=== PATIENT | male | born 1960 | race Caucasian/White ===

== ENCOUNTER 2020-05-22 15:37 | Inpatient (IN) | payer OTHER ==
--- NOTE | 2020-05-22 16:33 | RAD REPORT ---
EXAM DESCRIPTION: Alberto Single View05/22/2020 4:21 pm CLINICAL HISTORY: Chest pain COMPARISON: none FINDINGS: [id number] bilateral pulmonary opacities. . The heart is normal size IMPRESSION: [id number] bilateral pulmonary opacities may represent pulmonary edema or pneumon ia
[2020-05-22] MEDS ORDERED: METHYLPREDNISOLONE 125 MG INJ ONE (16:44)
[2020-05-22] MEDS ORDERED: ALBUTEROL 2.5 MG/3 ML NEB SOL ONE (16:44)
[2020-05-22] MEDS ORDERED: NA CHLORIDE 0.9% 100 ML ONE (16:44)
[2020-05-22] MEDS ORDERED: IPRATROPIUM BROM 0.5MG/2.5ML ONE (16:44)
[2020-05-22] MEDS ORDERED: CEFTRIAXONE/SWI 1gm 1 GM/10 ML SYR ONE (16:44)
[2020-05-22 16:56] LABS: ALT/SGPT 21 U/L (12-78); AST/SGOT 27 U/L (15-37); Albumin 3.1 g/dL (3.4-5.0); Alkaline Phosphatase 137 U/L (45-117); BUN Blood Urea Nitrogen 10 mg/dL (7-18); Bicarbonate 24 mmol/L (21-32); Bilirubin Direct 0.3 mg/dL (0-0.2); Bilirubin Total 0.9 mg/dL (0.2-1.0); Glucose Level 183 mg/dL (74-106); Magnesium 1.9 mg/dL (1.8-2.4); NT PRO-BNP 168 pg/mL (<125); Protein, Total 8.7 g/dL (6.4-8.2); Sodium Level 133 mmol/L (136-145); Troponin (Emerg Dept Use Only) < 0.02 ng/mL (0.0-0.045)
[2020-05-22 17:03] LABS: Blood Gas Oxyhemoglobin 84.9 % (94-97); Blood O2 Saturation 88.3 % (92-98.5)
[2020-05-22 17:16] LABS: Absolute Lymphocytes (CBC) 1.1 K/uL (0.7-4.9); Basophils % 0.4 % (0-1.3); Hematocrit 47.3 % (39.6-49.0); Lymphocytes % 4.9 % (15.3-44.8); MPV 7.7 fL (7.6-11.3); Protime INR 1.34; RBC Red Blood Cell Count 5.78 M/uL (4.33-5.43)
[2020-05-22] MEDS ORDERED: NA CHLORIDE 0.9% 500 ML ONE (17:57)
[2020-05-22 18:24] LABS: SARS-COV-2 RT PCR NEGATIVE (NEGATIVE)
[2020-05-22 18:51] LABS: Ferritin 472.7 ng/mL (26-388)
--- NOTE | 2020-05-22 19:10 | ER ---
Nurse's Notes [facility] Name: Say Olivera Age: 60 yrs Sex: Male : 1960 Arrival Date: 05/22/2020 Time: 15:39 Bed 4 Private MD: Diagnosis: Pneumonia, unspecified organism;Hypoxia Presentation: 05/22 15:47 Chief complaint: Patient states: CP, cough, SOB since Thursday. No known fever. ll1 Coronavirus screen: Client denies travel out of the [place] in the last 14 days. congestion, cough unrelated to allergies, difficulty breathing, shortness of breath, Client presents with at least one sign or symptom that may indicate coronavirus-19. Standard/surgical mask placed on the client. Ebola Screen: Patient denies travel to an Ebola-affected area in the 21 days before illness onset. Initial Sepsis Screen: Does the patient meet any 2 criteria? RR > 20 per min. HR > 90 bpm. No. Patient's initial sepsis screen is negative. Does the patient have a suspected source of infection? Yes: Productive cough/pneumonia. Risk Assessment: Do you want to hurt yourself or someone else? Patient reports no desire to harm self or others. Onset of symptoms was May 18, 2020. 15:47 Method Of Arrival: Ambulatory ll1 15:47 Acuity: PIERRE 2 ll1 Triage Assessment: 15:50 General: Appears distressed, uncomfortable, obese, Behavior is cooperative, appropriate bp for age, anxious. Pain: Denies pain. EENT: No deficits noted. Neuro: No deficits noted. Cardiovascular: Clubbing of nail beds Patient's skin is warm and dry. Respiratory: Airway is patent Respiratory effort is even, labored, pursed lip, Respiratory pattern is hyperventilation. GI: No signs and/or symptoms were reported involving the gastrointestinal system. : No signs and/or symptoms were reported regarding the genitourinary system. Derm: Skin is dusky. Musculoskeletal: No deficits noted. Historical: - Allergies: 15:46 thorazine; ll1 15:46 yellow dye #5; ll1 15:46 shrimp/shellfish; ll1 - PMHx: 15:46 Diabetes - IDDM; schizoaffective; COPD; Hypertension; High Cholesterol; ll1 15:48 polycythemia vera; ll1 - PSHx: 15:46 None; ll1 - Immunization history:: Flu vaccine is up to date. . - Social history:: Smoking status: Patient reports the use of cigarette tobacco products, smokes one-half pack cigarettes per day. Screenin:50 Abuse screen: Denies threats or abuse. Denies injuries from another. Nutritional bp screening: No deficits noted. Tuberculosis screening: No symptoms or risk factors identified. Fall Risk None identified. Assessment: 15:50 General: SEE TRIAGE NOTE. bp 16:58 Reassessment: No changes from previously documented assessment. Patient and/or family bp updated on plan of care and expected duration. Pain level reassessed. Patient is alert, oriented x 3, equal unlabored respirations, skin warm/dry/pink. RT AT B/S. 18:02 Reassessment: No changes from previously documented assessment. Patient and/or family bp updated on plan of care and expected duration. Pain level reassessed. Patient is alert, oriented x 3, equal unlabored respirations, skin warm/dry/pink. BIPAP IN PLACE. DISPO PENDING. 19:32 General: Appears uncomfortable, Behavior is appropriate for age. Pain: Denies pain. ea Neuro: Level of Consciousness is awake, alert, obeys commands, Oriented to person, place, time. Cardiovascular: Patient's skin is warm and dry. Respiratory: Airway is patent Respiratory effort is even, unlabored, Respiratory pattern is regular, symmetrical. Derm: Skin is pink, warm \T\ dry. Vital Signs: 15:47 BP 115 / 67; Pulse 114; Resp 28; Temp 97.9; Pulse Ox 81% ; Weight 121.56 kg; Height 5 ll1 ft. 6 in. (167.64 cm); Pain 6/10; 16:58 BP 124 / 74; Pulse 110; Resp 39; Pulse Ox 90% on 15% Nebulizer Mask; bp 18:02 BP 134 / 99; Pulse 102; Resp 44; Pulse Ox 99% ; bp 19:30 BP 121 / 72; Pulse 90; Resp 32; Pulse Ox 94% on BiPAP; sg 20:44 BP 132 / 83; Pulse 98; Resp 25; Temp 98; Pulse Ox 95% on BiPAP; ea 15:47 Body Mass Index 43.26 (121.56 kg, 167.64 cm) 1 ED Course: 15:39 Patient arrived in ED. ds1 15:46 Arm band placed on Patient placed in an exam room, on a stretcher. ll1 15:48 Triage completed. ll1 15:50 Kamron Prater NP is PHCP. pm1 15:50 Ace Walker MD is Attending Physician. pm1 15:50 Patient has correct armband on for positive identification. Bed in low position. Call bp light in reach. Side rails up X2. monitoring engineer on. Pulse ox on. NIBP on. 15:56 Robin Schwarz, HEATHER is Primary Nurse. bp 16:05 EKG done, by ED staff, reviewed by Kamron Prater NP. em1 16:15 Inserted saline lock: 20 gauge in right antecubital area, using aseptic technique. bp Blood collected. 16:48 XRAY Chest (1 view) In Process Unspecified. EDMS 17:22 COVID swab sent to lab. em1 19:03 CT Chest For PE Angio In Process Unspecified. EDMS 19:09 Yfn Mccarty FNP-C is Hospitalizing Provider. pm1 19:16 Mario Gregorio MD is Hospitalizing Provider. la1 20:12 No provider procedures requiring assistance completed. Patient admitted, IV remains in sg place. 21:04 Contacted [place] Notification Center regarding pt admission. The Notification ID is [id number]. The Authorization ID is [id number]. Information passed on to Registration. Administered Medications: 16:15 Drug: Albuterol - atroVENT (ipratropium) (3:1) (2.5 mg - 0.5 mg) 3 ml Route: Nebulizer; bp 17:00 Follow up: Response: No adverse reaction bp 16:15 Drug: SOLU-Medrol 125 mg Route: IVP; Site: right antecubital; bp 16:59 Follow up: Response: No adverse reaction bp 16:15 Drug: Rocephin (cefTRIAXone) 1 grams Route: IV; Rate: calculated rate; Site: right bp antecubital; 17:30 Drug: NS 0.9% 500 ml Route: IV; Rate: bolus; Site: right antecubital; bp 19:00 Follow up: Response: No adverse reaction; IV Status: Completed infusion sg 20:21 Not Given (Other Intervention Used): NS 0.9% (30 ml/kg) 30 ml/kg IV at bolus once; sg Sepsis Protocol 20:30 Drug: AZITHromycin 500 mg Route: IVPB; Infused Over: 1 hrs; Site: right antecubital; sg Outcome: 19:09 Decision to Hospitalize by Provider. pm1 20:12 Instructed on the need for admit, Demonstrated understanding of instructions. sg 20:43 Admitted to Med/surg accompanied by tech, via wheelchair, room 205, on monitor, Report ea called to Receiving nurse on second floor 20:43 Condition: stable 20:44 Patient left the ED. sg Signatures: Dispatcher [employer] EDMS Edward Bermeo, RN RN Atiya Shelton ds1 Ramo Olvera em1 Yfn Mccarty, BLANKING PRESS OPERATOR-C BLANKING PRESS OPERATOR-Cla1 Kamron Prater, FOOD AND BEVERAGE LEAD FOOD AND BEVERAGE LEAD pm1 Tammy Catalan RN Robin Valadez ea, RN RN bp Lewis, Lynsay, RN RN ll1 Massimo Heath tt3 Corrections: (The following items were deleted from the chart) 15:56 15:47 Chief complaint: Patient states: CP, SOB since Thursday. No known fever. ll1 ll1 20:38 18:30 AZITHromycin 500 mg IVPB in right forearm over 1 hrs [facility] 20:38 19:30 Response: No adverse reaction; IV Status: Completed infusion [facility] 20:38 20:30 AZITHromycin 500 mg IVPB in right forearm over 1 hrs [facility]
--- NOTE | 2020-05-22 19:10 | EDPHYS ---
Physician Documentation [facility] Name: Say Olivera Age: 60 yrs Sex: Male : 1960 Arrival Date: 05/22/2020 Time: 15:39 Bed 4 Private MD: ED Physician Ace Walker HPI: 05/22 16:03 This 60 yrs old Male presents to ER via Ambulatory with complaints of Chest pm1 Pain, Shortness Of Breath. 16:03 The patient has shortness of breath at rest. Onset: The symptoms/episode began/occurred pm1 and became worse 3 day(s) ago, Has baseline shortness of breath for many years. Duration: The symptoms are continuous, and are steadily getting worse. The patient's shortness of breath is aggravated by exertion, light activity, is alleviated by nothing. Associated signs and symptoms: Pertinent positives: productive cough, Pertinent negatives: fever, nausea, vomiting. Severity of symptoms: in the emergency department the symptoms are worse. The patient has been recently seen by a physician: Recently diagnosed with COPD by PCP LINDY. Patient smoking 2-4 cigarettes per day. Historical: - Allergies: 15:46 thorazine; ll1 15:46 yellow dye #5; ll1 15:46 shrimp/shellfish; ll1 - PMHx: 15:46 Diabetes - IDDM; schizoaffective; COPD; Hypertension; High Cholesterol; ll1 15:48 polycythemia vera; ll1 - PSHx: 15:46 None; ll1 - Immunization history:: Flu vaccine is up to date. . - Social history:: Smoking status: Patient reports the use of cigarette tobacco products, smokes one-half pack cigarettes per day. ROS: 16:03 Constitutional: Negative for fever, chills, and weight loss. pm1 16:03 Abdomen/GI: Negative for abdominal pain, nausea, vomiting, diarrhea, and constipation, Back: Negative for injury and pain, MS/Extremity: Negative for injury and deformity, Skin: Negative for injury, rash, and discoloration, Neuro: Negative for headache, weakness, numbness, tingling, and seizure. 16:03 Cardiovascular: Positive for chest pain, Negative for edema, palpitations. 16:03 Respiratory: Positive for cough, dyspnea on exertion, shortness of breath. Exam: 16:03 Chest/axilla: Normal chest wall appearance and motion. Nontender with no deformity. pm1 No lesions are appreciated. 16:03 Back: No spinal tenderness. No costovertebral tenderness. Full range of motion. MS/ Extremity: Pulses equal, no cyanosis. Neurovascular intact. Full, normal range of motion. 16:03 Constitutional: The patient appears alert, awake, comfortable, non-diaphoretic, non-toxic, well developed, well hydrated, well groomed, well nourished. 16:03 Cardiovascular: Rate: normal, tachycardic, actual rate is 114 bpm, Rhythm: regular, Pulses: no pulse deficits are appreciated, Edema: is not appreciated. 16:03 Abdomen/GI: Exam negative for acute changes, Inspection: obese Palpation: abdomen is soft and non-tender, in all quadrants. 16:03 Skin: Appearance: normal except for affected area, Color: bluish nose, yellowed and curved nails. 16:03 Neuro: Exam negative for acute changes, Orientation: is normal, Mentation: is normal, Motor: is normal, moves all fours. Vital Signs: 15:47 BP 115 / 67; Pulse 114; Resp 28; Temp 97.9; Pulse Ox 81% ; Weight 121.56 kg; Height 5 ll1 ft. 6 in. (167.64 cm); Pain 6/10; 16:58 BP 124 / 74; Pulse 110; Resp 39; Pulse Ox 90% on 15% Nebulizer Mask; bp 18:02 BP 134 / 99; Pulse 102; Resp 44; Pulse Ox 99% ; bp 19:30 BP 121 / 72; Pulse 90; Resp 32; Pulse Ox 94% on BiPAP; sg 20:44 BP 132 / 83; Pulse 98; Resp 25; Temp 98; Pulse Ox 95% on BiPAP; ea 15:47 Body Mass Index 43.26 (121.56 kg, 167.64 cm) ll1 MDM: 15:53 Patient medically screened. pm1 17:11 Data reviewed: vital signs. pm1 18:03 Counseling: I had a detailed discussion with the patient and/or guardian regarding: the pm1 historical points, exam findings, and any diagnostic results supporting the discharge/admit diagnosis, lab results, radiology results, the need for further work-up and treatment in the hospital, Patient would like to stay at this hospital instead of transfer to the NH system. 03/30 15:55 Order name: Basic Metabolic Panel pm1 05/22 15:55 Order name: CBC with Diff pm05/22 15:55 Order name: LFT's pm05/22 15:55 Order name: Magnesium; Complete Time: 17:10 pm1 05/22 15:55 Order name: NT PRO-BNP; Complete Time: 17:10 pm1 05/22 15:55 Order name: PT-INR; Complete Time: 17:32 pm05/22 15:55 Order name: Troponin (emerg Dept Use Only); Complete Time: 17:10 pm1 05/22 15:55 Order name: Procalcitonin; Complete Time: 17:14 pm1 05/22 15:55 Order name: Lactate; Complete Time: 17:10 pm1 05/22 15:55 Order name: Basic Metabolic Panel; Complete Time: 17:10 EDMS 05/22 15:55 Order name: CBC with Automated Diff EDMS 05/22 15:55 Order name: Liver (Hepatic) Function; Complete Time: 17:10 EDMS 05/22 15:56 Order name: Blood Culture Adult (2) pm05/22 15:55 Order name: XRAY Chest (1 view); Complete Time: 16:49 pm1 05/22 16:03 Order name: Strep; Complete Time: 17:55 pm1 05/22 16:46 Order name: ABG; Complete Time: 17:31 pm1 05/22 17:09 Order name: CPAP pm05/22 17:16 Order name: Ferritin; Complete Time: 19:05 pm1 05/22 17:16 Order name: CRP; Complete Time: 19:05 pm1 05/22 17:16 Order name: D-Dimer; Complete Time: 19:05 pm1 05/22 17:55 Order name: Throat Culture EDMS 05/22 18:24 Order name: COVID-19/FLU A+B; Complete Time: 18:26 EDMS 05/22 18:29 Order name: CT Chest For PE Angio; Complete Time: 19:19 pm1 05/22 20:32 Order name: CBC Smear Scan EDMS 05/22 15:55 Order name: EKG; Complete Time: 15:56 pm1 05/22 15:55 Order name: Cardiac monitoring; Complete Time: 15:59 pm1 05/22 15:55 Order name: EKG - Nurse/Tech; Complete Time: 16:05 pm1 05/22 15:55 Order name: IV Saline Lock; Complete Time: 16:38 pm1 05/22 15:55 Order name: Labs collected and sent; Complete Time: 16:38 pm1 05/22 15:55 Order name: O2 Per Protocol; Complete Time: 15:58 pm1 05/22 15:55 Order name: O2 Sat Monitoring; Complete Time: 15:58 pm1 05/22 16:03 Order name: Droplet/Contact Precautions; Complete Time: 16:43 pm1 Administered Medications: 16:15 Drug: Albuterol - atroVENT (ipratropium) (3:1) (2.5 mg - 0.5 mg) 3 ml Route: Nebulizer; bp 17:00 Follow up: Response: No adverse reaction bp 16:15 Drug: SOLU-Medrol 125 mg Route: IVP; Site: right antecubital; bp 16:59 Follow up: Response: No adverse reaction bp 16:15 Drug: Rocephin (cefTRIAXone) 1 grams Route: IV; Rate: calculated rate; Site: right bp antecubital; 17:30 Drug: NS 0.9% 500 ml Route: IV; Rate: bolus; Site: right antecubital; bp 19:00 Follow up: Response: No adverse reaction; IV Status: Completed infusion sg 20:21 Not Given (Other Intervention Used): NS 0.9% (30 ml/kg) 30 ml/kg IV at bolus once; Sepsis Protocol 20:30 Drug: AZITHromycin 500 mg Route: IVPB; Infused Over: 1 hrs; Site: right antecubital; sg Disposition: 05/22/20 19:09 Hospitalization ordered by Mario Gregorio for Inpatient Admission. Preliminary diagnosis are Pneumonia, unspecified organism, Hypoxia. - Bed requested for Telemetry/MedSurg (Inpatient). - Status is Inpatient Admission. sg - Condition is Stable. - Problem is new. - Symptoms have improved. Addendum: 05/25/2020 15:41 Co-signature as Attending Physician, Ace olivares a2 Signatures: Dispatcher [employer] EDMI Saritha Rose RN RN Edward Bermeo RN RN sg Attema, Lee, FNP-C MANAGER TRADE-Cla1 Kamron Prater, GROUP MARKETING VP GROUP MARKETING VP pm1 Robin Schwarz, RN RN bp Ace Walker MD MD ma2 Claus Bueno, HEATHER RN ll1 Corrections: (The following items were deleted from the chart) 03 17:19 16:46 CORONAVIRUS+MR.LAB.BRZ ordered. EDMS EDMS 17:19 16:46 Influenza Screen (A \T\ B)+BA.LAB.BRZ ordered. EDMS EDMS 19:16 19:09 Hospitalization Ordered by Yfn EASLEY-C for Inpatient Admission. Preliminary la1 diagnosis is Pneumonia, unspecified organism; Hypoxia. Bed requested for Telemetry/MedSurg (Inpatient). Status is Inpatient Admission. Condition is Stable. Problem is new. Symptoms have improved. pm1 19:52 19:16 05/22/2020 19:09 Hospitalization Ordered by Mario Gregorio MD for Inpatient mw Admission. Preliminary diagnosis is Pneumonia, unspecified organism; Hypoxia. Bed requested for Telemetry/MedSurg (Inpatient). Status is Inpatient Admission. Condition is Stable. Problem is new. Symptoms have improved. la1 20:44 19:52 05/22/2020 19:09 Hospitalization Ordered by Mario Gregorio MD for Inpatient sg Admission. Preliminary diagnosis is Pneumonia, unspecified organism; Hypoxia. Bed requested for Telemetry/MedSurg (Inpatient). Status is Inpatient Admission. Condition is Stable. Problem is new. Symptoms have improved. mw
--- NOTE | 2020-05-22 19:16 | RAD REPORT ---
EXAM DESCRIPTION: CT - Chest For Pe Angio - 05/22/2020 7:03 pm CLINICAL HISTORY: Shortness of breath COMPARISON: May 22, 2020 chest x-ray TECHNIQUE: Dynamically enhanced axial 3 mm thick images of the chest were obtained during administra tion of <100> mL Isovue 370 IV contrast. Coronal and oblique reconstruction images were generated and reviewed. Exam utilizes a protocol for optimal evaluation of pulmonary arterial tree. Maximum intensity projections 3D imaging was utilized All CT scans are performed using dose optimization technique as appropriate and may include automated exposure control or mA/KV adjustment according to patient size. FINDINGS: A pulmonary embolus is not seen. A thoracic aortic aneurysm is not noted. A pleural effusion is not seen. A pericardial effusion is not seen. Moderate to marked bilateral ground-glass opacities IMPRESSION: Negative for a pulmonary embolism. Moderate to marked bilateral ground-glass opacities may represent pneumonia or pulmonary edema
[2020-05-22 20:32] LABS: Blood Morphology Comment NOT SEEN (NOT SEEN); Platelet Estimate INCR; White Blood Cell Scan OK (OK)
--- NOTE | 2020-05-22 20:43 | P.HP ---
Certification for Inpatient Patient admitted to: Inpatient With expected LOS: >2 Midnights Patient will require the following post-hospital care: None Practitioner: I am a practitioner with admitting privileges, knowledge of patient current condition, hospital course, and medical plan of care. Services: Services provided to patient in accordance with Admission requirements found in Title 42 Section 412.3 of the Code of Federal Regulations <Yfn Mccarty - Last Filed: 05/22/20 20:39> Patient History Date of Service: 05/22/20 Primary Care Provider: LINDY Reason for admission: Pneumonia History of Present Illness: 60-year-old male with history of COPD, tobacco abuse, polycythemia presents emergency department for 3 days of shortness of breath. Upon arrival to the emergency department patient was noted to be saturating in the 70s. Evaluation in the emergency department significant for white blood cell count 22, hemoglobin 15.9 hematocrit 47.3 platelets 547 D-dimer 1099 pro calcitonin 140.19 CRP 285 sodium 133 blood gas significant for PO2 54.6, PC of 230.6 chest x-ray mild to moderate bilateral pulmonary opacities CT PE protocol negative for PE moderate to marked bilateral ground-glass opacities which may represent pneumonia or pulmonary edema. Patient afebrile, tachypneic to the 40s, tolerating BiPAP well at this time. Patient with known history of polycythemia, sees Hematology on outpatient basis, last night from hematology leaves plus anemia likely related heavy tobacco abuse patient smokes 1-4 packs of cigarettes per day. ED provider wishes to admit for further evaluation and management. - Past Medical/Surgical History -: COPD -: Schizoaffective disorder -: Polycythemia -: Tobacco abuse -: Diabetes mellitus type 2 -: Left forearm skin cancer -: Right hand Psychosocial/ Personal History: Patient lives at home alone, is retired from the . - Family History Father -: Heart disease Mother -: Heart disease - Social History Smoking Status: Current every day smoker Counseled patient to stop smoking for: less than 10 minutes Smoking therapy provided: Yes Alcohol use: No CD- Drugs: No Caffeine use: No <Yfn Mccarty - Last Filed: 05/22/20 20:39> Date of Service: 05/23/20 <Mario Gregorio - Last Filed: 05/23/20 18:17> Review of Systems 10-point ROS is otherwise unremarkable Respiratory: Cough, Shortness of Breath, SOB with Excertion, Sputum, Wheezing <Yfn Mccarty - Last Filed: 05/22/20 20:39> Physical Examination - Physical Exam General: Alert, In no apparent distress, Oriented x3, Obese, Other (Poor hygiene noted) HEENT: Atraumatic, PERRLA, Mucous membr. moist/pink, EOMI, Sclerae nonicteric Neck: Supple, 2+ carotid pulse no bruit, No LAD, Without JVD or thyroid abnormality Respiratory: Clear to auscultation bilaterally, Diminished (Bilaterally) Cardiovascular: Regular rate/rhythm, Normal S1 S2 Gastrointestinal: Normal bowel sounds, No tenderness Musculoskeletal: No tenderness Integumentary: No rashes Neurological: Normal speech, Normal strength at 5/5 x4 extr, Normal tone, Normal affect Lymphatics: No axilla or inguinal lymphadenopathy - Studies Laboratory Data (last 24 hrs) 05/22/20 16:15: PT 15.4 H, INR 1.34 05/22/20 16:15: WBC 22.00 H*, Hgb 15.9, Hct 47.3, Plt Count 547 H 05/22/20 16:15: Sodium 133 L, Potassium 4.0, BUN 10, Creatinine 0.77, Glucose 1 83 H, Magnesium 1.9, Total Bilirubin 0.9, AST 27, ALT 21, Alkaline Phosphatase 137 H Microbiology Data (last 24 hrs): 05/22/20 16:15 Throat Group A Streptococcus Rapid Screen - Final <Yfn Mccarty - Last Filed: 05/22/20 20:39> - Studies Laboratory Data (last 24 hrs) 05/22/20 16:15: WBC 22.00 H*, Hgb 15.9, Hct 47.3, Plt Count 547 H Microbiology Data (last 24 hrs): 05/22/20 16:15 Throat Group A Streptococcus Rapid Screen - Final <Mario Gregorio - Last Filed: 05/23/20 18:17> Assessment and Plan - Plan Assessment Acute hypoxic respiratory failure secondary to bilateral bacterial pneumonia complicated with history of COPD and heavy tobacco abuse Diabetes mellitus type 2 Hypertension Hyperlipidemia Schizoaffective disorder Polycythemia Plan Acute hypoxic respiratory failure secondary to bilateral bacterial pneumonia complicated with history of COPD and heavy tobacco abuse: Blood cultures obtained in the emergency department, patient does not appear septic at this time. Patient currently tolerating BiPAP well, continue with IV Rocephin/Zithromax, IV steroids, scheduled nebs, daily labs. Pulmonology consulted for additional management of significant bilateral pneumonia with COPD. DVT prophylaxis Lovenox 40 mg subcutaneous once daily. Diabetes mellitus type 2: A1c with morning labs, a.c. HS Accu-Cheks, sliding scale insulin therapy. Hypertension, Hyperlipidemia ,Schizoaffective disorder, Polycythemia: Stable, continue home medications. Discharge Plan: Home Plan to discharge in: Greater than 2 days - Advance Directives Does patient have a Living Will: No Does patient have a Durable POA for Healthcare: No - Code Status/Comfort Care Code Status Assessed: Yes (Full code) Critical Care: No Time Spent Managing Pts Care (In Minutes): 55 <Yfn Mccarty - Last Filed: 05/22/20 20:39> - Plan Plan of care reviewed as noted above. Acute hypoxemic respiratory failure secondary to bilateral bacterial pneumonia Continue antibiotics, BiPAP Pulmonology consulted <Mario Gregorio - Last Filed: 05/23/20 18:17>
[2020-05-22] MEDS ORDERED: AZITHROMYCIN 500 MG INJ IVPB ONE (20:49)
[2020-05-22] MEDS ORDERED: NA CHLORIDE 0.9% 250 ML ONE (20:49)
[2020-05-22] MEDS ORDERED: ONDANSETRON 4 MG/2 ML VIAL IV PRN (21:02)
[2020-05-22] MEDS: ALBUTEROL 2.5 MG/3 ML NEB SOL NEB SCH (21:50)
[2020-05-22] MEDS: IPRATROPIUM BROM 0.5MG/2.5ML NEB SCH (21:50)
[2020-05-22] MEDS ORDERED: NICOTINE 21 MG/PAT TD ONE (22:45)
[2020-05-22] MEDS ORDERED: INSULIN -REGULAR HUMAN 50 UNIT/0.5 ML ML ONE (22:46)
[2020-05-22] MEDS ORDERED: NA CHLORIDE 0.9% 1,000 ML ONE (22:47)
[2020-05-22] MEDS: NA CHLORIDE 0.9% 1,000 ML IV SCH (23:01)
[2020-05-22] MEDS: NICOTINE 21 MG/PAT TD SCH (23:05)
[2020-05-22] MEDS: INSULIN -REGULAR HUMAN 50 UNIT/0.5 ML ML SQ SCH (23:06)
[2020-05-22 23:26] VITALS: BMI 41.9
[2020-05-23] MEDS ORDERED: HALOPERIDOL LACT 5 MG/ML INJ IV ONE
[2020-05-23] MEDS: METHYLPREDNISOLONE 125 MG INJ IV SCH ×4 (00:14→21:30)
[2020-05-23] MEDS ORDERED: METHYLPREDNISOLONE 125 MG INJ ONE (00:26)
[2020-05-23] MEDS ORDERED: HALOPERIDOL LACT 5 MG/ML INJ ONE (00:26)
[2020-05-23 01:01] LABS: Arterial Blood Carboxyhemoglob 1.3 % (0-1.5); Blood Gas Oxyhemoglobin 91.7 % (94-97); Blood O2 Saturation 93.9 % (92-98.5)
[2020-05-23] MEDS: ALBUTEROL 2.5 MG/3 ML NEB SOL NEB SCH ×4 (01:55→20:40)
[2020-05-23] MEDS: IPRATROPIUM BROM 0.5MG/2.5ML NEB SCH ×4 (01:55→20:40)
[2020-05-23] MEDS ORDERED: DOCUSATE NA 100 MG CAP PO PRN (04:34)
[2020-05-23 06:10] LABS: Absolute Lymphocytes (CBC) 0.9 K/uL (0.7-4.9); Basophils % 0.1 % (0-1.3); Hematocrit 43.8 % (39.6-49.0); Lymphocytes % 3.7 % (15.3-44.8); MPV 7.5 fL (7.6-11.3); RBC Red Blood Cell Count 5.39 M/uL (4.33-5.43)
[2020-05-23 06:23] LABS: Albumin 2.6 g/dL (3.4-5.0); Bilirubin Total 0.4 mg/dL (0.2-1.0); Magnesium 2.3 mg/dL (1.8-2.4); Potassium 4.6 mmol/L (3.5-5.1); Thyroid Stimulating Hormone 0.239 uIU/mL (0.360-3.740)
[2020-05-23] MEDS: NA CHLORIDE 0.9% 1,000 ML IV SCH (07:02)
[2020-05-23 09:00] LABS: Blood Morphology Comment NOT SEEN (NOT SEEN); Platelet Estimate INCR; White Blood Cell Scan OK (OK)
[2020-05-23] MEDS ORDERED: CEFTRIAXONE 1 GM/NS 50 ML 1 GM/50 ML BAG IV SCH (09:00)
[2020-05-23] MEDS: DOCOSAHEXANOIC AC/EPA 1000 MG PO SCH (09:00)
[2020-05-23] MEDS: HOME MED 1 EA UNK (Lurasidone Hcl [Latuda] 60 MG Tablet) PO SCH (09:00)
[2020-05-23] MEDS ORDERED: AZITHROMYCIN 250 MG TAB PO SCH (09:00)
[2020-05-23] MEDS ORDERED: AZITHROMYCIN IV 500 MG in NA CHLORIDE 0.9% 250 ML IVPB SCH (09:00)
[2020-05-23] MEDS: BENZTROPINE 1 MG TAB PO SCH ×2 (09:00→21:31)
[2020-05-23] MEDS: INSULIN -REGULAR HUMAN 50 UNIT/0.5 ML ML SQ SCH ×4 (09:04→21:29)
[2020-05-23] MEDS: CEFTRIAXONE/SWI 1gm 1 GM/10 ML SYR IV SCH (09:05)
[2020-05-23] MEDS: ENOXAPARIN 40 MG/0.4 ML SQ SCH (09:05)
[2020-05-23] MEDS: NICOTINE 21 MG/PAT TD SCH (09:05)
[2020-05-23] MEDS: ASPIRIN EC 81 MG TAB PO SCH (09:06)
[2020-05-23] MEDS: SERTRALINE HCL 100 MG TAB PO SCH (09:06)
[2020-05-23] MEDS: VITAMIN D 400 UNIT TAB PO SCH (09:06)
[2020-05-23] MEDS: levoFLOXacin 500 MG TAB PO SCH (09:30)
[2020-05-23] MEDS: FUROSEMIDE 20 MG/ 2ML VIAL IV SCH (09:31)
--- NOTE | 2020-05-23 12:36 | P.CNS ---
Date of Consult: 05/23/20 Primary Care Provider: LINDY Chief Complaint: Respiratory failure History of Present Illness: Patient is 60 years of age with a history of COPD tobacco abuse polycythemic is followed up at the [facility] became sick about 3 days ago with significant hypoxemia elevated white count and pro calcitonin is currently on BiPAP CT scan shows diffuse bilateral ground-glass changes Allergies apple Allergy (Verified 05/22/20 21:56) unknown corn Allergy (Verified 05/22/20 21:56) unknown Fish Containing Products Allergy (Verified 05/22/20 21:56) unknown fish derived Allergy (Verified 05/22/20 21:56) unknown chlorpromazine [From Thorazine] Adverse Reaction (Verified 05/22/20 21:56) severe confusion, agitation Home Medications: Aspirin [Adult Low Dose Aspirin EC] 81 mg PO DAILY 05/23/20 Atorvastatin Calcium 20 mg PO BEDTIME 05/23/20 Benztropine Mesylate [Cogentin*] 1 mg PO BID 05/23/20 Cephalexin [Keflex*] 500 mg PO Q8H 05/23/20 Cholecalciferol (Vitamin D3) [Vitamin D3] 10 mcg PO DAILY 05/23/20 Cinnamon Bark [Cinnamon] 1 cap PO DAILY 05/23/20 Docosahexanoic AC/Epa [Fish Oil 1,000 MG*] 1 cap PO DAILY 05/23/20 Docusate Sodium 100 mg PO DAILY PRN 05/23/20 Haloperidol Decanoate [Haldol Decanoate 50] 50 mg IM Q30D 05/23/20 Ibuprofen 800 mg PO TID PRN 05/23/20 Lurasidone HCl [Latuda] 60 mg PO DAILY 05/23/20 Psyllium [Metamucil (Hydrocil)*] 5 ml PO DAILY PRN 05/23/20 Sertraline HCl 200 mg PO DAILY 05/23/20 Sulfamethoxazole/Trimethoprim [Sulfamethoxazole-Tmp Ds Tablet] 1 tab PO Q12H 05/23/20 - Past Medical/Surgical History Diabetic: Yes -: COPD -: Schizoaffective disorder -: Polycythemia -: Tobacco abuse -: Diabetes mellitus type 2 -: HTN -: Left forearm skin cancer -: Right hand infection and I&D Psychosocial/ Personal History: Patient lives at home alone, is retired from the . - Family History Father Medical History: Heart disease Mother Medical History: Heart disease - Social History Smoking Status: Current every day smoker Alcohol use: No CD- Drugs: No Caffeine use: Yes Place of Residence: Home Review of Systems General: Weakness Respiratory: Cough, Shortness of Breath Physical Examination Temp Pulse Resp BP Pulse Ox 96.7 F L 89 25 H 125/66 95 05/23/20 08:00 05/23/20 09:31 05/23/20 08:00 05/23/20 09:31 05/23/20 08:00 General: Alert, In no apparent distress, Mild distress Respiratory: Clear to auscultation bilaterally, Crackles/rales Cardiovascular: No edema, Normal S1 S2 Gastrointestinal: Normal bowel sounds, Soft and benign Laboratory Data (last 24 hrs) 05/22/20 16:15: PT 15.4 H, INR 1.34 05/22/20 16:15: WBC 22.00 H*, Hgb 15.9, Hct 47.3, Plt Count 547 H 05/22/20 16:15: Sodium 133 L, Potassium 4.0, BUN 10, Creatinine 0.77, Glucose 183 H, Magnesium 1.9, Total Bilirubin 0.9, AST 27, ALT 21, Alkaline Phosphatase 137 H - Problems (1) Pneumonia Current Visit: Yes Status: Acute Plan: Patient is 60 years of age admitted with respiratory distress he has bilateral pneumonia bilateral ground-glass changes significantly elevated pro calcitonin CRP elevated chemistries reviewed CRP is elevated CT scan reviewed cultures have been ordered agree with steroid add levofloxacin for atypical coverage blood pressure is stable white count elevated Qualifiers: Pneumonia type: due to unspecified organism Laterality: bilateral
[2020-05-23] MEDS ORDERED: GLUCAGON 1 MG/VIAL IM PRN (14:19)
--- NOTE | 2020-05-23 14:23 | P.PN ---
Subjective Date of Service: 05/23/20 Primary Care Provider: LINDY Chief Complaint: Respiratory failure Subjective: Improving (feels slightly better this morning. breathing more comfortably, still on BIPAP, thirsty) Review of Systems 10-point ROS is otherwise unremarkable Physical Examination - Vital Signs Temperature: 97.3 F Blood Pressure: 154/72 Pulse: 99 Respirations: 20 Pulse Ox (%): 95 - Studies Laboratory Data (last 24 hrs) 05/22/20 16:15: PT 15.4 H, INR 1.34 05/22/20 16:15: WBC 22.00 H*, Hgb 15.9, Hct 47.3, Plt Count 547 H 05/22/20 16:15: Sodium 133 L, Potassium 4.0, BUN 10, Creatinine 0.77, Glucose 183 H, Magnesium 1.9, Total Bilirubin 0.9, AST 27, ALT 21, Alkaline Phosphatase 137 H Microbiology Data (last 24 hrs): 05/22/20 16:15 Throat Group A Streptococcus Rapid Screen - Final Assessment & Plan Physician Review Additional Text: Physical Exam General: alert, NAD HEENT: Sclerae anicteric, normal conjunctiva, BiPAP mask in place Respiratory: Mild expiratory wheeze bilaterally, bilateral crackles at bases Cardiovascular: Regular rate/rhythm, Normal S1 S2 Abd: Normal bowel sounds, No tenderness Ext: no edema, no tenderness Neurological: Normal speech, Normal strength at 5/5 x4 extr, Normal tone, Normal affect Problem list Acute hypoxic respiratory failure secondary to bilateral bacterial pneumonia complicated with history of COPD and heavy tobacco abuse Diabetes mellitus type 2, non insulin dependent Hypertension Hyperlipidemia Schizoaffective disorder Polycythemia blood cultures obtained in ED, continue IV antibiotics, steroids, nebs. COVID- 19 negative Pulm consulted given extensive b/l pneumonia inflammatory markers significantly elevated patient subjectively feeling better Steroid induced hyperglycemia, insulin sliding scale, adjust long-acting as needed Hypertension, Hyperlipidemia ,Schizoaffective disorder, Polycythemia: Stable, continue home medications. Dispo: anticipate dc home in 2-3 days, possibly needing home O2 Time Spent Managing Pts Care (In Minutes): 35
[2020-05-23] MEDS ORDERED: D50W 25 GM/50 ML VIAL IV PRN (14:36)
--- NOTE | 2020-05-23 17:02 | EKG ---
Test Date: 2020-05-22 Test Time: 16:01:18 Chief Recordist: SALIMA MEASUREMENT RESULTS: Intervals: Rate: 104 KS: 132 QRSD: 102 QT: 382 QTc: 502 [place]: P: 39 KS: 132 QRS: -33 T: 85 INTERPRETIVE STATEMENTS: Sinus tachycardia Possible Left atrial enlargement Left axis deviation Abnormal ECG No previous ECG available for comparison Electronically Signed On 05-23-20 17:00:36 CDT by Saroj Owens
[2020-05-23] MEDS: INSULIN 70/30 100 UNITS/ML SQ SCH (17:11)
[2020-05-23 19:58] LABS: Urine Appearance CLEAR (Clear); Urine Bilirubin NEGATIVE (Negative); Urine Blood NEGATIVE (Negative); Urine Color YELLOW (Yellow); Urine Glucose 1+ (Negative); Urine Protein NEGATIVE (Negative)
[2020-05-23 20:08] LABS: Urine Microscopic Reflex NO UMIC
[2020-05-23] MEDS: ATORVASTATIN 20 MG TAB PO SCH (21:30)
[2020-05-24] MEDS: ALBUTEROL 2.5 MG/3 ML NEB SOL NEB SCH ×4 (02:30→20:10)
[2020-05-24] MEDS: IPRATROPIUM BROM 0.5MG/2.5ML NEB SCH ×4 (02:30→20:10)
[2020-05-24 06:22] LABS: ALT/SGPT 33 U/L (12-78); AST/SGOT 32 U/L (15-37); Albumin 2.6 g/dL (3.4-5.0); Alkaline Phosphatase 118 U/L (45-117); BUN Blood Urea Nitrogen 24 mg/dL (7-18); Bicarbonate 23 mmol/L (21-32); Bilirubin Total 0.4 mg/dL (0.2-1.0); Glucose Level 240 mg/dL (74-106); Magnesium 2.5 mg/dL (1.8-2.4); Potassium 4.4 mmol/L (3.5-5.1); Protein, Total 7.4 g/dL (6.4-8.2); Sodium Level 134 mmol/L (136-145)
[2020-05-24 06:29] LABS: Basophils % 0.3 % (0-1.3); Hematocrit 40.5 % (39.6-49.0); Lymphocytes % 4.4 % (15.3-44.8); MPV 7.4 fL (7.6-11.3)
--- NOTE | 2020-05-24 08:30 | RAD REPORT ---
EXAM DESCRIPTION: Alberto Single View05/24/2020 8:12 am CLINICAL HISTORY: Hypoxia/pneumonia COMPARISON: May 22, 2020 FINDINGS: Mild improvement in the bilateral pulmonary opacities Heart is normal size IMPRESSION: Mild improvement in the bilateral pneumonia
--- NOTE | 2020-05-24 08:34 | ECHO ---
HEIGHT: 5 ft 6 in WEIGHT: 260 lb 0 oz DATE OF STUDY: 05/23/[address]: Subhash Pollack MD 2-DIMENSIONAL: YES M.MODE: YES DOPPLER: YES COLOR FLOW: YES TDS: YES PORTABLE: NO DEFINITY: NO BUBBLE STUDY: NO DIAGNOSIS: CONGESTIVE HEART FAILURE CARDIAC HISTORY: CATHERIZATION: NO SURGERY: NO PROSTHETIC VALVE: NO PACEMAKER: NO MEASUREMENTS (cm) DIASTOLIC (NORMALS) SYSTOLIC (NORMALS) IVSd 1.3 (0.6-1.2) LA Diam 4.0 (1.9-4.0) LVEF 67% LVIDd 4.0 (3.5-5.7) LVIDs 2.5 (2.0-3.5) %FS 36% LVPWd 1.4 (0.6-1.2) Ao Diam 3.0 (2.0-3.7) 2 DIMENSIONAL ASSESSMENT: RIGHT ATRIUM: NORMAL LEFT ATRIUM: NORMAL RIGHT VENTRICLE: NORMAL LEFT VENTRICLE: NORMAL TRICUSPID VALVE: NORMAL MITRAL VALVE: NORMAL PULMONIC VALVE: NORMAL AORTIC VALVE: NORMAL PERICARDIAL EFFUSION: NONE AORTIC ROOT: NORMAL LEFT VENTRICULAR WALL MOTION: NORMAL LEFT VENTRICULAR EJECTION FRACTION. DOPPLER/COLOR FLOW: NORMAL. COMMENTS: TECHNICALLY DIFFICULT STUDY. DIASTOLIC DYSFUNCTION. NO EFFUSION. NORMAL LEFT VENTRICULAR EJECTION FRACTION. TECHNOLOGIST: Kvng MOSLEY
[2020-05-24] MEDS ORDERED: levoFLOXacin 500 MG TAB PO SCH (09:00)
[2020-05-24] MEDS: BENZTROPINE 1 MG TAB PO SCH ×2 (09:00→21:07)
[2020-05-24] MEDS: HOME MED 1 EA UNK (Lurasidone Hcl [Latuda] 60 MG Tablet) PO SCH (09:00)
[2020-05-24] MEDS: DOCOSAHEXANOIC AC/EPA 1000 MG PO SCH (09:00)
[2020-05-24] MEDS: NICOTINE 21 MG/PAT TD SCH (09:40)
[2020-05-24] MEDS: CEFTRIAXONE/SWI 1gm 1 GM/10 ML SYR IV SCH (09:41)
[2020-05-24] MEDS: INSULIN -REGULAR HUMAN 50 UNIT/0.5 ML ML SQ SCH ×4 (09:41→21:07)
[2020-05-24] MEDS: ENOXAPARIN 40 MG/0.4 ML SQ SCH (09:41)
[2020-05-24] MEDS: levoFLOXacin 500 MG TAB PO SCH (09:42)
[2020-05-24] MEDS: FUROSEMIDE 20 MG/ 2ML VIAL IV SCH (09:42)
[2020-05-24] MEDS: INSULIN 70/30 100 UNITS/ML SQ SCH ×2 (09:42→16:43)
[2020-05-24] MEDS: ASPIRIN EC 81 MG TAB PO SCH (09:42)
[2020-05-24] MEDS: METHYLPREDNISOLONE 125 MG INJ IV SCH ×2 (09:43→21:06)
[2020-05-24] MEDS: VITAMIN D 400 UNIT TAB PO SCH (09:43)
[2020-05-24] MEDS: SERTRALINE HCL 100 MG TAB PO SCH (09:43)
--- NOTE | 2020-05-24 11:45 | P.PN ---
Subjective Date of Service: 05/24/20 Primary Care Provider: LINDY Chief Complaint: Respiratory failure Subjective: Improving (Patient reports feeling better, hypoxic when taken off BiPAP and to mid 80s. CXR with improvement bilateral opacities. CRP improving Patient reports episode of large diarrhea this morning) Review of Systems 10-point ROS is otherwise unremarkable Physical Examination - Vital Signs Temperature: 96.0 F Blood Pressure: 131/88 Pulse: 90 Respirations: 21 Pulse Ox (%): 94 - Studies Microbiology Data (last 24 hrs): 05/22/20 16:15 Throat Culture & Sensitivity - Final NORMAL UPPER RESPIRATORY MELISSA GROWN. Assessment & Plan Physician Review Additional Text: Physical Exam General: alert, NAD, morbidly obese HEENT: Sclerae anicteric, normal conjunctiva, BiPAP mask in place Respiratory: Mild expiratory wheeze bilaterally, bilateral crackles at bases, diminished throughout Cardiovascular: Regular rate/rhythm, Normal S1 S2 Abd: Normal bowel sounds, No tenderness, soft, nondistended Ext: no edema, no tenderness Neurological: Normal speech, normal affect Problem list Acute hypoxic respiratory failure secondary to bilateral bacterial pneumonia complicated with history of COPD and heavy tobacco abuse Diabetes mellitus type 2, non insulin dependent Hypertension Hyperlipidemia Schizoaffective disorder Polycythemia blood cultures obtained in ED, continue IV antibiotics, steroids, nebs. COVID- 19 negative Cultures without any growth, a sputum culture: Mixed normal respiratory melissa Pulm consulted given extensive b/l pneumonia inflammatory markers significantly elevated, but improving patient subjectively feeling better Still requiring BiPAP, desaturates quickly Steroid induced hyperglycemia, insulin sliding scale, adjust long-acting as needed Hypertension, Hyperlipidemia ,Schizoaffective disorder, Polycythemia: Stable, continue home medications. Diarrhea this morning, will check for C. diff given antibiotic use. Some of patient's symptoms do seem to be COVID related, however patient was COVID negative -and would not necessarily explain the significantly elevated pro calcitonin Dispo: anticipate dc home in 2-3 days, will likely need home O2 given history of COPD and degree of pneumonia Time Spent Managing Pts Care (In Minutes): 35
--- NOTE | 2020-05-24 13:44 | P.PN ---
Subjective Date of Service: 05/24/20 Primary Care Provider: LINDY Chief Complaint: Respiratory failure Subjective: Improving (Patient is improving still on a BiPAP) Review of Systems Respiratory: Shortness of Breath Physical Examination - Vital Signs Temperature: 97.2 F Blood Pressure: 134/68 Pulse: 90 Respirations: 23 Pulse Ox (%): 95 - Physical Exam General: Alert, Oriented x3 Neck: Supple Respiratory: Crackles/rales Cardiovascular: No edema, Regular rate/rhythm - Studies Microbiology Data (last 24 hrs): 05/22/20 16:15 Throat Culture & Sensitivity - Final NORMAL UPPER RESPIRATORY MELISSA GROWN. Assessment And Plan - Current Problems (Diagnosis) (1) Pneumonia Current Visit: Yes Status: Acute Plan: Patient is subjectively feeling better plan to wean him off the oxygen chest x- ray and maybe a little better white count is still elevated of those slightly lower will repeat chest x-ray tomorrow continue with present treatment Isaías chest x-ray tomorrow wean down on the oxygen check serum HIV rule out Pneumocystis patient has bilateral ground-glass changes vital signs stable patient has normal ejection fraction at low-dose spironolactone Qualifiers: Pneumonia type: due to unspecified organism Laterality: bilateral
[2020-05-24] MEDS: SPIRONOLACTONE 25 MG TABLET PO SCH (15:23)
[2020-05-24] MEDS: ATORVASTATIN 20 MG TAB PO SCH (21:06)
[2020-05-24] MEDS: ACETAMINOPHEN 500 MG TAB PO PRN (22:45)
[2020-05-25] MEDS: ALBUTEROL 2.5 MG/3 ML NEB SOL NEB SCH ×4 (01:55→19:45)
[2020-05-25] MEDS: IPRATROPIUM BROM 0.5MG/2.5ML NEB SCH ×4 (01:55→19:45)
[2020-05-25] MEDS: ACETAMINOPHEN 500 MG TAB PO PRN ×2 (04:25→20:31)
[2020-05-25 06:15] LABS: Absolute Lymphocytes (CBC) 0.8 K/uL (0.7-4.9); Hematocrit 41.6 % (39.6-49.0); Lymphocytes % 4.9 % (15.3-44.8); RBC Red Blood Cell Count 5.17 M/uL (4.33-5.43)
[2020-05-25 06:37] LABS: ALT/SGPT 41 U/L (12-78); AST/SGOT 32 U/L (15-37); Albumin 2.7 g/dL (3.4-5.0); Alkaline Phosphatase 116 U/L (45-117); BUN Blood Urea Nitrogen 16 mg/dL (7-18); Bicarbonate 27 mmol/L (21-32); Bilirubin Total 0.3 mg/dL (0.2-1.0); Glucose Level 262 mg/dL (74-106); Magnesium 2.3 mg/dL (1.8-2.4); Protein, Total 7.2 g/dL (6.4-8.2); Sodium Level 134 mmol/L (136-145)
[2020-05-25] MEDS: INSULIN -REGULAR HUMAN 50 UNIT/0.5 ML ML SQ SCH ×4 (08:10→20:23)
[2020-05-25] MEDS: INSULIN 70/30 100 UNITS/ML SQ SCH ×2 (08:10→16:57)
[2020-05-25] MEDS: CEFTRIAXONE/SWI 1gm 1 GM/10 ML SYR IV SCH (08:11)
[2020-05-25] MEDS: NICOTINE 21 MG/PAT TD SCH (08:11)
[2020-05-25] MEDS: ENOXAPARIN 40 MG/0.4 ML SQ SCH (08:11)
[2020-05-25] MEDS: METHYLPREDNISOLONE 125 MG INJ IV SCH ×2 (08:14→20:22)
[2020-05-25] MEDS: FUROSEMIDE 20 MG/ 2ML VIAL IV SCH (08:14)
[2020-05-25] MEDS: ASPIRIN EC 81 MG TAB PO SCH (08:14)
[2020-05-25] MEDS: VITAMIN D 400 UNIT TAB PO SCH (08:14)
[2020-05-25] MEDS: levoFLOXacin 500 MG TAB PO SCH (08:14)
[2020-05-25] MEDS: SERTRALINE HCL 100 MG TAB PO SCH (08:15)
[2020-05-25] MEDS: HOME MED 1 EA UNK (Lurasidone Hcl [Latuda] 60 MG Tablet) PO SCH (08:15)
[2020-05-25] MEDS: SPIRONOLACTONE 25 MG TABLET PO SCH (08:15)
[2020-05-25] MEDS: BENZTROPINE 1 MG TAB PO SCH ×2 (08:16→20:23)
[2020-05-25] MEDS: DOCOSAHEXANOIC AC/EPA 1000 MG PO SCH (08:16)
--- NOTE | 2020-05-25 08:35 | RAD REPORT ---
EXAM DESCRIPTION: RAD - Chest Single View - 05/25/2020 5:34 am CLINICAL HISTORY: Pneumonia COMPARISON: May 24May 22 TECHNIQUE: AP portable chest image was obtained 05/25/2020 5:34 am . FINDINGS: Bilateral pneumonia changes are present worse on the left. There is been little if any imp rovement since the prior day study. Heart and vasculature are normal. No measurable pleural effusion and no pneumothorax. No acute bony abnormality seen. No acute aortic findings suspected. IMPRESSION: Bilateral pneumonia worse on the left. No measurable change from prior day imaging.
--- NOTE | 2020-05-25 12:34 | P.PN ---
Subjective Date of Service: 05/25/20 Primary Care Provider: LINDY Chief Complaint: Respiratory failure Subjective: Improving (down to 3L NC. breathing more comfortably, overall feels better today) Review of Systems 10-point ROS is otherwise unremarkable Physical Examination - Vital Signs Temperature: 97.9 F Blood Pressure: 132/74 Pulse: 88 Respirations: 21 Pulse Ox (%): 92 - Studies Microbiology Data (last 24 hrs): 05/22/20 16:15 Throat Culture & Sensitivity - Final NORMAL UPPER RESPIRATORY MELISSA GROWN. Assessment & Plan Physician Review Additional Text: Physical Exam General: alert, NAD, morbidly obese HEENT: Sclerae anicteric, normal conjunctiva Respiratory: Mild expiratory wheeze bilaterally, bilateral crackles at bases, diminished throughout L>R, on 3L NC Cardiovascular: Regular rate/rhythm, Normal S1 S2 Abd: Normal bowel sounds, No tenderness, soft, nondistended Ext: trace b/l lower extremity edema, no tenderness Neurological: Normal speech, normal affect Problem list Acute hypoxic respiratory failure secondary to bilateral bacterial pneumonia complicated with history of COPD and heavy tobacco abuse Diabetes mellitus type 2, non insulin dependent Hypertension Hyperlipidemia Schizoaffective disorder Polycythemia blood cultures obtained in ED, continue antibiotics, steroids, nebs. COVID-19 negative Cultures without any growth, a sputum culture: Mixed normal respiratory melissa Pulm consulted given extensive b/l pneumonia inflammatory markers significantly elevated, but improving patient subjectively feeling better oxygen weaned down to 3LNC Steroid induced hyperglycemia, insulin sliding scale, adjust long-acting as needed Hypertension, Hyperlipidemia ,Schizoaffective disorder, Polycythemia: Stable, continue home medications. Dispo: anticipate dc home in 24-48 days, will likely need home O2 given history of COPD and degree of pneumonia Time Spent Managing Pts Care (In Minutes): 35
--- NOTE | 2020-05-25 13:05 | P.PN ---
Subjective Date of Service: 05/25/20 Primary Care Provider: LINDY Chief Complaint: Respiratory failure Subjective: Improving (Patient is feeling better saturation is improving white count declining) Review of Systems Respiratory: Shortness of Breath Physical Examination - Vital Signs Temperature: 97.9 F Blood Pressure: 132/74 Pulse: 88 Respirations: 21 Pulse Ox (%): 92 - Physical Exam General: Alert, Oriented x3 Neck: Supple Respiratory: Clear to auscultation bilaterally - Studies Microbiology Data (last 24 hrs): 05/22/20 16:15 Throat Culture & Sensitivity - Final NORMAL UPPER RESPIRATORY MELISSA GROWN. Assessment & Plan - Problems (Diagnosis) (1) Pneumonia Current Visit: Yes Status: Acute Plan: patient is improving non nasal cannula oxygen as bilateral pneumonia of unknown etiology HIV test is pending possible discharge has a history of COPD can be discharged home on prednisone 20 mg twice a day for a week and then 10 mg twice a day he may qualify for home oxygen continue with levofloxacin vital signs stable chest x-ray also looks better room-air pulse ox is borderline Qualifiers: Pneumonia type: due to unspecified organism Laterality: bilateral
[2020-05-25] MEDS: ATORVASTATIN 20 MG TAB PO SCH (20:22)
[2020-05-26] MEDS: ALBUTEROL 2.5 MG/3 ML NEB SOL NEB SCH ×4 (02:00→19:20)
[2020-05-26] MEDS: IPRATROPIUM BROM 0.5MG/2.5ML NEB SCH ×4 (02:00→19:20)
[2020-05-26] MEDS: ACETAMINOPHEN 500 MG TAB PO PRN ×3 (02:16→22:17)
[2020-05-26 06:20] LABS: Basophils % 0.2 % (0-1.3); Hematocrit 44.9 % (39.6-49.0); Lymphocytes % 6.5 % (15.3-44.8); MPV 7.2 fL (7.6-11.3)
[2020-05-26 06:47] LABS: BUN Blood Urea Nitrogen 12 mg/dL (7-18); Bicarbonate 25 mmol/L (21-32); Glucose Level 272 mg/dL (74-106); Magnesium 2.2 mg/dL (1.8-2.4); Potassium 4.5 mmol/L (3.5-5.1); Sodium Level 134 mmol/L (136-145)
[2020-05-26] MEDS: INSULIN 70/30 100 UNITS/ML SQ SCH ×2 (08:16→16:56)
[2020-05-26] MEDS: INSULIN -REGULAR HUMAN 50 UNIT/0.5 ML ML SQ SCH ×4 (08:16→20:13)
[2020-05-26] MEDS: METHYLPREDNISOLONE 125 MG INJ IV SCH ×2 (08:17→20:13)
[2020-05-26] MEDS: ENOXAPARIN 40 MG/0.4 ML SQ SCH (08:17)
[2020-05-26] MEDS: SERTRALINE HCL 100 MG TAB PO SCH (08:19)
[2020-05-26] MEDS: FUROSEMIDE 20 MG/ 2ML VIAL IV SCH (08:19)
[2020-05-26] MEDS: BENZTROPINE 1 MG TAB PO SCH ×2 (08:20→20:13)
[2020-05-26] MEDS: VITAMIN D 400 UNIT TAB PO SCH (08:20)
[2020-05-26] MEDS: ASPIRIN EC 81 MG TAB PO SCH (08:20)
[2020-05-26] MEDS: DOCOSAHEXANOIC AC/EPA 1000 MG PO SCH (08:21)
[2020-05-26] MEDS: NICOTINE 21 MG/PAT TD SCH (08:21)
[2020-05-26] MEDS: HOME MED 1 EA UNK (Lurasidone Hcl [Latuda] 60 MG Tablet) PO SCH (08:21)
[2020-05-26] MEDS: levoFLOXacin 750 MG TAB PO SCH (08:21)
[2020-05-26] MEDS: SPIRONOLACTONE 25 MG TABLET PO SCH (08:26)
[2020-05-26 08:43] LABS: Blood Morphology Comment NOT SEEN (NOT SEEN)
[2020-05-26 08:44] LABS: Platelet Estimate INCR
[2020-05-26] MEDS ORDERED: PNEUMOCOCCAL VACCINE 0.5 ML IMVAC ONE (10:00)
--- NOTE | 2020-05-26 11:00 | P.PN ---
Subjective Date of Service: 05/26/20 Primary Care Provider: LINDY Chief Complaint: Respiratory failure Subjective: Improving (feels a little better this morning, did not sleep well, still short of breath/dyspneic, on 4 L nasal cannula with SpO2 ~90%. no more diarrhea after the one episode 2 days ago) Review of Systems 10-point ROS is otherwise unremarkable Physical Examination - Vital Signs Temperature: 97 F Blood Pressure: 142/88 Pulse: 88 Respirations: 20 Pulse Ox (%): 93 Assessment & Plan Physician Review Additional Text: Physical Exam General: alert, NAD, morbidly obese HEENT: Sclerae anicteric, normal conjunctiva Respiratory: Mild expiratory wheeze bilaterally, bilateral crackles at bases, diminished throughout L>R, on 4L NC Cardiovascular: Regular rate/rhythm, Normal S1 S2 Abd: Normal bowel sounds, No tenderness, soft, nondistended Ext: trace b/l lower extremity edema, no tenderness Problem list Acute hypoxic respiratory failure secondary to bilateral bacterial pneumonia and acute on chronic COPD Exacerbation Diabetes mellitus type 2, non insulin dependent acute diastolic CHF Hypertension Hyperlipidemia Schizoaffective disorder Polycythemia nicotine dependence Blood cultures obtained in ED, continue antibiotics, steroids, nebs. COVID-19 negative Cultures without any growth, sputum culture: Mixed normal respiratory monique Pulm consulted given extensive b/l pneumonia - switched to levaquin by pulm on 05/25 diuresing well with IV lasix, continue TTE (05/23): normal LVEF, +diastolic dysfunction inflammatory markers significantly elevated, but improving patient subjectively feeling better oxygen weaned down to 3LNC yesterday but back up to 4-5L Steroid induced hyperglycemia, insulin sliding scale, adjust long-acting as needed Hypertension, Hyperlipidemia ,Schizoaffective disorder, Polycythemia: Stable, continue home medications. Dispo: anticipate dc home in 24-48 days, will likely need home O2 given history of COPD and degree of pneumonia Time Spent Managing Pts Care (In Minutes): 35
--- NOTE | 2020-05-26 11:36 | P.PN ---
Subjective Date of Service: 05/27/20 Primary Care Provider: LINDY Chief Complaint: Respiratory failure Subjective: Improving (Patient is improving chest x-ray has improved still complains of some shortness of breath) Review of Systems General: Weakness Respiratory: Shortness of Breath Physical Examination - Vital Signs Temperature: 97 F Blood Pressure: 142/88 Pulse: 88 Respirations: 20 Pulse Ox (%): 93 - Physical Exam General: Alert, Oriented x3, Mild distress Respiratory: Clear to auscultation bilaterally, Diminished Cardiovascular: No edema, Normal S1 S2 Assessment & Plan - Problems (Diagnosis) (1) Pneumonia Current Visit: Yes Status: Acute Plan: Patient is improving he needs another x-ray PA and lateral to be done and the Department is probably rotated white count is declining pro calcitonin significantly elevated blood cultures are negative may qualify for home oxygen police to be setup with home oxygen continue with the steroids 20 mg p.o. b.i.d. for a week then 10 b.i.d. to follow up with me as an outpatient HIV test is pending Qualifiers: Pneumonia type: due to unspecified organism Laterality: bilateral
[2020-05-26] MEDS: ATORVASTATIN 20 MG TAB PO SCH (20:13)
[2020-05-27] MEDS: ALBUTEROL 2.5 MG/3 ML NEB SOL NEB SCH ×4 (01:43→19:28)
[2020-05-27] MEDS: IPRATROPIUM BROM 0.5MG/2.5ML NEB SCH ×4 (01:43→19:28)
[2020-05-27 06:15] LABS: Absolute Lymphocytes (CBC) 1.2 K/uL (0.7-4.9); Basophils % 0.3 % (0-1.3); Hematocrit 42.9 % (39.6-49.0); Lymphocytes % 7.8 % (15.3-44.8); RBC Red Blood Cell Count 5.29 M/uL (4.33-5.43)
[2020-05-27 06:35] LABS: ALT/SGPT 33 U/L (12-78); AST/SGOT 13 U/L (15-37); Albumin 2.6 g/dL (3.4-5.0); Alkaline Phosphatase 96 U/L (45-117); BUN Blood Urea Nitrogen 13 mg/dL (7-18); Bicarbonate 27 mmol/L (21-32); Bilirubin Total 0.3 mg/dL (0.2-1.0); Glucose Level 290 mg/dL (74-106); Magnesium 2.2 mg/dL (1.8-2.4); Potassium 4.2 mmol/L (3.5-5.1); Protein, Total 6.5 g/dL (6.4-8.2); Sodium Level 132 mmol/L (136-145)
[2020-05-27] MEDS: INSULIN -REGULAR HUMAN 50 UNIT/0.5 ML ML SQ SCH ×4 (08:18→20:38)
[2020-05-27] MEDS: ENOXAPARIN 40 MG/0.4 ML SQ SCH (08:18)
[2020-05-27] MEDS: INSULIN 70/30 100 UNITS/ML SQ SCH ×2 (08:18→16:47)
[2020-05-27] MEDS: METHYLPREDNISOLONE 125 MG INJ IV SCH ×2 (08:19→20:37)
[2020-05-27] MEDS: SERTRALINE HCL 100 MG TAB PO SCH (08:21)
[2020-05-27] MEDS: BENZTROPINE 1 MG TAB PO SCH ×2 (08:22→20:38)
[2020-05-27] MEDS: levoFLOXacin 750 MG TAB PO SCH (08:22)
[2020-05-27] MEDS: VITAMIN D 400 UNIT TAB PO SCH (08:22)
[2020-05-27] MEDS: ASPIRIN EC 81 MG TAB PO SCH (08:22)
[2020-05-27] MEDS: SPIRONOLACTONE 25 MG TABLET PO SCH (08:22)
[2020-05-27] MEDS: HOME MED 1 EA UNK (Lurasidone Hcl [Latuda] 60 MG Tablet) PO SCH (08:23)
[2020-05-27] MEDS: NICOTINE 21 MG/PAT TD SCH (08:23)
--- NOTE | 2020-05-27 09:29 | P.PN ---
Subjective Date of Service: 05/27/20 Primary Care Provider: LINDY Chief Complaint: Respiratory failure Subjective: No new changes (feels about same as yesterday, feels "sick" with SOB and body aches, weak. On 4 L NC +BM, urinating without issue) Review of Systems 10-point ROS is otherwise unremarkable Physical Examination - Vital Signs Temperature: 96.8 F Blood Pressure: 140/72 Pulse: 72 Respirations: 18 Pulse Ox (%): 91 Assessment & Plan Physician Review Additional Text: Physical Exam General: alert, NAD, morbidly obese HEENT: Sclerae anicteric, normal conjunctiva Respiratory: Mild expiratory wheeze bilaterally, diminished throughout, on 4L NC Cardiovascular: Regular rate/rhythm, Normal S1 S2 Abd: Normal bowel sounds, No tenderness, soft, nondistended Ext: trace b/l lower extremity edema to ankles, no tenderness Problem list Acute hypoxic respiratory failure secondary to bilateral bacterial pneumonia and acute on chronic COPD Exacerbation Diabetes mellitus type 2, non insulin dependent Acute diastolic CHF Hypertension Hyperlipidemia Schizoaffective disorder Polycythemia nicotine dependence Blood cultures obtained in ED - Cultures without any growth, sputum culture: Mixed normal respiratory monique continue antibiotics, steroids, nebs. COVID-19 negative Pulm consulted given extensive b/l pneumonia - switched pt to levaquin on 05/25 diuresed well with lasix, spironolactone TTE (05/23): normal LVEF, +diastolic dysfunction inflammatory markers were significantly elevated, but improving patient subjectively feeling better slowly oxygen stable at 4L since last night Steroid induced hyperglycemia, insulin sliding scale, adjust long-acting as needed Hypertension, Hyperlipidemia ,Schizoaffective disorder, Polycythemia: Stable, continue home medications. Dispo: anticipate dc home in ~24hr, needs home O2 given history of COPD and degree of pneumonia needs PT/OT eval Time Spent Managing Pts Care (In Minutes): 35
[2020-05-27] MEDS: DOCOSAHEXANOIC AC/EPA 1000 MG PO SCH (09:44)
--- NOTE | 2020-05-27 10:00 | RAD REPORT ---
EXAM DESCRIPTION: RAD - Chest Single View - 05/27/2020 6:38 am CLINICAL HISTORY: SOB, b/l pneumonia Chest pain. COMPARISON: Chest Single View dated 05/25/2020; Chest Single View dated 05/24/2020; Chest Single View da bright 05/22/2020 FINDINGS: Portable technique limits examination quality. Since 05/25/2020, mild increase bilateral pulmonary opacities is noted suggesting mild worsening in l dutch aeration. The heart is upper limit normal in size. No displaced fractures. IMPRESSION: Mild worsening in lung aeration is seen bilaterally since comparative study.
[2020-05-27] MEDS: ACETAMINOPHEN 500 MG TAB PO PRN ×2 (15:54→22:58)
[2020-05-27] MEDS: ATORVASTATIN 20 MG TAB PO SCH (20:38)
[2020-05-28] MEDS: IPRATROPIUM BROM 0.5MG/2.5ML NEB SCH ×4 (01:48→20:08)
[2020-05-28] MEDS: ALBUTEROL 2.5 MG/3 ML NEB SOL NEB SCH ×4 (01:48→20:08)
[2020-05-28 06:35] LABS: BUN Blood Urea Nitrogen 16 mg/dL (7-18); Bicarbonate 26 mmol/L (21-32); Glucose Level 272 mg/dL (74-106); Potassium 4.5 mmol/L (3.5-5.1); Sodium Level 131 mmol/L (136-145)
[2020-05-28 06:46] LABS: Absolute Lymphocytes (CBC) 1.6 K/uL (0.7-4.9); Basophils % 0.3 % (0-1.3); Hematocrit 44.1 % (39.6-49.0); Lymphocytes % 8.3 % (15.3-44.8); RBC Red Blood Cell Count 5.48 M/uL (4.33-5.43)
[2020-05-28] MEDS: INSULIN -REGULAR HUMAN 50 UNIT/0.5 ML ML SQ SCH ×5 (07:30→20:43)
--- NOTE | 2020-05-28 08:13 | RAD REPORT ---
EXAM DESCRIPTION: RAD - Chest Pa And Lat (2 Views) - 05/28/2020 7:00 am CLINICAL HISTORY: b/l pneumonia COMPARISON: Portable May 27, portable May 25 TECHNIQUE: Frontal and lateral views of the chest were obtained. FINDINGS: The lungs are better inflated than on the prior study. Bilateral edema or pneumonia patte rn has partially cleared. There is a small amount of remnant pneumonia is still present. Heart size a nd vasculature are mildly prominent. A mild component of failure or volume overload could be present. No pleural effusion or pneumothorax seen. No acute bony finding noted. No aortic abnormality. IMPRESSION: Partial clearing of bilateral infiltrate or edema pattern.
[2020-05-28] MEDS: levoFLOXacin 750 MG TAB PO SCH (08:14)
[2020-05-28] MEDS: NICOTINE 21 MG/PAT TD SCH (08:15)
[2020-05-28] MEDS: SPIRONOLACTONE 25 MG TABLET PO SCH (08:15)
[2020-05-28] MEDS: METHYLPREDNISOLONE 125 MG INJ IV SCH (08:15)
[2020-05-28] MEDS: ENOXAPARIN 40 MG/0.4 ML SQ SCH (08:15)
[2020-05-28] MEDS: VITAMIN D 400 UNIT TAB PO SCH (08:15)
[2020-05-28] MEDS: DOCOSAHEXANOIC AC/EPA 1000 MG PO SCH (08:15)
[2020-05-28] MEDS: SERTRALINE HCL 100 MG TAB PO SCH (08:15)
[2020-05-28] MEDS: ASPIRIN EC 81 MG TAB PO SCH (08:15)
[2020-05-28] MEDS: BENZTROPINE 1 MG TAB PO SCH ×2 (08:16→20:43)
[2020-05-28] MEDS: INSULIN 70/30 100 UNITS/ML SQ SCH ×2 (08:16→17:19)
[2020-05-28] MEDS: HOME MED 1 EA UNK (Lurasidone Hcl [Latuda] 60 MG Tablet) PO SCH (08:16)
--- NOTE | 2020-05-28 16:46 | P.PN ---
Subjective Date of Service: 05/28/20 Primary Care Provider: LINDY Chief Complaint: Respiratory failure Subjective: Improving (Doing well, states she is feeling a little bit better, breathing more comfortably, reports a slight sore throat over the last 2-3 days) Review of Systems 10-point ROS is otherwise unremarkable Physical Examination - Vital Signs Temperature: 97.3 F Blood Pressure: 169/90 Pulse: 91 Respirations: 20 Pulse Ox (%): 96 - Studies Microbiology Data (last 24 hrs): 05/22/20 16:00 Blood - Blood Aerobic Blood Culture - Final No growth in 5 days. 05/22/20 16:00 Blood - Blood Anaerobic Blood Culture - Final No growth in 5 days. 05/22/20 16:00 Blood - Blood Aerobic Blood Culture - Final No growth in 5 days. 05/22/20 16:00 Blood - Blood Anaerobic Blood Culture - Final No growth in 5 days. Assessment & Plan Physician Review Additional Text: Physical Exam General: alert, NAD, morbidly obese HEENT: Sclerae anicteric, normal conjunctiva Respiratory: Mild expiratory wheeze bilaterally, diminished throughout, on 4L NC Cardiovascular: Regular rate/rhythm, Normal S1 S2 Abd: Normal bowel sounds, No tenderness, soft, nondistended Ext: trace b/l lower extremity edema to ankles, no tenderness Problem list Acute hypoxic respiratory failure secondary to bilateral bacterial pneumonia and acute on chronic COPD Exacerbation Diabetes mellitus type 2, non insulin dependent Acute diastolic CHF Hypertension Hyperlipidemia Schizoaffective disorder Polycythemia nicotine dependence Blood cultures obtained in ED - Cultures without any growth, sputum culture: Mixed normal respiratory monique continue antibiotics, steroids, nebs. COVID-19 negative Pulm consulted given extensive b/l pneumonia - switched pt to levaquin on 05/25 diuresed well with lasix, spironolactone TTE (05/23): normal LVEF, +diastolic dysfunction inflammatory markers were significantly elevated, but improving patient subjectively feeling Oxygen stable Steroid induced hyperglycemia, insulin sliding scale, continue to adjust long- acting as needed Hypertension, Hyperlipidemia ,Schizoaffective disorder, Polycythemia: Stable, continue home medications. Dispo: Initially was planning to discharge home, however after discussing with sister, he is too sick to continue care at home at this time SW/CM consulted for SNF placement Time Spent Managing Pts Care (In Minutes): 35
[2020-05-28] MEDS: ATORVASTATIN 20 MG TAB PO SCH (20:43)
[2020-05-28] MEDS: predniSONE 20 MG TAB PO SCH (20:43)
[2020-05-28] MEDS: ACETAMINOPHEN 500 MG TAB PO PRN (23:54)
[2020-05-29] MEDS: ALBUTEROL 2.5 MG/3 ML NEB SOL NEB SCH ×4 (01:25→20:00)
[2020-05-29] MEDS: IPRATROPIUM BROM 0.5MG/2.5ML NEB SCH ×4 (01:30→20:00)
[2020-05-29 04:44] LABS: Absolute Lymphocytes (CBC) 1.5 K/uL (0.7-4.9); Basophils % 0.4 % (0-1.3); Hematocrit 46.4 % (39.6-49.0); MPV 6.7 fL (7.6-11.3)
[2020-05-29 05:00] LABS: BUN Blood Urea Nitrogen 19 mg/dL (7-18); Bicarbonate 32 mmol/L (21-32); C-Reactive Protein 5.03 mg/L (<3.00); Glucose Level 249 mg/dL (74-106); Potassium 4.9 mmol/L (3.5-5.1); Sodium Level 133 mmol/L (136-145)
[2020-05-29] MEDS: INSULIN -REGULAR HUMAN 50 UNIT/0.5 ML ML SQ SCH ×4 (07:58→20:43)
[2020-05-29] MEDS: INSULIN 70/30 100 UNITS/ML SQ SCH ×2 (07:59→16:13)
[2020-05-29] MEDS: ENOXAPARIN 40 MG/0.4 ML SQ SCH (07:59)
[2020-05-29] MEDS: levoFLOXacin 750 MG TAB PO SCH (08:00)
[2020-05-29] MEDS: ASPIRIN EC 81 MG TAB PO SCH (08:00)
[2020-05-29] MEDS: CEPACOL LOZENGES PO PRN ×3 (08:00→20:43)
[2020-05-29] MEDS: DOCOSAHEXANOIC AC/EPA 1000 MG PO SCH (08:01)
[2020-05-29] MEDS: SPIRONOLACTONE 25 MG TABLET PO SCH (08:01)
[2020-05-29] MEDS: predniSONE 20 MG TAB PO SCH ×2 (08:01→20:43)
[2020-05-29] MEDS: NICOTINE 21 MG/PAT TD SCH (08:01)
[2020-05-29] MEDS: VITAMIN D 400 UNIT TAB PO SCH (08:02)
[2020-05-29] MEDS: HOME MED 1 EA UNK (Lurasidone Hcl [Latuda] 60 MG Tablet) PO SCH (08:02)
[2020-05-29] MEDS: SERTRALINE HCL 100 MG TAB PO SCH (08:02)
[2020-05-29] MEDS: BENZTROPINE 1 MG TAB PO SCH ×2 (08:02→20:43)
--- NOTE | 2020-05-29 12:58 | P.PN ---
Subjective Date of Service: 05/29/20 Primary Care Provider: LINDY Chief Complaint: Respiratory failure Patient has no new complaint. He is tolerating oxygen by nasal canula. Physical Examination - Vital Signs Temperature: 97.0 F Blood Pressure: 145/85 Pulse: 84 Respirations: 18 Pulse Ox (%): 97 - Physical Exam General: Alert, In no apparent distress, Oriented x3 HEENT: Mucous membr. moist/pink Neck: Supple, JVD not distended Respiratory: Clear to auscultation bilaterally, Diminished Cardiovascular: No edema, Regular rate/rhythm, Normal S1 S2 Gastrointestinal: Soft and benign, Non-distended, No tenderness Musculoskeletal: No swelling Integumentary: No rashes Neurological: Normal strength at 5/5 x4 extr, Cranial nerves 3-12 intact Assessment And Plan Physician Review Additional Text: Physical Exam General: alert, NAD, morbidly obese HEENT: Sclerae anicteric, normal conjunctiva Respiratory: Mild expiratory wheeze bilaterally, diminished throughout, on 4L NC Cardiovascular: Regular rate/rhythm, Normal S1 S2 Abd: Normal bowel sounds, No tenderness, soft, nondistended Ext: trace b/l lower extremity edema to ankles, no tenderness Problem list Acute hypoxic respiratory failure secondary to bilateral bacterial pneumonia and acute on chronic COPD Exacerbation Diabetes mellitus type 2, non insulin dependent Acute diastolic CHF Hypertension Hyperlipidemia Schizoaffective disorder Polycythemia nicotine dependence Blood cultures obtained in ED - Cultures without any growth, sputum culture: Mixed normal respiratory monique continue antibiotics, steroids, nebs. Pulm consulted given extensive b/l pneumonia - switched pt to levaquin on 05/25. Continue oral Levaquin Continue lasix and spironolactone for diastolic CHF. TTE (05/23): normal LVEF, +diastolic dysfunction inflammatory markers were significantly elevated, but improving patient subjectively feeling Oxygen stable Steroid induced hyperglycemia, insulin sliding scale, titrate long-acting as needed Hypertension, Hyperlipidemia ,Schizoaffective disorder, Polycythemia: Stable, continue home medications. Dispo: Skilled rehab. SW/CM consulted for SNF placement
[2020-05-29] MEDS: ACETAMINOPHEN 500 MG TAB PO PRN (18:14)
[2020-05-29] MEDS: ATORVASTATIN 20 MG TAB PO SCH (20:42)
[2020-05-30] MEDS: IPRATROPIUM BROM 0.5MG/2.5ML NEB SCH ×3 (01:41→14:27)
[2020-05-30] MEDS: ALBUTEROL 2.5 MG/3 ML NEB SOL NEB SCH ×3 (01:41→14:27)
[2020-05-30 06:04] LABS: Absolute Lymphocytes (CBC) 1.3 K/uL (0.7-4.9); Basophils % 0.3 % (0-1.3); Hematocrit 45.8 % (39.6-49.0); Lymphocytes % 7.1 % (15.3-44.8); MPV 6.7 fL (7.6-11.3); RBC Red Blood Cell Count 5.67 M/uL (4.33-5.43)
[2020-05-30 06:14] LABS: BUN Blood Urea Nitrogen 18 mg/dL (7-18); Bicarbonate 31 mmol/L (21-32); Glucose Level 287 mg/dL (74-106); Potassium 4.6 mmol/L (3.5-5.1); Sodium Level 133 mmol/L (136-145)
[2020-05-30] MEDS: ENOXAPARIN 40 MG/0.4 ML SQ SCH (08:45)
[2020-05-30] MEDS: NICOTINE 21 MG/PAT TD SCH (08:45)
[2020-05-30] MEDS: SPIRONOLACTONE 25 MG TABLET PO SCH (08:47)
[2020-05-30] MEDS: levoFLOXacin 750 MG TAB PO SCH (08:47)
[2020-05-30] MEDS: SERTRALINE HCL 100 MG TAB PO SCH (08:47)
[2020-05-30] MEDS: VITAMIN D 400 UNIT TAB PO SCH (08:48)
[2020-05-30] MEDS: predniSONE 20 MG TAB PO SCH ×2 (08:48→20:19)
[2020-05-30] MEDS: INSULIN 70/30 100 UNITS/ML SQ SCH ×2 (08:48→17:31)
[2020-05-30] MEDS: INSULIN -REGULAR HUMAN 50 UNIT/0.5 ML ML SQ SCH ×4 (08:48→20:20)
[2020-05-30] MEDS: BENZTROPINE 1 MG TAB PO SCH ×2 (08:48→20:19)
[2020-05-30] MEDS: ASPIRIN EC 81 MG TAB PO SCH (08:48)
[2020-05-30] MEDS: HOME MED 1 EA UNK (Lurasidone Hcl [Latuda] 60 MG Tablet) PO SCH (08:51)
[2020-05-30 08:53] LABS: Blood Morphology Comment NOT SEEN (NOT SEEN); Platelet Estimate ADEQ; White Blood Cell Scan OK (OK)
[2020-05-30] MEDS: DOCOSAHEXANOIC AC/EPA 1000 MG PO SCH (10:52)
[2020-05-30] MEDS: CEPACOL LOZENGES PO PRN (10:52)
[2020-05-30 11:47] LABS: HIV AG/AB 4TH GEN Non-reactive (Non-reactive)
--- NOTE | 2020-05-30 17:56 | P.DS ---
Admission Date: 05/22/20 Discharge Date: 05/30/20 Primary Care Provider: LINDY Disposition: DC HOME/HOME HEALTH CARE Discharge Condition: FAIR Reason for Admission: Respiratory failure Consultations: Pulmonary consult-Dr. Pollack. - Problems (1) Pneumonia Current Visit: Yes Status: Acute Qualifiers: Pneumonia type: due to unspecified organism Laterality: bilateral (2) Acute respiratory failure with hypoxia Current Visit: Yes Status: Acute (3) Sepsis Current Visit: Yes Status: Acute (4) COPD exacerbation Current Visit: Yes Status: Acute (5) Polycythemia Current Visit: Yes Status: Acute (6) DM type 2 (diabetes mellitus, type 2) Current Visit: Yes Status: Acute (7) Hyperglycemia Current Visit: Yes Status: Acute (8) Acute diastolic heart failure Current Visit: Yes Status: Acute Brief History of Present Illness: 60 year old gentleman with a history of polycythemia, COPD and tobacco use was brought to the emergency department with progressive shortness of breath. CT chest done in the emergency department demonstrated bilateral pneumonia. Patient was septic elevated WBC count up to 22,000, tachypnea and tachycardia. No evidence of pulmonary embolism on CTA thorax. Patient was started on antibiotic therapy, placed on BiPAP and admitted for further management. Hospital Course: Blood cultures obtained in ED - Cultures without any growth, sputum culture: Mixed normal respiratory monique. Patient treated with IV Rocephin and Zithromax and then transition to oral Levaquin. He was also treated with steroids, nebs for COPD exacerbation Pulm consulted given extensive b/l pneumonia. Patient discharged were oral Levaquin to complete 10 days of treatment. He was also treated with lasix and spironolactone for acute diastolic CHF. TTE (05/23): normal LVEF, +diastolic dysfunction inflammatory markers were significantly elevated, but improved Patient initially requiring oxygen. This was weaned off. He tolerated room air with ambulation with good oxygen saturation. Patient had steroid induced hyperglycemia which was managed with insulin sliding scale, Novolin 70/30. His hemoglobin A1c was 9.5 indicating diabetes mellitus. Patient is discharged with Novolin 70/30 to control his blood sugar. Vital Signs/Physical Exam: Temp Pulse Resp BP Pulse Ox 97 F 88 20 133/58 L 92 05/30/20 12:00 05/30/20 12:00 05/30/20 12:00 05/30/20 12:00 05/30/20 12:00 General: Alert, In no apparent distress, Oriented x3 HEENT: Mucous membr. moist/pink Neck: Supple, JVD not distended Respiratory: Clear to auscultation bilaterally, Normal air movement Cardiovascular: Regular rate/rhythm, Normal S1 S2, Edema (Trace bilateral lower extremity edema.) Gastrointestinal: Normal bowel sounds, Soft and benign, Non-distended, No tenderness Musculoskeletal: No swelling Neurological: Normal speech, Normal strength at 5/5 x4 extr, Cranial nerves 3-12 intact Laboratory Data at Discharge: WBC 18.40 K/uL (4.3-10.9) H 05/30/20 05:41 Hgb 15.7 g/dL (13.6-17.9) 05/30/20 05:41 Hct 45.8 % (39.6-49.0) 05/30/20 05:41 Plt Count 458 K/uL (152-406) H 05/30/20 05:41 PT 15.4 SECONDS (9.5-12.5) H 05/22/20 16:15 INR 1.34 05/22/20 16:15 Sodium 133 mmol/L (136-145) L 05/30/20 05:41 Potassium 4.6 mmol/L (3.5-5.1) 05/30/20 05:41 BUN 18 mg/dL (7-18) 05/30/20 05:41 Creatinine 0.74 mg/dL (0.55-1.3) 05/30/20 05:41 Glucose 287 mg/dL (74-106) H 05/30/20 05:41 Magnesium 2.2 mg/dL (1.8-2.4) 05/27/20 05:36 Total Bilirubin 0.3 mg/dL (0.2-1.0) 05/27/20 05:36 AST 13 U/L (15-37) L 05/27/20 05:36 ALT 33 U/L (12-78) 05/27/20 05:36 Alkaline Phosphatase 96 U/L (45-117) 05/27/20 05:36 Triglycerides 95 mg/dL (<150) 05/23/20 05:40 Cholesterol 122 mg/dL (<200) 05/23/20 05:40 HDL Cholesterol 30 mg/dL (40-60) L 05/23/20 05:40 Cholesterol/HDL Ratio 4.07 05/23/20 05:40 Home Medications: Aspirin [Adult Low Dose Aspirin EC] 81 mg PO DAILY 05/23/20 Atorvastatin Calcium 20 mg PO BEDTIME 05/23/20 Benztropine Mesylate [Cogentin*] 1 mg PO BID 05/23/20 Cholecalciferol (Vitamin D3) [Vitamin D3] 10 mcg PO DAILY 05/23/20 Cinnamon Bark [Cinnamon] 1 cap PO DAILY 05/23/20 Docosahexanoic AC/Epa [Fish Oil 1,000 MG*] 1 cap PO DAILY 05/23/20 Docusate Sodium 100 mg PO DAILY PRN 05/23/20 Haloperidol Decanoate [Haldol Decanoate 50] 50 mg IM Q30D 05/23/20 Lurasidone HCl [Latuda] 60 mg PO DAILY 05/23/20 Psyllium [Metamucil (Hydrocil)*] 5 ml PO DAILY PRN 05/23/20 Sertraline HCl 200 mg PO DAILY 05/23/20 Albuterol Neb [Proventil 0.083% Neb Soln] 2.5 mg NEB [id number] #120 amp 05/30/20 Alcohol Antiseptic Pads [Alcohol Prep Pads] 1 each TP TID #100 med..pad 05/30/20 Benzocaine/Menthol [Cepacol Sore Throat Lozenge] 1 each MM Q6H PRN #30 lozenge 05/30/20 Blood Sugar Diagnostic [Glucose Test Strip] 1 each TID #100 strip 05/30/20 Blood-Glucose Meter [Contour] 1 each TID #1 kit 05/30/20 Insulin 70/30 NPH/Reg Human [Novolin 70/30*] 20 unit SQ BIDAC #10 ml 05/30/20 Ipratropium Neb [Atrovent*] 0.5 mg NEB [id number] #120 amp 05/30/20 Lancets [Lancets Ultra Thin] 1 each TID #100 each 05/30/20 Nebulizer [Aeroneb Go Nebulizer] 1 each MC Q6H #1 each 05/30/20 Spironolactone [Aldactone*] 25 mg PO DAILY #30 tab 05/30/20 Syring-Needl,Disp,Insul,0.3 ml [Insulin Syringe] 1 each MC TID #100 disp.syrin 05/30/20 levoFLOXacin [Levaquin*] 750 mg PO DAILY #5 tab 05/30/20 predniSONE [Prednisone*] 20 mg PO BID #10 tab 05/30/20 New Medications: Ipratropium Neb [Atrovent*] 0.5 mg NEB [id number] #120 amp Albuterol Neb [Proventil 0.083% Neb Soln] 2.5 mg NEB [id number] #120 amp Nebulizer [Aeroneb Go Nebulizer] 1 each MC Q6H #1 each Alcohol Antiseptic Pads [Alcohol Prep Pads] 1 each TP TID #100 med..pad Spironolactone [Aldactone*] 25 mg PO DAILY #30 tab Benzocaine/Menthol [Cepacol Sore Throat Lozenge] 1 each MM Q6H PRN #30 lozenge PRN Reason: Sore Throat Blood-Glucose Meter [Contour] 1 each MC TID #1 kit Blood Sugar Diagnostic [Glucose Test Strip] 1 each MC TID #100 strip Syring-Needl,Disp,Insul,0.3 ml [Insulin Syringe] 1 each MC TID #100 disp.syrin Lancets [Lancets Ultra Thin] 1 each MC TID #100 each levoFLOXacin [Levaquin*] 750 mg PO DAILY #5 tab Insulin 70/30 NPH/Reg Human [Novolin 70/30*] 20 unit SQ BIDAC #10 ml predniSONE [Prednisone*] 20 mg PO BID #10 tab Diet: ADA Activity: Ad marquise Followup: Subhash Pollack MD [ACTIVE - CAN ADMIT] - ALFREDO FUENTES [Primary Care Provider] - 1-2 Weeks Time spent managing pt's care (in minutes): 40
[2020-05-30] MEDS: ATORVASTATIN 20 MG TAB PO SCH (20:19)
[2020-05-30 21:29] VITALS: BP 137/81; TEMP 97.7
[2020-05-30 21:38] VITALS: O2SAT 96
== END 2020-05-30 20:30 | disposition home health service (06) | DRG 871 ==
LOC: ER 15:37 → ERHOLD 19:48 → 2ND 20:40
PROVIDERS: ADMIT Hospitalist; ATTEND Internal Medicine
PROC: 5A09557 Assistance with Respiratory Ventilation, Greater than 96 Consecutive Hours, Continuous Positive Airway Pressure (ICD-10-PCS; principal; 2020-05-22)
DX: A41.9 Sepsis, unspecified organism (principal); J15.9 Unspecified bacterial pneumonia; J96.01 Acute respiratory failure with hypoxia; I50.31 Acute diastolic (congestive) heart failure; Z68.42 Body mass index [BMI] 45.0-49.9, adult; J44.0 Chronic obstructive pulmonary disease with (acute) lower respiratory infection; J44.1 Chronic obstructive pulmonary disease with (acute) exacerbation; I11.0 Hypertensive heart disease with heart failure; E66.01 Morbid (severe) obesity due to excess calories; F17.210 Nicotine dependence, cigarettes, uncomplicated; D64.9 Anemia, unspecified; E78.5 Hyperlipidemia, unspecified; D75.1 Secondary polycythemia; F25.9 Schizoaffective disorder, unspecified; E09.65 Drug or chemical induced diabetes mellitus with hyperglycemia; T38.0X5A Adverse effect of glucocorticoids and synthetic analogues, initial encounter; Z91.013 Allergy to seafood; Z88.8 Allergy status to other drugs, medicaments and biological substances; Z91.09 Other allergy status, other than to drugs and biological substances; Z60.2 Problems related to living alone; Z91.018 Allergy to other foods; Z85.828 Personal history of other malignant neoplasm of skin; Z79.82 Long term (current) use of aspirin; Z79.899 Other long term (current) drug therapy; Z79.4 Long term (current) use of insulin; Z79.52 Long term (current) use of systemic steroids; Z20.822 Contact with and (suspected) exposure to COVID-19
CPT/HCPCS: 0240U; 36415; 71045; 71046; 71275; 80048; 80053; 80061; 80076; 81003; 82728; 82805; 82947; 83036; 83605; 83735; 83880; 84145; 84439; 84443; 84484; 85025; 85379; 85610; 86140; 87040; 87070; 87081; 87389; 93005; 93306; 94010; 94640; 94660; 94760; 94762; 96361; 96374; 96375; 97110; 97112; 97116; 97161; 99285; J0456; J0696; J1630; J1650; J1815; J1940; J2930; J7030; J7040; J7050; J7512; Q9967

== ENCOUNTER 2021-06-12 09:54 | Emergency (ER) | payer OTHER ==
--- NOTE | 2021-06-12 10:17 | RAD REPORT ---
EXAM DESCRIPTION: CT - Ct Stroke Brain Wo Cont - 06/12/2021 10:10 am CLINICAL HISTORY: Neuro deficit, acute, stroke suspected COMPARISON: No comparisons TECHNIQUE: All CT scans are performed using dose optimization technique as appropriate and may inclu de automated exposure control or mA/KV adjustment according to patient size. FINDINGS: No intracranial hemorrhage, hydrocephalus or extra-axial fluid collection.No areas of brai n edema or evidence of midline shift. Trace mastoid fluid. The calvarium is intact. Mucous retention cyst in the right maxillary sinus. IMPRESSION: No acute intracranial abnormality. COMMUNICATION The critical information above was conveyed to Dr. Cruz On 06/12/21 at 1013 by me.
--- NOTE | 2021-06-12 10:27 | RAD REPORT ---
EXAM DESCRIPTION: CT - Neck Angio - 06/12/2021 10:15 am CLINICAL HISTORY: Neuro deficit, acute, stroke suspected COMPARISON: Chest For Pe Angio dated 05/22/2020 TECHNIQUE: CT angiography of the neck vessels was performed with MIPs. All CT scans are performed using dose optimization technique as appropriate and may include automated exposure control or mA/KV adjustment according to patient size. FINDINGS: A left aortic arch is identified with normal three vessel configuration of the great vesse ls. No significant flow abnormality is seen of the common carotid bilaterally. No significant stenosis is identified involving the cervical segments of both internal carotid arteri es. Suboptimal opacification of the vertebral arteries. They are grossly patent. The left vertebral arter y is dominant. Partially calcified enlarged left cervical chain lymph nodes including a left level 2 lymph node aleksandr uring 2.7 cm. Left thyroid lesion also identified with calcifications measuring approximately 2.6 cm. IMPRESSION: No significant flow abnormality of the neck vessels is identified. Left cervical chain lymphadenopathy and left thyroid mass concerning for metastatic thyroid cancer. T he left cervical chain lymph nodes would be amenable to percutaneous biopsy for confirmation.
--- NOTE | 2021-06-12 10:31 | RAD REPORT ---
EXAM DESCRIPTION: CT - Head angio - 06/12/2021 10:15 am CLINICAL HISTORY: Neuro deficit, acute, stroke suspected COMPARISON: Ct Stroke Brain Wo Cont dated 06/12/2021 TECHNIQUE: CT angiography of the head was performed with MIPs. All CT scans are performed using dose optimization technique as appropriate and may include automated exposure control or mA/KV adjustment according to patient size. FINDINGS: Anterior circulation: No aneurysm or large vessel occlusion. No hemodynamically significant stenosis. No arteriovenous malf ormation identified. Posterior circulation: No aneurysm or large vessel occlusion. No hemodynamically significant stenosis. No arteriovenous malf ormation identified. 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 Mucous retention cyst in the right maxillary sinus. IMPRESSION: No significant flow abnormality is detected.
[2021-06-12 10:34] LABS: Absolute Lymphocytes (CBC) 1.7 K/uL (0.7-4.9); Hematocrit 48.5 % (39.6-49.0); Lymphocytes % 20.2 % (15.3-44.8); MPV 6.7 fL (7.6-11.3); RBC Red Blood Cell Count 5.77 M/uL (4.33-5.43)
[2021-06-12] MEDS ORDERED: NA CHLORIDE 0.9% 1,000 ML ONE (10:35)
[2021-06-12] MEDS ORDERED: FOLIC ACID 5 MG/ML VIAL ONE (10:36)
[2021-06-12 10:37] LABS: Protime INR 0.99
[2021-06-12 10:47] LABS: ALT/SGPT 15 U/L (12-78); AST/SGOT 8 U/L (15-37); Albumin 3.9 g/dL (3.4-5.0); Alkaline Phosphatase 81 U/L (45-117); BUN Blood Urea Nitrogen 9 mg/dL (7-18); Bicarbonate 26 mmol/L (21-32); Bilirubin Direct 0.1 mg/dL (0-0.2); Bilirubin Total 0.3 mg/dL (0.2-1.0); Glucose Level 92 mg/dL (74-106); Magnesium 2.2 mg/dL (1.8-2.4); NT PRO-BNP 64 pg/mL (<125); Potassium 4.4 mmol/L (3.5-5.1); Protein, Total 7.6 g/dL (6.4-8.2); Sodium Level 138 mmol/L (136-145); Troponin High Sensitivity 6.1 pg/mL (<58.9)
--- NOTE | 2021-06-12 11:08 | EDPHYS ---
Physician Documentation [facility] Name: Say Olivera Age: 61 yrs Sex: Male : 1960 Arrival Date: 06/12/2021 Time: 09:56 Bed 7 Private MD: ED Physician Anirudh Cruz HPI: 06/12 11:51 This 61 yrs old Male presents to ER via Ambulatory with complaints of Slurred tammy Speech, Trouble Walking, Numbness, Headache. 11:51 The patient's problem is reported as dysphasia, slurred speech, weakness, that is tammy generalized. Onset: The symptoms/episode began/occurred 2 week(s) ago. Duration: The episodes are intermittent. Context: the episode(s) was witnessed, by family. The symptoms are alleviated by nothing. The symptoms are aggravated by nothing. slurred speech, ataxia, heavy tobacco abuse. Associated signs and symptoms: Pertinent positives: gait abnormality, lightheadedness. Severity of symptoms: At their worst the symptoms were moderate in the emergency department the symptoms are unchanged. Patient's baseline: Neuro: alert and fully oriented, Motor: no deficits, Ambulation: unable to walk, falling. Historical: - Allergies: 10:20 shrimp/shellfish; vg1 10:20 thorazine; vg1 10:20 yellow dye #5; vg1 - Home Meds: 10:20 amlodipine oral [Active]; atorvastatin oral [Active]; Bupropion Oral [Active]; vg1 cholecalciferol (vitamin D3) oral [Active]; Fish Oil oral [Active]; losartan oral [Active]; lurasidone oral [Active]; metformin Oral [Active]; sertraline oral [Active]; lurasidone oral [Active]; - PMHx: 10:20 COPD; Diabetes - IDDM; High Cholesterol; Hypertension; polycythemia vera; vg1 schizoaffective; - Immunization history:: Adult Immunizations up to date. - Social history:: Smoking status: Patient reports the use of cigarette tobacco products, unknown amount. ROS: 11:54 Constitutional: Negative for fever, chills, and weight loss, Eyes: Negative for injury, tammy pain, redness, and discharge, ENT: Negative for injury, pain, and discharge, Neck: Negative for injury, pain, and swelling, Cardiovascular: Negative for chest pain, palpitations, and edema, Respiratory: Negative for shortness of breath, cough, wheezing, and pleuritic chest pain, Abdomen/GI: Negative for abdominal pain, nausea, vomiting, diarrhea, and constipation, Back: Negative for injury and pain, : Negative for injury, bleeding, discharge, and swelling, MS/Extremity: Negative for injury and deformity, Skin: Negative for injury, rash, and discoloration, Psych: Negative for depression, anxiety, suicide ideation, homicidal ideation, and hallucinations, Allergy/Immunology: Negative for hives, rash, and allergies, Endocrine: Negative for neck swelling, polydipsia, polyuria, polyphagia, and marked weight changes, Hematologic/Lymphatic: Negative for swollen nodes, abnormal bleeding, and unusual bruising. 11:54 Neuro: Positive for gait disturbance, speech changes, weakness. Exam: 11:54 Constitutional: This is a well developed, well nourished patient who is awake, alert, tammy and in no acute distress. Head/Face: Normocephalic, atraumatic. Eyes: Pupils equal round and reactive to light, extra-ocular motions intact. Lids and lashes normal. Conjunctiva and sclera are non-icteric and not injected. Cornea within normal limits. Periorbital areas with no swelling, redness, or edema. ENT: Nares patent. No nasal discharge, no septal abnormalities noted. Tympanic membranes are normal and external auditory canals are clear. Oropharynx with no redness, swelling, or masses, exudates, or evidence of obstruction, uvula midline. Mucous membranes moist. Neck: Trachea midline, no thyromegaly or masses palpated, and no cervical lymphadenopathy. Supple, full range of motion without nuchal rigidity, or vertebral point tenderness. No Meningismus. Chest/axilla: Normal chest wall appearance and motion. Nontender with no deformity. No lesions are appreciated. Cardiovascular: Regular rate and rhythm with a normal S1 and S2. No gallops, murmurs, or rubs. Normal PMI, no JVD. No pulse deficits. Respiratory: Lungs have equal breath sounds bilaterally, clear to auscultation and percussion. No rales, rhonchi or wheezes noted. No increased work of breathing, no retractions or nasal flaring. Abdomen/GI: Soft, non-tender, with normal bowel sounds. No distension or tympany. No guarding or rebound. No evidence of tenderness throughout. Back: No spinal tenderness. No costovertebral tenderness. Full range of motion. Male : Normal genitalia with no discharge or lesions. Skin: Warm, dry with normal turgor. Normal color with no rashes, no lesions, and no evidence of cellulitis. MS/ Extremity: Pulses equal, no cyanosis. Neurovascular intact. Full, normal range of motion. Psych: Awake, alert, with orientation to person, place and time. Behavior, mood, and affect are within normal limits. 11:54 Neuro: Orientation: is normal, appropriate for stated age, Mentation: is normal, appropriate for stated age, Memory: appropriate for stated age, Cranial nerves: grossly normal, is grossly normal based on the patient's age, no acute changes, Cerebellar function: unable to test, Motor: moves all fours, strength is normal, strength is 5/5 in all extremities, Sensation: no obvious gross deficits, appropriate no acute changes, Gait: not tested. seizure activity, is not displayed by the patient. 11:56 Radiologist reports: nad [facility] Vital Signs: 10:35 BP 155 / 95; Pulse 90; Resp 20; Temp 97.7; Pulse Ox 93% ; zm 11:30 BP 129 / 90; Pulse 90; Resp 16; Pulse Ox 96% ; bp 12:00 BP 153 / 82; Pulse 85; Resp 14; Pulse Ox 95% ; bp 13:04 BP 137 / 88; Pulse 86; Resp 18; Pulse Ox 95% ; bp 14:00 BP 148 / 81; Pulse 85; Resp 9; Pulse Ox 96% ; bp 15:00 BP 146 / 85; Pulse 82; Resp 12; Pulse Ox 95% ; bp NIH Stroke Scale Scores: 10:00 NIHSS Score: 1 bp 11:54 NIHSS Score: 2 tammy MDM: 10:00 Patient medically screened. [facility] 11:56 Differential diagnosis: CVA, TIA. Data reviewed: vital signs, nurses notes, lab test [facility] result(s), EKG, radiologic studies, CT scan, plain films. 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 Test interpretation: by ED physician or midlevel provider: ECG, plain radiologic studies. Counseling: I had a detailed discussion with the patient and/or guardian regarding: the historical points, exam findings, and any diagnostic results supporting the discharge/admit diagnosis, lab results, radiology results, the need to transfer to another facility, for higher level of care, [facility] does not immediately have the required specialist. 06/12 10:03 Order name: Basic Metabolic Panel; Complete Time: 11:03 [facility] 06/12 10:03 Order name: CBC with Diff; Complete Time: 11:06/12 10:03 Order name: LFT's; Complete Time: 11: [facility] 06/12 10:03 Order name: Magnesium; Complete Time: 11: [facility] 06/12 10:03 Order name: NT PRO-BNP; Complete Time: 11: [facility] 06/12 10:03 Order name: PT-INR; Complete Time: 11: [facility] 06/12 10:03 Order name: Troponin HS; Complete Time: 11: [facility] 06/12 10:03 Order name: XRAY Chest (1 view); Complete Time: 11:58 [facility] 06/12 10:03 Order name: CT Stroke Brain w/o Contrast; Complete Time: 11: [facility] 06/12 10:03 Order name: SARS-COV-2 RT PCR (Document "Date of Onset" if Symptomatic); Complete Time: [facility] 11:58 06/12 10:03 Order name: CT Head Angio; Complete Time: 11: [facility] 06/12 10:03 Order name: CT Neck Angio; Complete Time: 11: tammy 06/12 11:48 Order name: Urine Dipstick-Ancillary; Complete Time: 11:58 [facility] 06/12 10:03 Order name: EKG; Complete Time: 10:04 [facility] 06/12 10:03 Order name: Cardiac monitoring; Complete Time: 10:18 [facility] 06/12 10:03 Order name: EKG - Nurse/Tech; Complete Time: 10:35 [facility] 06/12 10:03 Order name: IV Saline Lock; Complete Time: 10: [facility] 06/12 10:03 Order name: Labs collected and sent; Complete Time: 10: [facility] 06/12 10:03 Order name: O2 Per Protocol; Complete Time: 10:06/12 10:03 Order name: O2 Sat Monitoring; Complete Time: 10:06/12 10:03 Order name: Urine Dipstick-Ancillary (obtain specimen); Complete Time: 11:53 tammy Administered Medications: 10:20 Drug: NS 0.9% 1000 ml Route: IV; Rate: 1 bolus; Site: right antecubital; bp 11:54 Follow up: IV Status: Completed infusion; IV Intake: 1000ml bp 10:20 Drug: foLIC Acid 1 mg Route: IVPB; Site: right antecubital; bp 12:57 Follow up: IV Status: Completed infusion; IV Intake: 100ml bp 11:20 Drug: Aspirin Chewable Tablet 324 mg Route: PO; bp 11:53 Follow up: Response: No adverse reaction bp 11:20 Drug: PlaVIX (clopidogrel) 75 mg Route: PO; bp 11:53 Follow up: Response: No adverse reaction bp 11:20 Drug: Pepcid (famotidine) 20 mg Route: IVP; Site: right antecubital; bp 11:53 Follow up: Response: No adverse reaction bp 12:00 Drug: Nicoderm CQ Patch 21 mg/24 hr 1 patches Route: Transdermal; Site: affected area; bp Disposition Summary: 06/12/21 11:07 Transfer Ordered Transfer Location: [facility] tammy Reason: Higher level of care tammy Condition: Fair tammy Problem: new tammy Symptoms: have improved tammy Accepting Physician: tto med/neuro(06/12/21 15:07) bp Diagnosis - Cerebral infarction, unspecified tammy - Ataxia, unspecified tammy - Aphasia following cerebral infarction tammy - Tobacco abuse counseling tammy - Tobacco use tammy - Type 1 diabetes mellitus with hyperglycemia tammy - COPD/ Chronic obstructive pulmonary disease, unspecified tammy - Atelectasis tammy Forms: - Medication Reconciliation Form tammy - SBAR form tammy NIH Stroke Scale - NIH Stroke Score Date: 06/12/2021 Time: 10:00 Total Score = 1 1a. Level of Consciousness (LOC) - 0(Alert) 1b. Level of Consciousness (LOC) (Month \\T\\ Age) - 0(Both) 1c. LOC Commands (Open \\T\\ Closes Eyes/Registration Rep) - 0(Both) 2. Best Gaze (Lateral Gaze Paresis) - 0(Normal) 3. Visual Field Loss - 0(No visual loss) 4. Facial Palsy - 0(Normal) 5a. Left Arm: Motor (10-second hold) - 0(No drift) 5b. Right Arm: Motor (10-second hold) - 0(No drift) 6a. Left Leg: Motor (5-second hold - always test supine) - 0(No drift) 6b. Right Leg: Motor (5-second hold - always test supine) - 0(No drift) 7. Limb Ataxia (finger/nose \\T\\ heel/lozano - test with eyes open) - 0(Absent) 8. Sensory Loss (pinprick arms/legs/face) - 0(Normal) 9. Best Language: Aphasia (description/naming/reading) - 0(No aphasia) 10. Dysarthria (speech clarity - read or repeat words) - 1(Mild to Moderate) 11. Extinction and Inattention (visual/tactile/auditory/spatial/personal) - 0(No abnormality) Initials: NIH Stroke Scale - NIH Stroke Score Date: 06/12/2021 Time: 11:54 Total Score = 2 1a. Level of Consciousness (LOC) - 0(Alert) 1b. Level of Consciousness (LOC) (Month \\T\\ Age) - 0(Both) 1c. LOC Commands (Open \\T\\ Closes Eyes/Registration Rep) - 0(Both) 2. Best Gaze (Lateral Gaze Paresis) - 0(Normal) 3. Visual Field Loss - 0(No visual loss) 4. Facial Palsy - 0(Normal) 5a. Left Arm: Motor (10-second hold) - 0(No drift) 5b. Right Arm: Motor (10-second hold) - 0(No drift) 6a. Left Leg: Motor (5-second hold - always test supine) - 0(No drift) 6b. Right Leg: Motor (5-second hold - always test supine) - 0(No drift) 7. Limb Ataxia (finger/nose \\T\\ heel/lozano - test with eyes open) - 0(Absent) 8. Sensory Loss (pinprick arms/legs/face) - 0(Normal) 9. Best Language: Aphasia (description/naming/reading) - 1(Mild to moderate aphasia) 10. Dysarthria (speech clarity - read or repeat words) - 1(Mild to Moderate) 11. Extinction and Inattention (visual/tactile/auditory/spatial/personal) - 0(No abnormality) Initials: tammy Signatures: Dispatcher [employer] EDAnirudh Medina MD MD cha Peltier, Brian RN RN Naomi Landin RN RN vg1 Corrections: (The following items were deleted from the chart) 1108 11:07 tto med/neuro tammy tammy 11:57 11:08 tto med/neuro tammy tammy 11:58 11:57 tto med/neuro tammy tammy 15:07 11:58 tto med/neuro tammy bp
--- NOTE | 2021-06-12 11:08 | ER ---
Nurse's Notes [facility] Name: Say Olivera Age: 61 yrs Sex: Male : 1960 Arrival Date: 06/12/2021 Time: 09:56 Bed 7 Private MD: Diagnosis: Cerebral infarction, unspecified;Ataxia, unspecified;Aphasia following cerebral infarction;Tobacco abuse counseling;Tobacco use;Type 1 diabetes mellitus with hyperglycemia;COPD/ Chronic obstructive pulmonary disease, unspecified;Atelectasis Presentation: 06/12 10:00 Chief complaint: Patient states: CODE STROKE CALLED AT 1000; Pt family member states vg1 slurred speech and unsteady gate x 1 week; Pt states numbness to extremities and headache; states went to [place] and did not have any scans done. 10:00 Coronavirus screen: Client denies travel out of the [place] in the last 14 days. Ebola vg1 Screen: Patient negative for fever greater than or equal to 101.5 degrees Fahrenheit, and additional compatible Ebola Virus Disease symptoms. Onset of symptoms was June 05, 2021. 10:00 Method Of Arrival: Ambulatory vg1 10:00 Acuity: PIERRE 2 vg1 10:00 An acute neurological deficit is present. The charge nurse has been notified. The bp patient has been moved to a treatment area. Pre-hospital glucose is not applicable to this patient. 10:00 Initial Sepsis Screen: Does the patient meet any 2 criteria? No. Patient's initial bp sepsis screen is negative. Does the patient have a suspected source of infection? No. Patient's initial sepsis screen is negative. Risk Assessment: Do you want to hurt yourself or someone else? Patient reports no desire to harm self or others. Triage Assessment: 10:00 The onset of the patients symptoms was more than six hours ago. The onset of the bp patients symptoms was June 05, 2021 at 09:00. General: Appears in no apparent distress. comfortable, obese, Behavior is calm, cooperative, appropriate for age. Pain: Denies pain. EENT: No deficits noted. Neuro: Reports SLURRED SPEECH, UNSTEADY GAIT. Cardiovascular: No deficits noted. Respiratory: No deficits noted. GI: No signs and/or symptoms were reported involving the gastrointestinal system. : No signs and/or symptoms were reported regarding the genitourinary system. Derm: No deficits noted. Musculoskeletal: No deficits noted. Stroke Activation: Physician: Stroke Attending; Name: Anthony; Notified At: ; Arrived At: Physician: Chief Stroke Resident; Name: ; Notified At: ; Arrived At: Physician: Stroke Resident; Name: ; Notified At: ; Arrived At: Physician: ED Attending; Name: ; Notified At: ; Arrived At: Physician: ED Resident; Name: ; Notified At: ; Arrived At: Historical: - Allergies: 10:20 shrimp/shellfish; vg1 10:20 thorazine; vg1 10:20 yellow dye #5; vg1 - Home Meds: 10:20 amlodipine oral [Active]; atorvastatin oral [Active]; Bupropion Oral [Active]; vg1 cholecalciferol (vitamin D3) oral [Active]; Fish Oil oral [Active]; losartan oral [Active]; lurasidone oral [Active]; metformin Oral [Active]; sertraline oral [Active]; lurasidone oral [Active]; - PMHx: 10:20 COPD; Diabetes - IDDM; High Cholesterol; Hypertension; polycythemia vera; vg1 schizoaffective; - Immunization history:: Adult Immunizations up to date. - Social history:: Smoking status: Patient reports the use of cigarette tobacco products, unknown amount. Screenin:20 Abuse screen: Denies threats or abuse. Denies injuries from another. Nutritional bp screening: No deficits noted. Tuberculosis screening: No symptoms or risk factors identified. Fall Risk None identified. Assessment: 10:00 The patient has not been NPO before screening. The patient is alert, and able to follow bp commands. The patient does not exhibit slurred or garbled speech. The patient is not exhibiting difficulty speaking. The patient does not exhibit difficulty understanding words. The patient is able to swallow own secretions with no drooling or need for suction. Patient tolerated one teaspoon of water. No drooling, immediate coughing, gurgling, or clearing of the throat was noted. The patient tolerated 90mL of water. No drooling, immediate coughing, gurgling, or clearing of the throat was noted. The patient passed the bedside swallow screening. Oral medications may be given as ordered. Contact Physician for further diet orders. T-PA (Activase) Screening: Contraindications: Patient reports onset of signs and symptoms of stroke greater than 6 hours ago: Yes. General: SEE TRIAGE NOTE. 10:00 VAN Scoring: Arm Drift: Patients demonstrates NO arm weakness. Patient is VAN Negative. bp Provider notified of bedside swallow screening results: Anirudh Cruz MD. 11:30 Reassessment: TRANSFER INITIATED. bp 13:04 Reassessment: REPORT TO MICHAEL ROMERO AT [facility]. bp 15:01 Reassessment: [facility]. bp Vital Signs: 10:35 BP 155 / 95; Pulse 90; Resp 20; Temp 97.7; Pulse Ox 93% ; zm 11:30 BP 129 / 90; Pulse 90; Resp 16; Pulse Ox 96% ; bp 12:00 BP 153 / 82; Pulse 85; Resp 14; Pulse Ox 95% ; bp 13:04 BP 137 / 88; Pulse 86; Resp 18; Pulse Ox 95% ; bp 14:00 BP 148 / 81; Pulse 85; Resp 9; Pulse Ox 96% ; bp 15:00 BP 146 / 85; Pulse 82; Resp 12; Pulse Ox 95% ; bp NIH Stroke Scale Scores: 10:00 NIHSS Score: 1 bp 11:54 NIHSS Score: 2 tammy ED Course: 09:56 Patient arrived in ED. as 10:00 Anirudh Cruz MD is Attending Physician. tammy 10:00 Inserted saline lock: 20 gauge in right antecubital area, using aseptic technique. bp Blood collected. 10:00 Arm band placed on. bp 10:02 Robin Schwarz, HEATHER is Primary Nurse. bp 10:12 CT Stroke Brain w/o Contrast In Process Unspecified. EDMS 10:17 CT Head Angio In Process Unspecified. EDMS 10:17 CT Neck Angio In Process Unspecified. EDMS 10:20 Triage completed. vg1 10:20 Patient has correct armband on for positive identification. Bed in low position. Call bp light in reach. Side rails up X2. Adult w/ patient. 10:36 SARS-COV-2 RT PCR (Document "Date of Onset" if Symptomatic) Sent. zm 11:35 XRAY Chest (1 view) In Process Unspecified. EDMS 15:06 No provider procedures requiring assistance completed. Patient transferred, IV remains bp in place. Administered Medications: 10:20 Drug: NS 0.9% 1000 ml Route: IV; Rate: 1 bolus; Site: right antecubital; bp 11:54 Follow up: IV Status: Completed infusion; IV Intake: 1000ml bp 10:20 Drug: foLIC Acid 1 mg Route: IVPB; Site: right antecubital; bp 12:57 Follow up: IV Status: Completed infusion; IV Intake: 100ml bp 11:20 Drug: Aspirin Chewable Tablet 324 mg Route: PO; bp 11:53 Follow up: Response: No adverse reaction bp 11:20 Drug: PlaVIX (clopidogrel) 75 mg Route: PO; bp 11:53 Follow up: Response: No adverse reaction bp 11:20 Drug: Pepcid (famotidine) 20 mg Route: IVP; Site: right antecubital; bp 11:53 Follow up: Response: No adverse reaction bp 12:00 Drug: Nicoderm CQ Patch 21 mg/24 hr 1 patches Route: Transdermal; Site: affected area; bp Intake: 11:54 IV: 1000ml; Total: 1000ml. bp 12:57 IV: 100ml; Total: 1100ml. bp Outcome: 11:07 ER care complete, transfer ordered by . tammy 15:03 Transferred by ground EMS to [facility], Transfer form completed. bp 15:03 Condition: stable 15:03 Instructed on the need for transfer. 15:07 Patient left the ED. bp NIH Stroke Scale - NIH Stroke Score Date: 06/12/2021 Time: 10:00 Total Score = 1 1a. Level of Consciousness (LOC) - 0(Alert) 1b. Level of Consciousness (LOC) (Month \\T\\ Age) - 0(Both) 1c. LOC Commands (Open \\T\\ Closes Eyes/Steel Fabricator) - 0(Both) 2. Best Gaze (Lateral Gaze Paresis) - 0(Normal) 3. Visual Field Loss - 0(No visual loss) 4. Facial Palsy - 0(Normal) 5a. Left Arm: Motor (10-second hold) - 0(No drift) 5b. Right Arm: Motor (10-second hold) - 0(No drift) 6a. Left Leg: Motor (5-second hold - always test supine) - 0(No drift) 6b. Right Leg: Motor (5-second hold - always test supine) - 0(No drift) 7. Limb Ataxia (finger/nose \\T\\ heel/lozano - test with eyes open) - 0(Absent) 8. Sensory Loss (pinprick arms/legs/face) - 0(Normal) 9. Best Language: Aphasia (description/naming/reading) - 0(No aphasia) 10. Dysarthria (speech clarity - read or repeat words) - 1(Mild to Moderate) 11. Extinction and Inattention (visual/tactile/auditory/spatial/personal) - 0(No abnormality) Initials: bp NIH Stroke Scale - NIH Stroke Score Date: 06/12/2021 Time: 11:54 Total Score = 2 1a. Level of Consciousness (LOC) - 0(Alert) 1b. Level of Consciousness (LOC) (Month \\T\\ Age) - 0(Both) 1c. LOC Commands (Open \\T\\ Closes Eyes/Steel Fabricator) - 0(Both) 2. Best Gaze (Lateral Gaze Paresis) - 0(Normal) 3. Visual Field Loss - 0(No visual loss) 4. Facial Palsy - 0(Normal) 5a. Left Arm: Motor (10-second hold) - 0(No drift) 5b. Right Arm: Motor (10-second hold) - 0(No drift) 6a. Left Leg: Motor (5-second hold - always test supine) - 0(No drift) 6b. Right Leg: Motor (5-second hold - always test supine) - 0(No drift) 7. Limb Ataxia (finger/nose \\T\\ heel/lozano - test with eyes open) - 0(Absent) 8. Sensory Loss (pinprick arms/legs/face) - 0(Normal) 9. Best Language: Aphasia (description/naming/reading) - 1(Mild to moderate aphasia) 10. Dysarthria (speech clarity - read or repeat words) - 1(Mild to Moderate) 11. Extinction and Inattention (visual/tactile/auditory/spatial/personal) - 0(No abnormality) Initials: tammy Signatures: Dispatcher [employer] Anirudh Pedroza MD MD cha Martinez, Amelia as Peltier, Brian, RN RN Naomi Landin, HEATHER RN vg1 Justa Olvera
[2021-06-12] MEDS ORDERED: CLOPIDOGREL 75 MG TABLET ONE (11:41)
[2021-06-12] MEDS ORDERED: ASPIRIN 81 MG CHEWABLE TABLET ONE (11:41)
[2021-06-12] MEDS ORDERED: FAMOTIDINE 20 MG/2 ML VIAL IV ONE (11:41)
--- NOTE | 2021-06-12 11:47 | RAD REPORT ---
EXAM DESCRIPTION: RAD - Chest Single View - 06/12/2021 11:33 am CLINICAL HISTORY: COUGH COMPARISON: Chest Pa And Lat (2 Views) dated 05/28/2020; Chest Single View dated 05/27/2020; Chest Singl e View dated 05/25/2020; Chest Single View dated 05/24/2020; Neck Angio dated 06/12/2021 FINDINGS: Lines: None. Lungs: Mild increased opacities at the right lung base. Pleural: No significant pleural effusions or pneumothorax. Cardiac: The heart size is within normal limits. Bones: No acute fractures. Other: IMPRESSION: No definite acute process identified. Opacities medially within the right lung base favo red represent atelectasis. Pneumonia/pneumonitis within the differential.
[2021-06-12 11:48] LABS: Urine Blood Negative (Negative); Urine Glucose Negative (Negative); Urine Protein Negative (Negative); Urine Specific Gravity 1.015 (1.005-1.030); Urine pH 7.5 (5.0-7.0)
[2021-06-12] MEDS ORDERED: NICOTINE 21 MG/PAT TD ONE (12:51)
[2021-06-12 20:42] VITALS: TEMP 97.7
[2021-06-12 20:50] VITALS: BP 146/85; O2SAT 95
--- NOTE | 2021-06-13 07:56 | EKG ---
Test Date: 2021-06-12 Test Time: 10:31:55 Surfacing Technician: BERNADETTE MEASUREMENT RESULTS: Intervals: Rate: 88 DC: 144 QRSD: 108 QT: 374 QTc: 452 [place]: P: 48 DC: 144 QRS: -45 T: 61 INTERPRETIVE STATEMENTS: Normal sinus rhythm Left anterior fascicular block Cannot rule out Anterior infarct, age undetermined Abnormal ECG Compared to ECG 05/22/2020 16:01:18 Left anterior fascicular block now present Myocardial infarct finding now present Sinus tachycardia no longer present Left-axis deviation no longer present Electronically Signed On 06-13-21 07:55:31 CDT by Saroj Owens
== END 2021-06-12 15:07 | disposition short-term general hospital (02) ==
LOC: ER 09:54
DX: I63.9 Cerebral infarction, unspecified (principal); R27.0 Ataxia, unspecified; I69.320 Aphasia following cerebral infarction; R29.702 NIHSS score 2; Z71.6 Tobacco abuse counseling; J44.9 Chronic obstructive pulmonary disease, unspecified; J98.11 Atelectasis; E10.65 Type 1 diabetes mellitus with hyperglycemia; Z20.822 Contact with and (suspected) exposure to COVID-19
CPT/HCPCS: 96365; 93005; 85025; 80048; 36415; 83735; 85610; 82565; 80076; 81003; 84484; 83880; 70496; 70498; 70450; 71045; 96375; 99285; 96366; U0003; Q9967; J7030; J3490

== ENCOUNTER 2021-10-14 15:18 | Emergency (ER) | payer OTHER ==
--- OUTSIDE RECORDS SUMMARY | 2021-10-14 15:23 | XMS REPORT | Continuity of Care Document ---
:1960 Author Organization [facility] t Address [facility] [place] [address] Care Team Providers Name Role Phone EVENS WEBSTER Attending Clinician Unavailable EVENS WEBSTER Admitting Clinician Unavailable Payers Payer Name Policy Type Policy Number Effective Date Expiration Date Sharonda lui [facility] CHOICE [id number] 2021 00:00:00 CARD AND PC3 Problems This patient has no known problems. Allergies, Adverse Reactions, Alerts Allergy Allergy Status Severity Reaction(s) Onset Inactive Treating Comm ents Source Name Type Date Date Clinician SHELLFIS [facility] PRODUCTS SHRIMP [facility] CHLORPRO Allergy Active [address] [facility] YELLOW Allergy Active 2021-[address] [facility] Medical 00 [place] NO KNOWN [facility] This patient has no known medications. Vital Signs Vital Name Observation Time Observation Value Comments Source HEIGHT 2021-06-12 18:04:00 167.6 cm WEIGHT 2021-06-12 18:04:00 94.348 kg HEIGHT 2021-06-12 18:04:00 167.6 cm WEIGHT 2021-06-12 18:04:00 94.348 kg Procedures This patient has no known procedures. Encounters Start End Encounter Admission Attending Care Care Encounter Source Date/Time Date/Time Type Type Clinicians Facility Department ID 2021-06-12 2021-06-13 Outpatient ER APRIL WEBSTER Neurology [id number] [facility] 16:44:00 12:16:00 EVENS Results Test Description Test Time Test Comments Results Result Comments Source BASIC METABOLIC PANEL 2021-06-13 10:14:40 Test Item Value Reference Range Interpretation Comme nts SODIUM (BEAKER) (test code 137 meq/L 135-148 = 381) POTASSIUM (BEAKER) (test 4.1 meq/L 3.6-5.5 code = 379) CHLORIDE (BEAKER) (test 106 meq/L 98-106 code = 382) CO2 (BEAKER) (test code = 22 meq/L 20-29 355) BLOOD UREA NITROGEN 7 mg/dL 10-26 L (BEAKER) (test code = 354) CREATININE (BEAKER) (test 0.71 mg/dL 0.50-1.20 code = 358) GLUCOSE RANDOM (BEAKER) 82 mg/dL 70-110 (test code = 652) CALCIUM (BEAKER) (test 9.3 mg/dL 8.5-10.5 code = 697) EGFR (BEAKER) (test code = 113 mL/min/1.73 sq m ESTIMATED GFR IS NOT 1092) ACCURATE CRE ATININE CLEARANCE IN [place] EDICTING GLOMERULAR FILT RATION RATE. ESTIMATED GFR IS NOT APPLICABLE FOR DIALYSIS PATIENTS. Staff Rn ID - DSENSONOperator ID - DSENSONOperator ID - DSENSONOperator ID - DSENSONOperator ID - DSENSONOperator ID - DSENSONOperator ID - DSENSONOperator ID - DSENSONOperator ID - DSENSONOperator ID - DSENSONLIPID [id number] 10:14:39 Test Item Value Reference Range Interpretation Comments TRIGLYCERIDES (BEAKER) (test code = 131 mg/dL 540) CHOLESTEROL (BEAKER) (test code = 126 mg/dL 631) HDL CHOLESTEROL (BEAKER) (test code 39 mg/dL = 976) LDL CHOLESTEROL CALCULATED (BEAKER) 61 mg/dL (test code = 633) Triglyceride Reference Range: Low Risk <150 Borderline 150-199 High Risk 200- 499 Very High Risk >=500Cholesterol Reference Range: Low Risk <200 Borderline 200-239 High Risk >240HDL Cholesterol Reference Range: Low Risk >=60 High Risk <40LDL Cholesterol Reference Range: Optimal <100 Near Optimal 100-129 Borderline 130-159 High 160-189 Very High >=190 Staff Rn ID - DSENSONOperator ID - DSENSONOperator ID - DSENSONOperator ID - DSENSONOperator ID - DSENSONOperator ID - DSENSONHEMOGLOBIN [id number] 10:05:35 Test Item Value Reference Range Interpretation Comments HEMOGLOBIN A1C (BEAKER) (test code = 4.8 % 4.3-6.1 368) Staff Rn ID - DSENSONCBC W/PLT COUNT & AUTO [id number] 09:58:48 Test Item Value Reference Range Interpretation Comments WHITE BLOOD CELL COUNT (BEAKER) 10.3 K/ L 4.0-10.0 H (test code = 775) RED BLOOD CELL COUNT (BEAKER) 6.02 M/ L 4.20-5.80 H (test code = 761) HEMOGLOBIN (BEAKER) (test code = 17.4 GM/DL 13.0-16.8 H 410) HEMATOCRIT (BEAKER) (test code = 50.6 % 36.0-50.0 H 411) MEAN CORPUSCULAR VOLUME (BEAKER) 84.1 fL 82.0-99.0 (test code = 753) MEAN CORPUSCULAR HEMOGLOBIN 28.9 pg 27.0-33.0 (BEAKER) (test code = 751) MEAN CORPUSCULAR HEMOGLOBIN CONC 34.4 GM/DL 32.0-36.0 (BEAKER) (test code = 752) RED CELL DISTRIBUTION WIDTH 15.0 % 12.0-15.0 (BEAKER) (test code = 412) PLATELET COUNT (BEAKER) (test 320 K/CU MM 150-430 code = 756) MEAN PLATELET VOLUME (BEAKER) 8.4 fL 6.0-11.5 (test code = 754) NUCLEATED RED BLOOD CELLS 0 /100 WBC 0-0 (BEAKER) (test code = 413) NEUTROPHILS RELATIVE PERCENT 74 % (BEAKER) (test code = 429) LYMPHOCYTES RELATIVE PERCENT 13 % (BEAKER) (test code = 430) MONOCYTES RELATIVE PERCENT 8 % (BEAKER) (test code = 431) EOSINOPHILS RELATIVE PERCENT 4 % (BEAKER) (test code = 432) BASOPHILS RELATIVE PERCENT 0 % (BEAKER) (test code = 437) NEUTROPHILS ABSOLUTE COUNT 7.69 K/ L 1.80-8.00 (BEAKER) (test code = 670) LYMPHOCYTES ABSOLUTE COUNT 1.32 K/ L 1.48-4.50 L (BEAKER) (test code = 414) MONOCYTES ABSOLUTE COUNT (BEAKER) 0.77 K/ L 0.00-1.30 (test code = 415) EOSINOPHILS ABSOLUTE COUNT 0.45 K/ L 0.00-0.50 (BEAKER) (test code = 416) BASOPHILS ABSOLUTE COUNT (BEAKER) 0.04 K/ L 0.00-0.20 (test code = 417) IMMATURE GRANULOCYTES-RELATIVE 1 % 0-0 H PERCENT (BEAKER) (test code = 2801) POCT-GLUCOSE [id number] 07:46:05 Test Item Value Reference Range Interpretation Comments POC-GLUCOSE METER 86 mg/dL 70-110 : TESTED A T [facility] [address] (BEAKER) (test code = [address]) [facility] 77 478: Staff Rn/Techni berry ID = [id number] for Lucas h Hanh VITAMIN B12 AND [id number] 06:53:39 Test Item Value Reference Range Interpretation Comments VITAMIN B12 (BEAKER) 311 pg/mL 211-911 (test code = 774) FOLATE (BEAKER) 3.60 ng/mL See_Comment L [Automated message] (test code = 362) The system which generated this result transmitted ref erence range: >=5.4. T he reference range was not used to interpr et this result as normal/abnormal . Staff Rn ID - [id number] ID - DSENSONMR, MRA, BRAIN, WITHOUT CONTRAST 2021-06-13 02:26:00Unlisted Reason for Exam - Click Yes and Enter Reason Below- >YesUnlisted Reason for Exam->[facility] 1960 Sex: MFINAL REPORT EXAM/TECHNIQUE: MRI of the brain without contrast. MRA of the head and neck without IV contrast. Multiplanar multisequence images were acquired. INDICATION: Stroke. COMPARISON: None. FINDINGS: MRI OF THE BRAIN Subtle punctate DWI high flow subtle DWI hyperintensity in the central brittany without corresponding ADC hypointensity and with T2/FLAIR hyperintensity. Global parenchymal volume loss. Mild burden of T2/FLAIR white matter hyperintense lesions, likely reflecting chronic microvascular changes. No abnormal susceptibility artifact. Ventricles are normal. Basal cisterns are patent. No midline shift. No tonsillar ectopia. Midline structures are unremarkable. Visualized face and upper neck are unremarkable. Flow voids are normal. Orbits are normal. Right maxillary mucoid retention cyst. Bilateral mastoid effusions. No suspicious osseous lesion. MR ANGIOGRAPHY OF THE HEAD AND NECK, EMPLOYING USE OF 3D RECONSTRUCTIONS. HEAD: Bilateral intracranial internal carotid arteries are patent without significant stenosis. The bilateral M1 and M2 segments of the MCAs are patent. The bilateral A1 and A2 segments of the ACAs are patent. The anterior communicating artery is patent. The bilateral vertebral arteries are patent. The bilateral PICAs are patent. The basilar artery is patent. Right AICA is patent. Left AICA is not visualized. The SCAs are patent. Right P1 segmentof the CONCRETE SWIMMING POOL INSTALLER is hypoplastic with like morphology. P2 segments are patent. Unremarkable appearance of the posterior communicating arteries. no visible aneurysm. NECK: Conventional three vessel anatomy of the aortic arch. The bilateral common carotid arteries are patent. There is no stenosis at the c arotid bifurcation by criteria. Internal carotid arteries are patent. The vertebral arteries are patent. No abnormal structure is visualized on limited evaluation of the neck. Impression: 1. No acute infarct. No large vessel occlusion or hemodynamically significant stenosis. 2. Suspect subacute central pontine punctate infarcts. Signed: Padilla Damon MDReport Verified Date/Time: 06/13/2021 02:26:38 MR, MRA, NECK, WITHOUT IV [id number] 02:26:00Unlisted Reason for Exam - Click Yes and Enter Reason Below->YesUnlisted Reason for Exam->Screen for stroke [facility] : 1960 Sex: MFINAL REPORT EXAM/TECHNIQUE: MRI of the brain without contrast. MRA of the head and neck without IV contrast. Multiplanar multisequence images were acquired. INDICATION: Stroke. COMPARISON: None. FINDINGS: MRI OF THE BRAIN Subtle punctate DWI high flow subtle DWI hyperintensity in the central brittany without corresponding ADC hypointensity and with T2/FLAIR hyperintensity. Global parenchymal volume loss. Mild burden of T2/FLAIR white matter hyperintense lesions, likely reflecting chronic microvascular changes. No abnormal susceptibility artifact. Ventricles are normal. Basal cisterns are patent. No midline shift. No tonsillar ectopia. Midline structures are unremarkable. Visualized face and upper neck are unremarkable. Flow voids are normal. Orbits are normal. Right maxillary mucoid retention cyst. Bilateral mastoid effusions. No suspicious osseous lesion. MR ANGIOGRAPHY OF THE HEAD AND NECK, EMPLOYING USE OF 3D RECONSTRUCTIONS. HEAD: Bilateral intracranial internal carotid arteries are patent without significant stenosis. The bilateral M1 and M2 segments of the MCAs are patent. The bilateral A1 and A2 segments of the ACAs are patent. The anterior communicating artery is patent. The bilateral vertebral arteries are patent. The bilateral PICAs are patent. The basilar arteryis patent. Right AICA is patent. Left AICA is not visualized. The SCAs are patent. Right P1 segment of the CONCRETE SWIMMING POOL INSTALLER is hypoplastic with like morphology. P2 segments are patent. Unremarkable appearanceof the posterior communicating arteries. no visible aneurysm. NECK: Conventional three vessel anatomy of the aortic arch. The bilateral common carotid arteries are patent. There is no stenosis at the ca rotid bifurcation by criteria. Internal carotid arteries are patent. The vertebral arteries are patent. No abnormal structure is visualized on limited evaluation of the neck. Impression: 1. No acute infarct. No large vessel occlusion or hemodynamically significant stenosis. 2. Suspect subacute central pontine punctate infarcts. Signed: Padilla Damon MDReport Verified Date/Time: 06/13/2021 02:26:38 MR, BRAIN, WITHOUT [id number] 02:26:00Unlisted Reason for Exam - Click Yes and Enter Reason Below->YesUnlisted Reason for Exam->[facility] : 1960 Sex: MFINAL REPORT EXAM/TECHNIQUE: MRI of the brain without contrast. MRA of the head and neck without IV contrast. Multiplanar multisequence images were acquired. INDICATION: Stroke. COMPARISON: None. FINDINGS: MRI OF THE BRAIN Subtle punctate DWI high flow subtle DWI hyperintensity in the central brittany without corresponding ADC hypointensity and with T2/FLAIR hyperintensity. Global parenchymal volume loss. Mild burden of T2/FLAIR white matter hyperintense lesions, likely reflecting chronic microvascular changes. No abnormal susceptibility artifact. Ventricles are normal. Basal cisterns are patent. No midline shift. No tonsillar ectopia. Midline structures are unremarkable. Visualized face and upper neck are unremarkable. Flow voids are normal. Orbits are normal. Right maxillary mucoid retention cyst. Bilateral mastoid effusions. No suspicious osseous lesion. MR ANGIOGRAPHY OF THE HEAD AND NECK, EMPLOYING USE OF 3D RECONSTRUCTIONS. HEAD: Bilateral intracranial internal carotid arteries are patent without significant stenosis. The bilateral M1 and M2 segments of the MCAs are patent. The bilateral A1 and A2 segments of the ACAs are patent. The anterior communicating artery is patent. The bilateral vertebral arteries are patent. The bilateral PICAs are patent. The basilar arteryis patent. Right AICA is patent. Left AICA is not visualized. The SCAs are patent. Right P1 segment of the CONCRETE SWIMMING [employer]OL INSTALLER is hypoplastic with like morphology. P2 segments are patent. Unremarkable appearanceof the posterior communicating arteries. no visible aneurysm. NECK: Conventional three vessel anatomy of the aortic arch. The bilateral common carotid arteries are patent. There is no stenosis at the ca rotid bifurcation by criteria. Internal carotid arteries are patent. The vertebral arteries are patent. No abnormal structure is visualized on limited evaluation of the neck. Impression: 1. No acute infarct. No large vessel occlusion or hemodynamically significant stenosis. 2. Suspect subacute central pontine punctate infarcts. Signed: Padilla Damon MDReport Verified Date/Time: 06/13/2021 02:26:38 POCT-GLUCOSE [id number] 16:56:55 Test Item Value Reference Range Interpretation Comments POC-GLUCOSE METER 84 mg/dL 70-110 : TESTED A T [facility] ([facility]) (test code = [address], [address]) [facility] 77 478: Staff Rn/Techni berry ID = [id number] for Hanh De Dios
--- NOTE | 2021-10-14 17:15 | RAD REPORT ---
EXAM DESCRIPTION: CT - Head Brain Wo Cont - 10/14/2021 5:02 pm CLINICAL HISTORY: Fall/dizziness COMPARISON: May 2021 TECHNIQUE: Computed axial tomography of the head was obtained. IV contrast was not requested. All CT scans are performed using dose optimization technique as appropriate and may include automated exposure control or mA/KV adjustment according to patient size. FINDINGS: An intracranial bleed is not seen . The ventricles are normal in caliber. No extra-axial fluid collection is noted. No significant hypodensity within the brain Mild unchanged opacification of the mastoids. IMPRESSION: No acute intracranial abnormality is seen. If patient's symptoms persist MRI of the bra in would be recommended.
--- NOTE | 2021-10-14 17:19 | ER ---
Nurse's Notes [facility] Name: Say Olivera Age: 61 yrs Sex: Male : 1960 Arrival Date: 10/14/2021 Time: 15:23 Bed 25 Private MD: Diagnosis: Dizziness and giddiness;Headache Presentation: 10/14 15:50 Chief complaint: Patient states: Pt reports he was walking throughout his house today kb3 and suddenly felt dizzy with a headache and fell forward on the carpeted floor. Denies LOC. Remote history of CVA. Dr Gregorio in triage to assess pt. Coronavirus screen: Vaccine status: Patient reports receiving the 2nd dose of the covid vaccine. Client denies travel out of the [place] in the last 14 days. At this time, the client does not indicate any symptoms associated with coronavirus-19. Ebola Screen: Patient negative for fever greater than or equal to 101.5 degrees Fahrenheit, and additional compatible Ebola Virus Disease symptoms Patient denies exposure to infectious person. Patient denies travel to an Ebola-affected area in the 21 days before illness onset. No symptoms or risks identified at this time. Initial Sepsis Screen: Does the patient meet any 2 criteria? No. Patient's initial sepsis screen is negative. Does the patient have a suspected source of infection? No. Patient's initial sepsis screen is negative. Risk Assessment: Do you want to hurt yourself or someone else? Patient reports no desire to harm self or others. Onset of symptoms was October 14, 2021 at 15:00. 15:50 Method Of Arrival: Wheelchair kb3 15:50 Acuity: PIERRE 3 kb3 16:30 Care prior to arrival: None. Mechanism of Injury: Fall from standing position. Trauma ph event details: Injury occurred in the [facility], Injury occurred: at home. Injury occurred: October 14, 2021. Triage Assessment: 15:55 General: Appears in no apparent distress. Behavior is calm, cooperative. Pain: Denies kb3 pain. Historical: - Allergies: 15:55 shrimp/shellfish; kb3 15:55 thorazine; kb3 15:55 yellow dye #5; kb3 - PMHx: 15:55 COPD; Diabetes - IDDM; High Cholesterol; Hypertension; polycythemia vera; kb3 schizoaffective; Cerebrovascular accident; - Immunization history:: Adult Immunizations up to date, Client reports having NOT received the Covid vaccine. Last tetanus immunization: up to date. - Social history:: Smoking status: Patient reports the use of cigarette tobacco products, smokes more than three packs cigarettes per day. Patient/guardian denies using alcohol, street drugs. - Family history:: not pertinent. - Hospitalizations: : No recent hospitalization is reported. Screenin:30 Abuse screen: Denies threats or abuse. Denies injuries from another. Nutritional ph screening: No deficits noted. Tuberculosis screening: No symptoms or risk factors identified. Fall Risk Fall in past 12 months (25 points). No secondary diagnosis (0 pts). No IV (0 pts). Ambulatory Aid- None/Bed Rest/Nurse Assist (0 pts). Gait- Normal/Bed Rest/Wheelchair (0 pts) Mental Status- Oriented to own ability (0 pts). Total [place] Fall Scale indicates Low Risk Score (25-44 pts). Primary Survey: 16:30 NO uncontrolled hemorrhage observed. A: The client is awake and alert. The airway is ph patent. Breathing/Chest: Spontaneous respiratory effort, equal unlabored respirations, breath sounds clear bilaterally, regular pattern, symmetrical chest rise and fall. Circulation: No external hemorrhage present. Regular and strong central pulse, skin warm/dry/normal color. Disability Pupils are equal, round, reactive to light and accommodation. Exposure/Environment: There is no evidence of uncontrolled external bleeding. No obvious injuries are noted at this time. 18:00 Reassessment Alertness and Airway: Awake and alert. The airway is patent. Breathing: ph Spontaneous respiratory effort, equal unlabored respirations, breath sounds clear bilaterally, regular pattern with symmetrical chest rise and fall. Circulation: No external hemorrhage noted. Regular and strong central pulse, skin warm/dry/normal color. Disability: Pupils Pupils are equal, round, reactive to light and accomodation. Alert. Assessment: 16:30 General: Appears in no apparent distress. Behavior is calm, cooperative, appropriate ph for age. Pain: Complains of pain in frontal area. Neuro: Level of Consciousness is awake, alert, obeys commands, Oriented to person, place, time, situation, Reports headache. Cardiovascular: Capillary refill < 3 seconds in bilateral fingers Patient's skin is warm and dry. Respiratory: Airway is patent Respiratory effort is even, unlabored. Derm: Skin is healthy with good turgor, Skin is pink, warm \T\ dry. 18:00 Reassessment: Patient appears in no apparent distress at this time. Patient and/or ph family updated on plan of care and expected duration. Pain level reassessed. Patient is alert, oriented x 3, equal unlabored respirations, skin warm/dry/pink. Vital Signs: 15:50 BP 143 / 95; Pulse 100; Resp 20; Temp 98; Pulse Ox 97% ; Weight 83.91 kg; Height 5 ft. kb3 6 in. (167.64 cm); Pain 0/10; 17:00 BP 137 / 86; Pulse 89; Resp 18; Temp 98.0; Pulse Ox 98% on R/A; ph 15:50 Body Mass Index 29.86 (83.91 kg, 167.64 cm) kb3 [place] Coma Score: 17:00 Eye Response: spontaneous(4). Verbal Response: oriented(5). Motor Response: obeys ph commands(6). Total: 15. 18:00 Eye Response: spontaneous(4). Verbal Response: oriented(5). Motor Response: obeys ph commands(6). Total: 15. Trauma Score (Adult): 17:00 Eye Response: spontaneous(1); Verbal Response: oriented(1); Motor Response: obeys ph commands(2); Systolic BP: > 89 mm Hg(4); Respiratory Rate: 10 to 29 per min(4); [place] Score: 15; Trauma Score: 12 ED Course: 15:23 Patient arrived in ED. mr 15:29 Star Gregorio MD is Attending Physician. rn 15:55 Triage completed. kb3 15:55 Arm band placed on left wrist. kb3 16:30 Patient has correct armband on for positive identification. Bed in low position. Call ph light in reach. Side rails up X 1. Pulse ox on. NIBP on. Door closed. Noise minimized. 16:30 Thermoregulation: warm blanket given to patient. ph 16:54 Mandi Yo, HEATHER is Primary Nurse. ph 17:04 CT Head Brain wo Cont In Process Unspecified. EDMS 18:10 Patient maintains SpO2 saturation greater than 95% on room air. ph 18:15 No provider procedures requiring assistance completed. Patient did not have IV access ph during this emergency room visit. Administered Medications: No medications were administered Medication: 16:30 VIS not applicable for this client. ph Intake: 18:00 PO: 0ml; Total: 0ml. ph Output: 18:00 Urine: 0ml; Total: 0ml. ph Outcome: 17:18 Discharge ordered by . rn 18:14 Patient left the ED. ss 18:15 Discharged to home via wheelchair, with family. ph 18:15 Condition: good 18:15 Discharge instructions given to patient, Instructed on discharge instructions, follow up and referral plans. Demonstrated understanding of instructions, follow-up care. 18:15 Patient's length of stay was not longer than 2 hours. ph Signatures: Dispatcher [employer] EDPR Denis Regina valencia Star Gregorio MD MD rn Smirch, Shelby, RN RN Mandi Yo RN RN Linsey Castano RN RN kb3 Corrections: (The following items were deleted from the chart) 19:39 19:37 Discharged to home via wheelchair, with family, ph ph 19:39 19:37 Condition: good ph ph 19:39 19:37 Discharge instructions given to patient, Instructed on discharge instructions, ph follow up and referral plans. Demonstrated understanding of instructions, follow-up care, ph
--- NOTE | 2021-10-14 17:19 | EDPHYS ---
Physician Documentation [facility] Name: Say Olivera Age: 61 yrs Sex: Male : 1960 Arrival Date: 10/14/2021 Time: 15:23 Bed 25 Private MD: ED Physician Star Gregorio HPI: 10/14 16:12 This 61 yrs old Male presents to ER via Wheelchair with complaints of headache, dizzy, rn fall. 16:12 Details of fall: The patient fell from an upright position, while walking. Onset: The rn symptoms/episode began/occurred just prior to arrival. Associated injuries: The patient sustained no obvious injury. Severity of symptoms: At their worst the symptoms were moderate, in the emergency department the symptoms have improved. The patient has experienced similar episodes in the past. The patient has not recently seen a physician. Pt reports walking at home, experienced dizziness, has been experiencing dizzy spells since april and has been hospitalized for this without obvious cause. Reports fell to ground, caught himself with his arms, does not believe he hit head, no LOC, remembers all events, and states did not injure anything from fall. States called nurse hotline who instructed him to come in for evaluation. Patient states feels fine, no new symptoms, and would not have come in if wasn't told to come.. Historical: - Allergies: 15:55 shrimp/shellfish; kb3 15:55 thorazine; kb3 15:55 yellow dye #5; kb3 - PMHx: 15:55 COPD; Diabetes - IDDM; High Cholesterol; Hypertension; polycythemia vera; kb3 schizoaffective; Cerebrovascular accident; - Immunization history:: Adult Immunizations up to date, Client reports having NOT received the Covid vaccine. Last tetanus immunization: up to date. - Social history:: Smoking status: Patient reports the use of cigarette tobacco products, smokes more than three packs cigarettes per day. Patient/guardian denies using alcohol, street drugs. - Family history:: not pertinent. - Hospitalizations: : No recent hospitalization is reported. ROS: 16:12 Constitutional: Negative for fever, chills, and weight loss, Eyes: Negative for injury, rn pain, redness, and discharge, Neck: Negative for injury, pain, and swelling, Cardiovascular: Negative for chest pain, palpitations, and edema, Respiratory: Negative for shortness of breath, cough, wheezing, and pleuritic chest pain, Abdomen/GI: Negative for abdominal pain, nausea, vomiting, diarrhea, and constipation, Back: Negative for injury and pain, : Negative for injury, bleeding, discharge, and swelling, MS/Extremity: Negative for injury and deformity, Skin: Negative for injury, rash, and discoloration, Neuro: Negative for numbness, tingling, and seizure. Exam: 16:12 Constitutional: This is a well developed, well nourished patient who is awake, alert, rn and in no acute distress. Head/Face: Normocephalic, atraumatic. Eyes: Periorbital areas with no swelling, redness, or edema. Neck: No midline tenderness Chest/axilla: Normal chest wall appearance and motion. Nontender with no deformity. No lesions are appreciated. Cardiovascular: Regular rate and rhythm. No pulse deficits. Respiratory: No increased work of breathing, no retractions or nasal flaring. Abdomen/GI: Soft, non-tender Back: No spinal tenderness. No costovertebral tenderness. Full range of motion. Skin: Warm, dry MS/ Extremity: Pulses equal, no cyanosis. Neuro: Awake and alert, GCS 15, oriented to person, place, time, and situation. Cranial nerves II-XII grossly intact. Motor strength 5/5 in all extremities. Sensory grossly intact. Cerebellar exam normal. 16:29 ECG was reviewed by the Attending Physician. rn Vital Signs: 15:50 BP 143 / 95; Pulse 100; Resp 20; Temp 98; Pulse Ox 97% ; Weight 83.91 kg; Height 5 ft. kb3 6 in. (167.64 cm); Pain 0/10; 17:00 BP 137 / 86; Pulse 89; Resp 18; Temp 98.0; Pulse Ox 98% on R/A; ph 15:50 Body Mass Index 29.86 (83.91 kg, 167.64 cm) kb3 [place] Coma Score: 17:00 Eye Response: spontaneous(4). Verbal Response: oriented(5). Motor Response: obeys ph commands(6). Total: 15. 18:00 Eye Response: spontaneous(4). Verbal Response: oriented(5). Motor Response: obeys ph commands(6). Total: 15. Trauma Score (Adult): 17:00 Eye Response: spontaneous(1); Verbal Response: oriented(1); Motor Response: obeys ph commands(2); Systolic BP: > 89 mm Hg(4); Respiratory Rate: 10 to 29 per min(4); [place] Score: 15; Trauma Score: 12 MDM: 15:29 Patient medically screened. rn 17:17 Differential diagnosis: closed head injury, contusion, near syncope, dizziness. Data rn reviewed: vital signs, nurses notes, EKG, radiologic studies, CT scan, and as a result, I will discharge patient. Counseling: I had a detailed discussion with the patient and/or guardian regarding: the historical points, exam findings, and any diagnostic results supporting the discharge/admit diagnosis, radiology results, the need for outpatient follow up, to return to the emergency department if symptoms worsen or persist or if there are any questions or concerns that arise at home. Special discussion: I discussed with the patient/guardian in detail that at this point there is no indication for admission to the hospital. It is understood, however, that if the symptoms persist or worsen the patient needs to return immediately for re-evaluation. ED course: No acute findings on CT head or EKG, stable vitals. Reports ongoing dizziness and ataxia since april, no new symptoms or findings. Will dc home with pcp and neuro f/u.. 10/14 15:57 Order name: CT Head Brain wo Cont; Complete Time: 17:17 rn 10/14 15:57 Order name: EKG; Complete Time: 15:58 rn 10/14 15:57 Order name: EKG - Nurse/Tech; Complete Time: 16:29 rn EC:29 Rate is 96 beats/min. Rhythm is regular. QRS [place] is Normal. MO interval is normal. QRS rn interval is normal. QT interval is normal. No Q waves. No ST changes noted. Clinical impression: NSR w/ Non-specific ST/T Changes. Interpreted by me. Reviewed by me. Administered Medications: No medications were administered Disposition Summary: 10/14/21 17:18 Discharge Ordered Location: Home rn Problem: an ongoing problem rn Symptoms: have improved rn Condition: Stable rn Diagnosis - Dizziness and giddiness rn - Headache rn Followup: rn - With: Private Physician - When: As needed - Reason: Recheck today's complaints, Re-evaluation by your physician Discharge Instructions: - Discharge Summary Sheet rn - Dizziness rn - General Headache Without Cause rn - Hypertension, Adult rn Forms: - Medication Reconciliation Form rn - Thank You Letter rn - Antibiotic qa internship - Prescription Opioid Use rn Signatures: Dispatcher [employer] EDStar Garay MD MD rn Bradberry, Kelly, RN RN kb3 Corrections: (The following items were deleted from the chart) 16:15 16:12 Constitutional: This is a well developed, well nourished patient who is awake, rn alert, and in no acute distress. Head/Face: Normocephalic, atraumatic. Eyes: Periorbital areas with no swelling, redness, or edema. Neck: No midline tenderness Cardiovascular: Regular rate and rhythm. No pulse deficits. Respiratory: No increased work of breathing, no retractions or nasal flaring. Abdomen/GI: Soft, non-tender Back: No spinal tenderness. No costovertebral tenderness. Full range of motion. Skin: Warm, dry MS/ Extremity: Pulses equal, no cyanosis. Neuro: Awake and alert, GCS 15, oriented to person, place, time, and situation. Cranial nerves II-XII grossly intact. Motor strength 5/5 in all extremities. Sensory grossly intact. Cerebellar exam normal. rn
[2021-10-14 19:14] VITALS: BP 143/95; TEMP 98; O2SAT 97
--- NOTE | 2021-10-15 13:50 | EKG ---
Test Date: 2021-10-14 Test Time: 16:22:50 Hvac Service Technician: JAMES MEASUREMENT RESULTS: Intervals: Rate: 96 DE: 138 QRSD: 102 QT: 384 QTc: 485 [place]: P: 52 DE: 138 QRS: -50 T: 45 INTERPRETIVE STATEMENTS: Sinus rhythm with occasional premature ventricular complexes Biatrial enlargement Left anterior fascicular block Left ventricular hypertrophy Prolonged QT Abnormal ECG Compared to ECG 06/12/2021 10:31:55 Ventricular premature complex(es) now present Atrial abnormality now present Left ventricular hypertrophy now present Prolonged QT interval now present Myocardial infarct finding no longer present Electronically Signed On 10-15-21 13:48:53 CDT by Jeff Patino
== END 2021-10-14 18:14 | disposition home or self-care (01) ==
LOC: ER 15:18
DX: R51.9 Headache, unspecified (principal); R42 Dizziness and giddiness; E11.9 Type 2 diabetes mellitus without complications; I10 Essential (primary) hypertension; F17.210 Nicotine dependence, cigarettes, uncomplicated; Z88.8 Allergy status to other drugs, medicaments and biological substances; Z91.013 Allergy to seafood; Z91.048 Other nonmedicinal substance allergy status
CPT/HCPCS: 70450; 93005; 99284

== ENCOUNTER 2021-11-23 10:02 | Emergency (ER) | payer OTHER ==
[2021-11-23 10:35] LABS: Absolute Lymphocytes (CBC) 1.8 K/uL (0.7-4.9); Hematocrit 51.4 % (39.6-49.0); Lymphocytes % 13.8 % (15.3-44.8); MCV 86.1 fL (80-100); MPV 7.1 fL (7.6-11.3); RBC Red Blood Cell Count 5.97 M/uL (4.33-5.43)
--- OUTSIDE RECORDS SUMMARY | 2021-11-23 10:56 | XMS REPORT | Continuity of Care Document ---
:1960 Author Organization [facility] t Address [address] [place] [address] Care Team Providers Name Role Phone CTR, [facility] MED Primary Care Physician Unavailable RAUL CHONG Attending Clinician Unavailable RAUL CHONG Attending Clinician Unavailable Raul Chong MD Attending Clinician Doctor Unassigned, [place] Attending Clinician Unavailable Evens Webster MD Attending Clinician [phone] EVENS WEBSTER Attending Clinician Unavailable RAUL CHONG Admitting Clinician Unavailable EVENS WEBSTER Admitting Clinician Unavailable Payers Payer Name Policy Type Policy Number Effective Date Expiration Date [facility] [id number] 2021 00:00:00 Problems Condition Condition Condition Status Onset Resolution Last Treating Co mments Source Name Details Category Date Date Treatment Clinician Date 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 4-20 [facility] 00:00: Medical 00 Center No known No known Disease Unive rs active active ity of problems problems [facility] Allergies, Adverse Reactions, Alerts Allergy Allergy Status Severity Reaction(s) Onset Inactive Treating Comm ents Source Name Type Date Date Clinician Shellfis Propensi Active [facility] ty to 4-20 [facility] Containi adverse 00:00: Medical ng reaction 00 Center Products s Shrimp Propensi Active [facility] ty to 4-20 [facility] adverse 00:00: Medical reaction 00 Center s Chlorpro Propensi Active 2021- [facility] mazine ty to 4-20 [facility] adverse 00:00: Medical reaction 00 Center s Yellow Propensi Active [facility] Dye ty to 4-20 [facility] adverse 00:00: Medical reaction 00 Center s CHLORPRO DRUG Active Unknown-Cmnt Un phil MAZINE INGREDI 4-20 ity of 00:00: [place] [address] Medical Branch SHRIMP DRUG Active Anaphylaxis Unive rs INGREDI 4-20 ity of 00:00: [place] [address] Medical Branch SHELLFIS Allergy Active [facility] H 4-20 [facility] CONTAINI 00:00: Medical NG 00 Center PRODUCTS SHRIMP Allergy Active [facility] 4-20 [facility] 00:00: Medical 00 Center CHLORPRO Allergy Active [facility] MAZINE 4-20 [facility] 00:00: Medical 00 Center YELLOW Allergy Active [facility] DYE 4-20 [facility] 00:00: Medical 00 Center NO KNOWN Allergy Active [facility] ALLERGIE [facility] Social History Social Habit Start Date Stop Date Quantity Comments Source History [facility]Med Medical [facility] Exposure to 2021-10-13 2021-10-23 Not sure University of SARS-CoV-2 (event) 00:00:00 09:38:00 [facility] History SDOH 2021-06-13 2021-06-[address] [facility] Transport Med 00:00:00 00:00:[address] History SDPR 2021-06-13 2021-06-[address] [facility] Housing Unable to 00:00:00 00:00:00 Medical Center Pay Cigarette 2021-06-12 2021-06-[address] [facility] pack-years 00:00:00 00:00:00 Medical Center Alcohol intake 2021-06-12 2021-06-12 Ex-drinker [facility] es 00:00:00 00:00:00 (finding) Medical Center History SDPR 2021-06-12 2021-06-[address] [facility] Housing Places 00:00:00 00:00:00 Medical Ce nter Lived History [facility] 2021-06-12 2021-06-12 2 [facility] Housing Homeless 00:00:00 00:00:00 Medical Center Last Year Cigarettes smoked 2021-06-12 2021-06-12 JEAN CLAUDE [facility] current (pack per 00:00:00 00:00:00 Medical Center day) - Reported Sex Assigned At [birth year] [facility] Tisha rocas 00:00:00 00:00:00 [facility] Center Smoking Status Start Date Stop Date Source Tobacco smoking consumption [facility] unknown Branch Current every day smoker 2021-06-12 00:00:00 [facility] Medications Ordered Filled Start Stop Current Ordering Indication Dosage Frequency Signature Comments Components Source Medication Medication Date Date Medication? Clinician (SIG) Name Name No known No No known Unive rs medications 10-24 medication it y of 13:54: s [address] Branch SERTraline Yes 100mg Take 100 Un phil 100 mg 8-29 mg by ity of tablet 13:07: mouth. [address] Branch metFORMIN Yes 1000mg Take 1,000 Univers 500 mg 24 8-29 mg by ity of hr tablet 13:07: mouth. [address] Branch lurasidone Yes 80mg Take 80 mg U nivers 80 mg 8-29 by mouth. ity of tablet 13:07: [address] Branch Cholecalcif Yes 2000U Take 2,000 Univers lissette, 8-29 Units by ity of Vitamin D3, 13:07: mouth. [facility] s 50 mcg Medical (2,000 Branch unit) tablet buPROPion Yes 300mg Take 300 Uni vers XL 300 mg 8-29 mg by ity of 24 hr 13:07: mouth. [place] [address] Medical Branch amLODIPine Yes 5mg Take 5 mg Un phil 5 mg tablet 8-29 by mouth. ity of 13:07: [address] Branch atorvastati Yes 20mg Take 20 mg Univers n 40 mg 8-29 by mouth. ity of tablet 13:07: [address] Branch albuterol Yes 1{puff} Inhale 1 U nivers 90 8-29 Puff. ity of mcg/actuati 13:07: [place] on inhaler [address] [place] [address] Branch SERTraline Yes 100mg Take 100 Un phil 100 mg 8-29 mg by ity of tablet 13:07: mouth. [address] metFORMIN Yes 1000mg Take 1,000 Univers 500 mg 24 8-29 mg by ity of hr tablet 13:07: mouth. [address] lurasidone Yes 80mg Take 80 mg U nivers 80 mg 8-29 by mouth. ity of tablet 13:07: [address] Cholecalcif Yes 2000U Take 2,000 Univers lissette, 8-29 Units by ity of Vitamin D3, 13:07: [place]. [place] [address] [place] [address] (2,000 Branch unit) tablet buPROPion Yes 300mg Take 300 Uni vers XL 300 mg 8-29 mg by ity of 24 hr 13:07: mouth. [address] amLODIPine Yes 5mg Take 5 mg Un phil 5 mg tablet 8-29 by mouth. ity of 13:07: [address] atorvastati Yes 20mg Take 20 mg Univers n 40 mg 8-29 by mouth. ity of tablet 13:07: [address] albuterol Yes 1{puff} Inhale 1 U nivers 90 8-29 Puff. ity of mcg/actuati 13:07: [place] on inhaler [address] [place] [address] Branch gabapentin Yes TAKE 1 Unive rs 100 mg 6-27 CAPSULE BY ity of capsule 00:00: MOUTH [place] 00 EVERY DAY Medical AT BEDTIME [place] NEEDED FOR PAIN gabapentin 0 Yes TAKE 1 Unive rs 100 mg 6-27 CAPSULE BY ity of capsule 00:00: MOUTH [place] 00 EVERY DAY Medical AT BEDTIME [place] NEEDED FOR PAIN albuterol 0 Yes 1{puff} Inhale [address] HFA 4-21 puff by Lukes (VENTOLIN 12:17: mouth via Med ical HFA) 90 02 inhaler Center mcg/actuati every 6 on inhaler (six) hours as needed for Wheezing or Shortness of Breath. amLODIPine 0 Yes 5mg QD Take [address] (NORVASC) 5 4-21 by mouth Luke s MG tablet 12:17: daily. Medica l 02 [place] atorvastati Yes 20mg QD Take [address] n (LIPITOR) 4-21 by mouth Luke s 40 MG 12:17: nightly. Medical tablet 02 Center buPROPion Yes 300mg QD Take [address] (WELLBUTRIN 4-21 mg by Lukes XL) 300 MG 12:17: mouth Medica l 24 hr 02 daily. Center tablet cholecalcif Yes 2000U QD Take 2,[address] lissette, 4-21 Units by Lukes vitamin D3, 12:17: mouth Medic al 2,000 unit 02 daily. [place] Tab omega-3 Yes 2g QD Take [address] fatty acids 4-21 by mouth Luke s 1,000 mg 12:17: daily. Medical Cap 02 Center losartan Yes 50mg QD Take [address] (COZAAR) 50 4-21 by mouth Luke s MG tablet 12:17: daily. Medica l 02 [place] lurasidone Yes 80mg QD Take [address] (LATUDA) 80 4-21 by mouth Luke s mg Tab 12:17: daily. Medical 02 [place] metFORMIN Yes 1000mg Take 1,[address] (GLUMETZA) 4-21 mg by Lukes 500 MG 12:17: mouth 2 Medical (MOD) 24 hr 02 (two) Center tablet times daily with breakfast and dinner. sertraline Yes 100mg QD Take [address] (ZOLOFT) 4-21 mg by Lukes 100 MG 12:17: mouth Medical tablet 02 daily. [place] aspirin 81 0 Yes 81mg QD Take [address] MG chewable 4-21 by mouth Luke s tablet 12:17: daily. Medical 02 [place] cyanocobala Yes 1000ug QD Take [address] min, 4-21 tablet Lukes vitamin 00:00: (1,000 mcg Medi nola B-12, 1000 00 total) by Cent er MCG tablet mouth daily. folic acid Yes 1mg QD Take 1 [facility]I [facility] t (FOLVITE) 1 4-21 tablet (1 Jose Guadalupe es MG tablet 00:00: mg total) Med ical 00 by mouth Center daily. foLIC acid 0 Yes 1mg Take 1 mg Un phil 1 mg tablet 4-21 by mouth. ity of 00:00: [address] vitamin 2021-0 Yes 1000ug Take 1,000 Un phil B-12 1,000 4-21 mcg by ity of mcg tablet 00:00: mouth. [address] foLIC acid 2021-0 Yes 1mg Take 1 mg Un phil 1 mg tablet 4-21 by mouth. ity of 00:00: [address] vitamin 2021-0 Yes 1000ug Take 1,000 Un phil B-12 1,000 4-21 mcg by ity of mcg tablet 00:00: mouth. [address] Vital Signs Vital Name Observation Time Observation Value Comments Source Systolic blood 2021-10-21 133 mm[Hg] University of pressure 18:06:00 [facility] Diastolic blood 2021-10-21 82 mm[Hg] Dike o f pressure 18:06:00 [facility] Heart rate 2021-10-21 84 /min [facility] 18:06:00 [facility] Body height 2021-10-21 167.6 cm [facility] 18:06:00 [facility] Body weight 2021-10-21 90.719 kg pt reported, [facility] 18:06:00 wheel chair [facility] BMI 2021-10-21 32.28 kg/m2 [facility] 18:06:00 [facility] Oxygen saturation 2021-10-21 95 /min [facility] in Arterial blood 18:06:00 [facility] by Pulse oximetry [place] HEIGHT 2021-06-12 167.6 cm 18:04:00 WEIGHT 2021-06-12 94.348 kg 18:04:00 HEIGHT 2021-06-12 167.6 cm 18:04:00 WEIGHT 2021-06-12 94.348 kg 18:04:00 HEIGHT 2021-06-12 167.6 cm 18:04:00 WEIGHT 2021-06-12 94.348 kg 18:04:00 Systolic blood 2021-06-13 141 mm[Hg] [facility] pressure 07:33:00 [facility] Diastolic blood 2021-06-13 74 mm[Hg] [facility] pressure 07:33:00 [facility] Heart rate 2021-06-13 85 /min [facility] 07:33:00 [facility] Body temperature 2021-06-13 35.72 Katerine [facility] St Brillion s 07:33:00 [facility] Respiratory rate 2021-06-13 18 /min [facility] St ke s 07:33:00 [facility] Oxygen saturation 2021-06-13 96 /min [facility] Arterial blood 07:33:00 Medical nter by Pulse oximetry Body height 2021-06-12 167.6 cm [facility] 18:04:00 [facility] Body weight 2021-06-12 94.348 kg [facility] 18:04:00 [facility] BMI 2021-06-12 33.57 kg/m2 [facility] 18:04:00 [facility] Procedures Procedure Date / Time Performing Clinician Source Performed MR BRAIN WO CONTRAST 2021-10-31 17:21:49 [facility] REFERRAL- 2021-09-22 05:01:00 Doctor Unassigned, No [facility] REQUEST/RESPONSE Name [facility] Branch CBC W/PLT COUNT & AUTO 2021-06-13 09:50:00 Eleanor [facility] DIFFERENTIAL [facility] BASIC METABOLIC PANEL 2021-06-13 09:50:00 [facility] HEMOGLOBIN A1C 2021-06-13 09:50:00 Chanel Belle [facility] LIPID PANEL 2021-06-13 09:50:00 Yoshi Buchanan [facility] CBC W/PLT COUNT & AUTO 2021-06-13 09:50:00 Angelita [facility] DIFFERENTIAL [facility] POCT-GLUCOSE METER 2021-06-13 07:34:[address] [facility] VITAMIN B12 AND FOLATE 2021-06-13 04:26:00 Eleanor [facility] MRA HEAD WITHOUT IV 2021-06-12 21:05:00 Evens Webster [facility] uk Medical CONTRAST [facility] MRA NECK WITHOUT IV 2021-06-12 21:05:00 Eleanor Evens [facility] MR BRAIN WITHOUT IV 2021-06-12 20:45:00 AngelitaEvens zazueta [facility] POCT-GLUCOSE METER 2021-06-12 16:45:[address] [facility] EKG-SCANNED 2021-06-12 00:00:00 Provider, [facility] Medical Scanning Center Plan of Care Planned Activity Planned Date Details Comments Source Future Scheduled 2024-06-13 Lipid panel (procedure) [facility] Test 00:00:00 [code = 69776696] Medical Ce nter Future Scheduled 2021-10-24 INFLUENZA VACCINE (#1) [facility] 00:00:00 [code = INFLUENZA Medical Ce nter VACCINE (#1)] Future Scheduled 2021-02-[address] [facility] Test 00:00:00 (12+) [code = Medical Center DEPRESSION SCREENING (12+)] Future Scheduled 2010 Screening for malignant [facility] Test 00:00:00 neoplasm of lung Medical Mickey ter (procedure) [code = 378198257] Future Scheduled 2010 SHINGLES VACCINES ([address] [facility] Test 00:00:00 2) [code = SHINGLES Medical Center VACCINES (1 of 2)] Future Scheduled 1979 DTAP/TDAP/TD VACCINES [facility] Test 00:00:00 (1 - Tdap) [code = Medical C enter DTAP/TDAP/TD VACCINES (1 - Tdap)] Future Scheduled 1978 HEPATITIS C SCREENING [facility] Test 00:00:00 [code = HEPATITIS C Medical Center SCREENING] Future Scheduled [address] [facility] Test 00:00:00 0-64 YRS (1 - PCV) Medical C enter [code = PNEUMOCOCCAL VACCINE 0-64 YRS (1 - PCV)] Future Scheduled 1960 COVID-19 VACCINE (#1) [facility] Test 00:00:00 [code = COVID-[address] VACCINE (#1)] Future Scheduled 1960 CT Colonography (combo) [facility] Test 00:00:00 [code = CT Colonography Medi nola Center (combo)] Future Scheduled 1960 Screening for malignant [facility] Test 00:00:00 neoplasm of colon Medical Ce nter (procedure) [code = 706657032] Future Scheduled 1960 Screening for malignant [facility] Test 00:00:00 neoplasm of colon Medical Ce nter (procedure) [code = 294830481] Future Scheduled 1960 Screening for malignant [facility] Test 00:00:00 neoplasm of colon Medical Ce nter (procedure) [code = 927444120] Future Scheduled 1960 Screening for malignant [facility] Test 00:00:00 neoplasm of colon Medical Ce nter (procedure) [code = 672146788] Future Scheduled 1960 Sigmoidoscopy [code = [facility] Test 00:00:00 Sigmoidoscopy] Medical Anya swenson Encounters Start End Encounter Admission Attending Care Care Encounter Source Date/Time Date/Time Type Type Clinicians Facility Department ID 2021-11-25 2021-11-25 Outpatient RAUL OLSON [facility] [id number] Univers 09:20:00 09:20:00 RAUL CHONG [facility] 2021-10-31 2021-10-31 Outpatient RAUL OLSON [facility] [id number] Univers 11:08:45 23:59:00 RAUL CHONG parth [facility] 2021-10-31 2021-10-31 [facility] [id number] Univers 11:08:45 23:59:00 Encounter Raul Deleon PETTIGREW [id number] ity [facility] [id number] [place] [facility] [id number] [facility] 804 Branch 2021-10-21 2021-10-21 Office Castillo [facility] [id number] Univers 13:00:00 14:14:25 Visit Raul [facility] [id number] ity [facility] [id number] Daivd as LATOYA?BLEA [id number] [place] [address] MEDICAL OFFICE BUILDING 2021-10-21 2021-10-21 Outpatient RAUL OLSON [facility] [id number] Univers 13:00:00 14:14:25 RAUL CHONG parth [facility] 2021-09-30 2021-09-30 Outpatient RAUL OLSON [facility] [id number] Univers 11:00:00 11:00:00 RAUL CHONG parth [facility] 2021-09-22 2021-09-22 Orders Doctor LORENA [id number] [facility] 00:00:00 00:00:00 Only Unassigned, MICHELLE [id number] ity of [place] [facility] [id number] David as [id number] [address] 2021-06-12 2021-06-13 Hospital [facility] [id number] 16:44:00 12:16:00 Encounter [facility] 2021-06-12 2021-06-13 Outpatient ELEANOR [facility] Neurology [id number] [facility] 16:44:00 12:16:00 EVENS 2021-06-12 2021-06-12 Travel [facility] [id number] [facility] St 00:00:00 00:00:00 [facility] Results Test Description Test Time Test Comments [...] GFR IS NOT APPLICABLE FOR DIALYSIS PATIENTS. Torpedo Shooter ID - DSENSONOperator ID - DSENSONOperator ID - DSENSONOperator ID - DSENSONOperator ID - DSENSONOperator ID - DSENSONOperator ID - DSENSONOperator ID - DSENSONOperator ID - DSENSONOperator ID - DSENSONLIPID [id number] 10:14:39 Test Item Value Reference Range Interpretation Comments TRIGLYCERIDES (BEAKER) (test code = 131 mg/dL 540) CHOLESTEROL (BEAKER) (test code = 126 mg/dL 631) HDL CHOLESTEROL (BEAKER) (test code 39 mg/dL = 976) LDL CHOLESTEROL CALCULATED (BEAKER) 61 mg/dL (test code = 633) Triglyceride Reference Range: Low Risk <150 Borderline 150-199 High Risk 200-499 Very High Risk >=500Cholesterol Reference Range: Low Risk <200 Borderline 200-239 High Risk >240HDL Cholesterol Reference Range: Low Risk >=60 High Risk <40LDL Cholesterol Reference Range: Optimal <100 Near Optimal 100-129 Borderline 130-159 High 160-189 Very High >=190 Torpedo Shooter ID - DSENSONOperator ID - DSENSONOperator ID - DSENSONOperator ID - DSENSONOperator ID - DSENSONOperator ID - DSENSONHEMOGLOBIN [id number] 10:05:35 Test Item Value Reference Range Interpretation Comments HEMOGLOBIN A1C (BEAKER) (test code = 4.8 % 4.3-6.1 368) Torpedo Shooter ID - [id number] W/PLT COUNT & AUTO [id number] 09:58:48 Test Item Value Reference Range Interpretation [...] H PERCENT (BEAKER) (test code = 2801) POC-Glucose [id number] 07:46:05 Test Item Value Reference Range Interpretation Comments POC-Glucose Meter (test 86 mg/dL 70-110 : TE STED AT [facility] code = 1538) [facility] [address]: Torpedo Shooter/Techni berry ID = [id number] for Hanh Burnham Lab Interpretation (test Normal code = 91188-6) [facility] [id number] 07:46:05 Test Item Value Reference Range Interpretation Comments POC-GLUCOSE METER 86 mg/dL 70-110 : TESTED A T [facility] [address] (BEAKER) (test code = [address]) [facility] 77 478: Torpedo Shooter/Techni berry ID = [id number] for Hanh De Dios VITAMIN B12 AND [id number] 06:53:39 Test Item Value Reference Range Interpretation Comments VITAMIN B12 (BEAKER) 311 pg/mL 211-911 (test code = 774) FOLATE (BEAKER) 3.60 ng/mL See_Comment L [Automated message] (test code = 362) The system which generated this result transmitted ref erence range: >=5.4. T he reference range was not used to interpr et this result as normal/abnormal . Torpedo Shooter ID - [id number] ID - DSENSONMR, MRA, BRAIN, WITHOUT CONTRAST 2021-06-13 02:26:00Unlisted Reason for Exam - Click Yes and Enter Reason Below- >YesUnlisted Reason for Exam->[facility] 1960 Sex: MFINAL [...] are patent. Right P1 segment of the APPAREL PATTERNMAKER is hypoplastic with like morphology. P2 segments [...] central pontine punctate infarcts. Signed: Padilla Damon [facility] Verified Date/Time: 06/13/2021 02:26:38 MR, MRA, NECK, WITHOUT IV [id number] 02:26:00Unlisted Reason for Exam - Click Yes and Enter Reason Below->YesUnlisted Reason for Exam->[facility] 1960 Sex: MFINAL [...] are patent. Right P1 segment of the APPAREL PATTERNMAKER is hypoplastic with like morphology. P2 segments [...] Verified Date/Time: 06/13/2021 02:26:38 MR, BRAIN, WITHOUT [id number] 02:26:00Unlisted Reason for Exam - Click Yes and Enter Reason Below->YesUnlisted Reason for Exam->[facility] : 1960 Sex: [...] are patent. Right P1 segment of the APPAREL PATTERNMAKER is hypoplastic with like morphology. P2 segments [...] Damon MDReport Verified Date/Time: 06/13/2021 02:26:38 POCT-GLUCOSE [id number] 16:56:55 Test Item Value Reference Range Interpretation Comments POC-GLUCOSE METER 84 mg/dL 70-110 : TESTED A T [facility] 131 ([facility]) (test code = [address], 1538) [facility] 77 478: Torpedo Shooter/Techni berry ID = [id number] for Hanh De Dios
[2021-11-23 11:17] LABS: Albumin 3.9 g/dL (3.4-5.0); Bilirubin Total 0.4 mg/dL (0.2-1.0); Magnesium 1.8 mg/dL (1.8-2.4); Potassium 4.4 mmol/L (3.5-5.1); Protein, Total 7.7 g/dL (6.4-8.2)
--- NOTE | 2021-11-23 11:42 | RAD REPORT ---
EXAM DESCRIPTION: RAD - Chest Single View - 11/23/2021 11:19 am CLINICAL HISTORY: Weakness, fall, COPD COMPARISON: Portable 06/12/2021 TECHNIQUE: AP portable chest image was obtained 11/23/2021 11:19 am . FINDINGS: No pulmonary contusion or acute lung parenchymal process seen. The interstitial pattern ma tches comparison. Heart and vasculature are normal. No measurable pleural effusion and no pneumothorax. No acute bony abnormality seen. No acute aortic findings suspected. IMPRESSION: No acute cardiopulmonary process. No significant change from comparison study.
[2021-11-23] MEDS ORDERED: ADENOSINE 6 MG/ 2ML VIAL IV ONE (13:42)
[2021-11-23 13:46] LABS: Urine Blood 1+ (Negative); Urine Glucose Negative (Negative); Urine Protein Negative (Negative)
[2021-11-23 14:00] LABS: Urine Bacteria <20 /HPF (<20); Urine RBC <5 /HPF (None Seen)
--- NOTE | 2021-11-23 14:04 | RAD REPORT ---
EXAM DESCRIPTION: CT - Head Brain Wo Cont - 11/23/2021 1:50 pm CLINICAL HISTORY: general weakness COMPARISON: Head Brain Wo Cont dated 10/14/2021 TECHNIQUE: Axial 5 mm thick images of the head were obtained without IV contrast. All CT scans are performed using dose optimization technique as appropriate and may include automated exposure control or mA/KV adjustment according to patient size. FINDINGS: No intracranial hemorrhage, mass, edema or shift of mid-line structures. No acute infarcti on changes seen. No abnormal extra-axial fluid collections. Atrophy changes are present similar to re cent comparison. Ventricles remain in proportion to volume loss. Patchy chronic ischemic changes are present. Mastoid air cells and visualized portions of the paranasal sinuses are clear. No acute bony findings. IMPRESSION: Negative non-contrast CT head examination for acute finding. No significant change from comparison.
--- NOTE | 2021-11-23 14:26 | ER ---
Nurse's Notes [facility] Name: Say Olivera Age: 61 yrs Sex: Male : 1960 Arrival Date: 11/23/2021 Time: 10:03 Bed 5 Private MD: Diagnosis: Muscle weakness (generalized);Difficulty in walking, not elsewhere classified Presentation: 11/23 10:03 Chief complaint: EMS states: generalized weakness that has increased gradually. EMS aa5 reports hx of CVA approximately 2 months ago. EMS reports pt fell yesterday, negative head injury. EMS reports pt was able to stand today but lower extremities were very unsteady and weak. 10:03 Coronavirus screen: At this time, the client does not indicate any symptoms associated aa5 with coronavirus-19. Ebola Screen: Patient denies travel to an Ebola-affected area in the 21 days before illness onset. Risk Assessment: Do you want to hurt yourself or someone else? Patient reports no desire to harm self or others. Onset of symptoms was 2021. Care prior to arrival: Glucose check: 87. 10:03 Acuity: PIERRE 2 aa5 10:03 Method Of Arrival: EMS: [facility] aa5 10:03 Initial Sepsis Screen: Does the patient meet any 2 criteria? No. Patient's initial mb9 sepsis screen is negative. Does the patient have a suspected source of infection? No. Patient's initial sepsis screen is negative. Historical: - Allergies: 10:04 shrimp/shellfish; aa5 10:04 thorazine; aa5 10:04 yellow dye #5; aa5 - Home Meds: 10:04 amlodipine oral [Active]; atorvastatin Oral [Active]; sertraline Oral [Active]; mb9 Metformin Oral [Active]; lurasidone Oral [Active]; losartan Oral [Active]; Fish Oil Oral [Active]; cholecalciferol (vitamin D3) Oral [Active]; Bupropion Oral [Active]; - PMHx: 10:04 Cerebrovascular accident; COPD; Diabetes - IDDM; High Cholesterol; Hypertension; aa5 polycythemia vera; schizoaffective; - Immunization history:: Client reports receiving the 2nd dose of the Covid vaccine. - Social history:: Smoking status: Patient reports the use of cigarette tobacco products, smokes three packs cigarettes per day. Screenin:04 Abuse screen: Denies threats or abuse. mb9 10:04 Nutritional screening: No deficits noted. Tuberculosis screening: No symptoms or risk mb9 factors identified. Fall Risk Secondary diagnosis (15 points) impaired mobility, CVA, IV access (20 points). Gait- Impaired (20 pts.). Assessment: 10:05 General: Appears in no apparent distress. Behavior is calm, cooperative, appropriate mb9 for age. Pain: Denies pain. Neuro: Level of Consciousness is awake, alert, obeys commands, Oriented to person, place, time, situation, Appropriate for age [employer] are equal bilaterally Weakness in bilateral leg(s) Gait is unsteady, Speech is normal, Facial symmetry appears normal, Pupils are Pupil Size: 6 mm sluggish. Cardiovascular: Heart tones S1 S2 present Pulses are all present. are 2+ in right radial artery, right posterior tibial artery, right dorsalis pedis artery, left radial artery, left posterior tibial artery and left dorsalis pedis artery Rhythm is regular. Respiratory: Breath sounds are clear bilaterally. GI: No signs and/or symptoms were reported involving the gastrointestinal system. : No signs and/or symptoms were reported regarding the genitourinary system. EENT: Oral mucosa is dry. Poor dentition noted. Derm: Skin is pink, warm \T\ dry. Musculoskeletal: Range of motion: intact in all extremities, Reports since Pt reports weakness in the upper and lower extremities bilaterally. Pt states the weakness is progressively getting worse over the past 2 months. Pt is able to stand but is unsteady on the feet and requires a two person assist. . 11:06 Neuro: Level of Consciousness is awake, alert, obeys commands, Oriented to person, mb9 place, time, situation, Appropriate for age [employer] are equal bilaterally Weakness in bilateral arm(s) leg(s) Gait is unsteady, Speech is normal. Respiratory: Breath sounds are clear bilaterally. Derm: Skin is pink, warm \T\ dry. Musculoskeletal: Range of motion: intact in all extremities. 12:29 Pain: Denies pain. Neuro: Level of Consciousness is awake, alert, obeys commands, mb9 Oriented to person, place, time, situation, Appropriate for age. Neuro: Weakness in bilateral arm(s) leg(s) Gait is unsteady. Respiratory: Breath sounds are clear bilaterally. Derm: Skin is pink, warm \T\ dry. Musculoskeletal: Range of motion: intact in all extremities. 14:40 Pain: Denies pain. Neuro: Level of Consciousness is awake, alert, obeys commands, mb9 Oriented to person, place, time, situation, Appropriate for age. Respiratory: Breath sounds are clear bilaterally. Derm: Skin is pink, warm \T\ dry. Musculoskeletal: Range of motion: intact in all extremities, Reports weakness in right arm, left arm, right leg and left leg. Vital Signs: 10:03 BP 127 / 83; Pulse 91; Resp 20; Temp 98.9(O); Pulse Ox 98% on R/A; Weight 90.72 kg (R); mb9 Height 5 ft. 6 in. (167.64 cm) (R); Pain 0/10; 10:05 BP 120 / 79; Pulse 90; Resp 22; Pulse Ox 98% on R/A; Pain 0/10; mb9 10:35 BP 132 / 87 Supine; Pulse 92; mb9 10:37 BP 136 / 86 Sitting; Pulse 92; mb9 10:39 BP 120 / 79 Standing; Pulse 96; mb9 11:32 BP 139 / 85; Pulse 89; Resp 20; Pulse Ox 98% on R/A; Pain 0/10; mb9 12:30 BP 137 / 91; Pulse 98; Resp 22; Pulse Ox 98% on R/A; Pain 0/10; mb9 13:08 BP 138 / 81; Pulse 88; Resp 20; Pulse Ox 98% on R/A; Pain 0/10; mb9 14:41 BP 142 / 80; Pulse 91; Resp 20; Pulse Ox 98% on R/A; mb9 10:03 Body Mass Index 32.28 (90.72 kg, 167.64 cm) mb9 10:39 Pt required 2 person assistance when standing. Dr. Curiel notified of orthostatics. mb9 ED Course: 10:03 Patient arrived in ED. eb 10:03 Arm band placed on. aa5 10:03 Bed in low position. Call light in reach. Side rails up X 1. mb9 10:08 Triage completed. aa5 10:13 Alexia Curiel MD is Attending Physician. sd2 10:17 Regina Cardenas RN is Primary Nurse. mb9 10:28 Inserted saline lock: 20 gauge in right forearm, using aseptic technique. Blood mb9 collected. 10:28 Troponin High Sensitivity Sent. mb9 10:28 Magnesium Sent. mb9 10:28 CMP Sent. mb9 10:28 CBC with Diff Sent. mb9 10:30 EKG done, by ED staff, reviewed by Alexia Curiel MD. mb9 10:53 No provider procedures requiring assistance completed. mb9 14:41 IV discontinued, intact, bleeding controlled, No redness/swelling at site. Pressure mb9 dressing applied. Administered Medications: No medications were administered Medication: 10:05 VIS not applicable for this client. mb9 Outcome: 14:25 Discharge ordered by . sd2 14:54 Discharged to home via wheelchair. mb9 14:54 Condition: stable 14:54 Discharge instructions given to patient, family, Instructed on discharge instructions, follow up and referral plans. Demonstrated understanding of instructions, follow-up care. 14:55 Patient left the ED. mb9 Signatures: Suzette Cho RN RN aa5 Renetta Esteves Stephanie, MD MD sd2 Regina Cardenas RN RN mb9 Corrections: (The following items were deleted from the chart) 14:40 10:05 Neuro: Level of Consciousness is awake, alert, obeys commands, Oriented to aa5 person, place, time, situation, Appropriate for age [employer] are equal bilaterally Weakness in bilateral leg(s) Gait is unsteady, Speech is normal, Facial symmetry appears normal, Pupils are Pupil Size: 6 mm sluggish, mb9
--- NOTE | 2021-11-23 14:26 | EDPHYS ---
Physician Documentation [facility] Name: Say Olivera Age: 61 yrs Sex: Male : 1960 Arrival Date: 11/23/2021 Time: 10:03 Bed 5 Private MD: ED Physician Alexia Curiel HPI: 11/23 10:16 This 61 yrs old Male presents to ER via EMS with complaints of General Weakness. sd2 10:16 61 yo M with hx of CVA presents via EMS with CC of generalized weakness. 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 He was seen at our facility in September with negative CT head and dizziness and difficulty walking that had been ongoing and progressive at that time as well. Pt reports he has been seen by numerous physicians over the past few months including ENT and Neurology and has had MRIs performed. Pt states he was told it could be coming from his brainstem or his neck and is still waiting on the MRI results of one study and is supposed to follow up on the results this upcoming week. He reports continued generalized weakness of both of his lower and upper extremities and decreased sensation to both of his lower extremities. His sister reports that the patient was ambulatory with a cane at a doctors appointment yesterday but then has been unable to ambulate on his own or bear significant weight to his bilateral lower extremities since last night and did have a fall without head injury or LOC. Pt is on daily baby ASA but no blood thinners. Denies any neck or back pain or significant injury or trauma. EMS was called and helped him up but patient refused transport at that time.. Sister has also brought MRI brain report with no acute abnormalities but chronic ischemic changes which was performed 10/31. 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 . Historical: - Allergies: 10:04 shrimp/shellfish; aa5 10:04 thorazine; aa5 10:04 yellow dye #5; aa5 - Home Meds: 10:04 amlodipine oral [Active]; atorvastatin Oral [Active]; sertraline Oral [Active]; mb9 Metformin Oral [Active]; lurasidone Oral [Active]; losartan Oral [Active]; Fish Oil Oral [Active]; cholecalciferol (vitamin D3) Oral [Active]; Bupropion Oral [Active]; - PMHx: 10:04 Cerebrovascular accident; COPD; Diabetes - IDDM; High Cholesterol; Hypertension; aa5 polycythemia vera; schizoaffective; - Immunization history:: Client reports receiving the 2nd dose of the Covid vaccine. - Social history:: Smoking status: Patient reports the use of cigarette tobacco products, smokes three packs cigarettes per day. ROS: 10:16 Constitutional: Negative for fever, chills, and weight loss, Eyes: Negative for injury, sd2 pain, redness, and discharge, ENT: Negative for injury, pain, and discharge, Cardiovascular: Negative for chest pain, palpitations, and edema, Respiratory: Negative for shortness of breath, cough, wheezing. Abdomen/GI: Negative for abdominal pain, nausea, vomiting, diarrhea. Back: Negative for injury and pain, : Negative for dysuria, frequency or hematuria. MS/Extremity: Negative for injury and deformity, Skin: Negative for injury, rash, and discoloration, Neuro: Negative for headache, Positive for numbness and weakness. Exam: 10:16 Constitutional: This is a well developed, well nourished patient who is awake, alert, sd2 and in no acute distress. Head/Face: Normocephalic, atraumatic. Eyes: EOMI, normal conjunctiva bilaterally Chest/axilla: Normal chest wall appearance and motion. Nontender with no deformity. Cardiovascular: Regular rate and rhythm with a normal S1 and S2. No gallops, murmurs, or rubs. 2+ distal pulses. Respiratory: Lungs have equal breath sounds bilaterally, clear to auscultation and percussion. No rales, rhonchi or wheezes noted. No increased work of breathing, no retractions or nasal flaring. Abdomen/GI: Soft, non-tender, with normal bowel sounds. No guarding or rebound. No evidence of tenderness throughout. Back: No spinal tenderness. No costovertebral tenderness. Full range of motion. Skin: Warm, dry with normal turgor. Normal color with no rashes, no lesions, and no evidence of cellulitis. MS/ Extremity: Pulses equal, no cyanosis. Neurovascular intact. Full, normal range of motion. Ambulatory without difficulty. Neuro: Awake and alert, GCS 15, oriented to person, place, time, and situation. Cranial nerves II-XII grossly intact. Motor strength 5/5 in all extremities. Sensory grossly intact. Cerebellar exam normal. 11:07 ECG was reviewed by the Attending Physician. NSR, rate 88, no STEMI criteria, LAFB sd2 present Vital Signs: 10:03 BP 127 / 83; Pulse 91; Resp 20; Temp 98.9(O); Pulse Ox 98% on R/A; Weight 90.72 kg (R); mb9 Height 5 ft. 6 in. (167.64 cm) (R); Pain 0/10; 10:05 BP 120 / 79; Pulse 90; Resp 22; Pulse Ox 98% on R/A; Pain 0/10; mb9 10:35 BP 132 / 87 Supine; Pulse 92; mb9 10:37 BP 136 / 86 Sitting; Pulse 92; mb9 10:39 BP 120 / 79 Standing; Pulse 96; mb9 11:32 BP 139 / 85; Pulse 89; Resp 20; Pulse Ox 98% on R/A; Pain 0/10; mb9 12:30 BP 137 / 91; Pulse 98; Resp 22; Pulse Ox 98% on R/A; Pain 0/10; mb9 13:08 BP 138 / 81; Pulse 88; Resp 20; Pulse Ox 98% on R/A; Pain 0/10; mb9 14:41 BP 142 / 80; Pulse 91; Resp 20; Pulse Ox 98% on R/A; mb9 10:03 Body Mass Index 32.28 (90.72 kg, 167.64 cm) mb9 10:39 Pt required 2 person assistance when standing. Dr. Curiel notified of orthostatics. mb9 MDM: 10:15 Patient medically screened. sd2 10:16 Differential Diagnosis Dehydration, electrolyte abnormality, UTI, PNA, anemia among sd2 others. Data reviewed: vital signs, nurses notes, diagnostic data from outside facility, old medical records. 14:19 Data reviewed: lab test result(s), EKG, radiologic studies. Counseling: I had a sd2 detailed discussion with the patient and/or guardian regarding: the historical points, exam findings, and any diagnostic results supporting the discharge/admit diagnosis, lab results, radiology results, the need for outpatient follow up, to return to the emergency department if symptoms worsen or persist or if there are any questions or concerns that arise at home. ED course: Labs and imaging reviewed. Labs grossly WNCL. Trop neg. EKG with no ischemic changes. CXR with no acute process. UA without infection. CT head with no acute changes. Pt with overall good strength and no focal neuro deficits on exam. Suspect deconditioning since patient's prior CVA as he has not been participating in therapy much. We had a long discussion regarding inpatient rehab and ultimately, the patient has adamantly declined. He states he understands the risks of his recurrent falls which could lead to worse injury and he is willing to accept those risks. He does have home health and home physical therapy being set up by the [facility]. He does have a cane, walker and wheelchair at home as assistive devices. He understands that he may change his mind and return at any time for further evaluation. He has a scheduled follow up appointment with Neurology on Thursday as well. Verbalizes understanding of discharge plan and strict return precautions.. 11/23 10:16 Order name: CBC with Diff 2 11/23 10:16 Order name: CMP 2 11/23 10:16 Order name: Magnesium 2 11/23 10:16 Order name: Troponin High Sensitivity 2 11/23 10:35 Order name: CBC with Automated Diff; Complete Time: 11:30 EDMS 11/23 10:16 Order name: XRAY Chest (1 view) 2 11/23 11:17 Order name: Comprehensive Metabolic Panel; Complete Time: 11:30 EDMS 11/23 11:17 Order name: Troponin High Sensitivity; Complete Time: 11:30 EDMS 11/23 11:17 Order name: Magnesium; Complete Time: 11:30 EDMS 11/23 11:43 Order name: RAD; Complete Time: 12:35 EDMS 11/23 13:47 Order name: Urine Dipstick-Ancillary; Complete Time: 14:10 EDMS 11/23 14:00 Order name: Urine Microscopic Only; Complete Time: 14:10 EDMS 11/23 10:16 Order name: EKG - Nurse/Tech; Complete Time: 10:40 sd2 11/23 10:16 Order name: Orthostatics; Complete Time: 10:40 sd2 11/23 10:17 Order name: IV Saline Lock; Complete Time: 10:28 mb9 11/23 12:47 Order name: CT Head Brain wo Cont 9 11/23 14:05 Order name: CT; Complete Time: 14:10 EDMS Administered Medications: No medications were administered Disposition Summary: 11/23/21 14:25 Discharge Ordered Location: Home sd2 Problem: an ongoing problem sd2 Symptoms: are unchanged sd2 Condition: Stable sd2 Diagnosis - Muscle weakness (generalized) sd2 - Difficulty in walking, not elsewhere classified sd2 Followup: sd2 - With: Private Physician - When: 2 - 3 days - Reason: Recheck today's complaints, Continuance of care, Re-evaluation by your physician Discharge Instructions: - Discharge Summary Sheet sd2 - Fall Prevention in the Home, Adult sd2 - How to Use a Walker sd2 - Weakness sd2 - How to Use a Cane sd2 Forms: - Medication Reconciliation Form sd2 - Thank You Letter sd2 - Antibiotic Education sd2 - Prescription Opioid Use sd2 Signatures: Dispatcher [employer] EDSuzette Fine, RN RN aa5 Alexia Curiel MD MD sd2 Regina Cardenas RN RN mb9 Corrections: (The following items were deleted from the chart) 10:28 10:17 UA MICROSCOPIC+U.LAB.BRZ ordered. EDVT EDMS
[2021-11-23 16:07] VITALS: TEMP 98.9; O2SAT 98
[2021-11-23 16:17] VITALS: BP 142/80
--- NOTE | 2021-11-25 14:15 | EKG ---
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
== END 2021-11-23 14:55 | disposition home or self-care (01) ==
LOC: ER 10:02
DX: M62.81 Muscle weakness (generalized) (principal); R26.2 Difficulty in walking, not elsewhere classified; Z86.73 Personal history of transient ischemic attack (TIA), and cerebral infarction without residual deficits; E11.9 Type 2 diabetes mellitus without complications; E78.00 Pure hypercholesterolemia, unspecified; I10 Essential (primary) hypertension; F17.210 Nicotine dependence, cigarettes, uncomplicated
CPT/HCPCS: 36415; 70450; 71045; 80053; 81003; 81015; 83735; 84484; 85025; 93005; 99284; J0153

== ENCOUNTER 2022-02-20 12:29 | Emergency (ER) | payer OTHER ==
--- OUTSIDE RECORDS SUMMARY | 2022-02-20 12:34 | XMS REPORT | Continuity of Care Document ---
:1960 Author Organization [facility] t Address [address] [place] [address] Care Team Providers Name Role Phone [facility] Primary Care Physician [phone] Doctor Unassigned, [place] Attending Clinician Unavailable TITA BRITT Attending Clinician Unavailable RAUL CHONG Attending Clinician Unavailable RAUL CHONG Attending Clinician Unavailable Raul Chong MD Attending Clinician AMAN JOSEPH Attending Clinician Unavailable AMAN JOSEPH Attending Clinician Unavailable Lab, Ang - Db Attending Clinician Unavailable Evens Webster MD Attending Clinician [phone] EVENS WEBSTER Attending Clinician Unavailable RAUL CHONG Admitting Clinician Unavailable EVENS WEBSTER Admitting Clinician Unavailable Payers Payer Name Policy Type Policy Number Effective Date Expiration Date S ource Problems Condition Condition Condition Status Onset Resolution Last Treating Co mments Source Name Details Category Date Date Treatment Clinician Date 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 4[facility] 00 Center No known No known Disease Unive rs active active ity of problems problems [facility] Allergies, Adverse Reactions, Alerts Allergy Allergy Status Severity Reaction(s) Onset Inactive Treating Comm ents Source Name Type Date Date Clinician CHLORPRO DRUG Active Unknown-Cmnt Un phil UGALDE INGREDI 4-20 ity of 00:00: Medical Branch SHRIMP DRUG Active Anaphylaxis Unive rs INGREDI 4-20 ity of 00:00: Medical Branch SHELLFIS Allergy Active [facility] CONTAINI 00:00: Medical NG 00 Center PRODUCTS SHRIMP Allergy Active [facility] CHLORPRO Allergy Active [facility] MAZINE 4[facility]20 [facility] 00:[facility] Center YELLOW Allergy Active [facility] DYE 4-20 [facility] 00:[facility]: Medical 00 Center Shellfis Propensi Active [facility] ty to 4-20 [facility] Containi adverse 00:00: Medical ng reaction 00 Center Products s Shellfis Propensi Active [facility] ty to 4-20 [facility] Containi adverse 00:00: Medical ng reaction 00 Center Products s Shrimp Propensi Active [facility] ty to 4-20 [facility] adverse 00:00: Medical reaction 00 Center s Chlorpro Propensi Active [facility] mazine ty to 4-20 [facility] adverse 00:00: Medical reaction 00 Center s Yellow Propensi Active [facility] Dye ty to 4-20 [facility] adverse 00:00: Medical reaction 00 Center s LISINOPR DRUG Active COUGH 2017- Univers [place] INGREDI 4-20 ity of 00:00: [facility] Branch Lisinopr Drug Active Cough 2017- Univers il Allergy 4-20 ity of 00:00: Medical Branch OLANZAPI DRUG Active Other-Cmnt Univ ers NE INGREDI 2-12 ity of 00:00: Medical Branch Olanzapi Drug Active Other - See Uni vers ne Allergy comments 2-12 ity of 00:00: [facility] NO KNOWN Allergy Active [facility] Social History Social Habit Start Date Stop Date Quantity Comments Source History SDOH [facility] Non-[facility] Center Exposure to 2021-11-15 2021-11-25 Not sure University of SARS-CoV-2 (event) 00:00:00 09:05:00 [facility] History SDOH 2021-06-13 2021-06-[address] [facility] Transport Med 00:00:00 00:00:[address] [facility] 2021-06-13 2021-06-[address] [facility] Housing Unable to 00:00:00 00:00:00 Medical Center Pay Cigarette 2021-06-12 2021-06-[address] [facility] [address] [facility] pack-years 00:00:00 00:00:00 [facility] Center Alcohol intake 2021-06-12 2021-06-12 Ex-drinker [facility] St Jose Guadalupe es 00:00:00 00:00:00 (finding) Medical Center History [facility] 2021-06-12 2021-06-[address] [facility] Housing Places 00:00:00 00:00:00 Medical Ce nter Lived History [facility] 2021-06-12 2021-06-[address] [facility] Housing Homeless 00:00:00 00:00:00 Medical Center Last Year Cigarettes smoked 2021-06-12 2021-06-[address] [facility] [address] [facility] current (pack per 00:00:00 00:00:00 Medical Center day) - Reported Sex Ass[birth year] At [birth year] [facility] 00:00:00 00:00:00 [facility] Center Smoking Status Start Date Stop Date Source Tobacco smoking consumption [facility] Current every day smoker 2021-06-12 00:00:00 [facility] Medications Ordered Filled Start Stop Current Ordering Indication Dosage Frequency Signature Comments Components Source Medication Medication Date Date Medication? Clinician (SIG) Name Name No known No No known Unive rs medications 10-24 medication it y of 13:54: s [address] Branch SERTraline Yes 100mg Take 100 Un phil 100 mg 8-29 mg by ity of tablet 13:07: mouth. [place] [address] Medical Branch metFORMIN Yes 1000mg Take 1,000 Univers 500 mg 24 8-29 mg by ity of hr tablet 13:07: mouth. [address] lurasidone Yes 80mg Take 80 mg U nivers 80 mg 8-29 by mouth. ity of tablet 13:07: [address] Branch Cholecalcif Yes 2000U Take 2,000 Univers lissette, 8-29 Units by ity of Vitamin D3, 13:07: mouth. [place] 50 mcg 55 Medical (2,000 Branch unit) tablet buPROPion 2021-0 Yes 300mg Take 300 Uni vers XL 300 mg 8-29 mg by ity of 24 hr 13:07: mouth. [place] tablet Medical Branch amLODIPine 0 Yes 5mg Take 5 mg Un phil 5 mg tablet 8-29 by mouth. ity of 13:07: [place] [address] Medical Branch atorvastati 0 Yes 20mg Take 20 mg Univers n 40 mg 8-29 by mouth. ity of tablet 13:07: [address] Branch albuterol Yes 1{puff} Inhale 1 U nivers 90 8-29 Puff. ity of mcg/actuati 13:07: [place] on inhaler Medical Branch SERTraline Yes 100mg Take 100 Un phil 100 mg 8-29 mg by ity of tablet 13:07: mouth. [address] metFORMIN 0 Yes 1000mg Take 1,000 Univers 500 mg 24 8-29 mg by ity of hr tablet 13:07: mouth. [address] Branch lurasidone Yes 80mg Take 80 mg U nivers 80 mg 8-29 by mouth. ity of tablet 13:07: [address] Branch Cholecalcif 0 Yes 2000U Take 2,000 Univers lissette, 8-29 Units by ity of Vitamin D3, 13:07: mouth. [place] 50 mcg 55 Medical (2,000 Branch unit) tablet buPROPion 0 Yes 300mg Take 300 Uni vers XL 300 mg 8-29 mg by ity of 24 hr 13:07: mouth. [place] [address] Medical Branch amLODIPine 0 Yes 5mg Take 5 mg Un phil 5 mg tablet 8-29 by mouth. ity of 13:07: [address] Branch atorvastati Yes 20mg Take 20 mg Univers n 40 mg 8-29 by mouth. ity of tablet 13:07: [address] Branch albuterol Yes 1{puff} Inhale 1 U nivers 90 8-29 Puff. ity of mcg/actuati 13:07: [place] on inhaler 55 Medical Branch SERTraline 2022-0 Yes 100mg Take 100 Un phil 100 mg 8-29 mg by ity of tablet 13:07: mouth. [address] metFORMIN 2021-0 Yes 1000mg Take 1,000 Univers 500 mg 24 8-29 mg by ity of hr tablet 13:07: mouth. [address] lurasidone 0 Yes 80mg Take 80 mg U nivers 80 mg 8-29 by mouth. ity of tablet 13:07: [address] Cholecalcif 0 Yes 2000U Take 2,000 Univers lissette, 8-29 Units by ity of Vitamin D3, 13:07: [place]. [place] 50 mcg 55 Medical (2,000 Branch unit) tablet buPROPion 0 Yes 300mg Take 300 Uni vers XL 300 mg 8-29 mg by ity of 24 hr 13:07: mouth. [address] amLODIPine Yes 5mg Take 5 mg Un phil 5 mg tablet 8-29 by mouth. ity of 13:07: [address] atorvastati Yes 20mg Take 20 mg Univers n 40 mg 8-29 by mouth. ity of tablet 13:07: [address] albuterol Yes 1{puff} Inhale 1 U nivers 90 8-29 Puff. ity of mcg/actuati 13:07: [place] on inhaler [address] [place] [address] SERTraline Yes 100mg Take 100 Un phil 100 mg 8-29 mg by ity of tablet 13:07: mouth. [address] metFORMIN 2021-0 Yes 1000mg Take 1,000 Univers 500 mg 24 8-29 mg by ity of hr tablet 13:07: mouth. [address] lurasidone 0 Yes 80mg Take 80 mg U nivers 80 mg 8-29 by mouth. ity of tablet 13:07: [address] Cholecalcif 0 Yes 2000U Take 2,000 Univers lissette, 8-29 Units by ity of Vitamin D3, 13:07: mouth. [place] 50 mcg 55 Medical (2,000 Branch unit) tablet buPROPion 2021-0 Yes 300mg Take 300 Uni vers XL 300 mg 8-29 mg by ity of 24 hr 13:07: mouth. [address] amLODIPine Yes 5mg Take 5 mg Un phil 5 mg tablet 8-29 by mouth. ity of 13:07: [address] Branch atorvastati Yes 20mg Take 20 mg Univers n 40 mg 8-29 by mouth. ity of tablet 13:07: [address] Branch albuterol Yes 1{puff} Inhale 1 U nivers 90 8-29 Puff. ity of mcg/actuati 13:07: [place] on inhaler Medical Branch SERTraline Yes 100mg Take 100 Un phil 100 mg 8-29 mg by ity of tablet 13:07: mouth. [address] Branch metFORMIN Yes 1000mg Take 1,000 Univers 500 mg 24 8-29 mg by ity of hr tablet 13:07: mouth. [address] Branch lurasidone Yes 80mg Take 80 mg U nivers 80 mg 8-29 by mouth. ity of tablet 13:07: [address] Branch Cholecalcif Yes 2000U Take 2,000 Univers lissette, 8-29 Units by ity of Vitamin D3, 13:07: mouth. [place] 50 mcg Medical (2,000 Branch unit) tablet buPROPion Yes 300mg Take 300 Uni vers XL 300 mg 8-29 mg by ity of 24 hr 13:07: mouth. [address] Branch amLODIPine Yes 5mg Take 5 mg Un phil 5 mg tablet 8-29 by mouth. ity of 13:07: [address] Branch atorvastati Yes 20mg Take 20 mg Univers n 40 mg 8-29 by mouth. ity of tablet 13:07: [address] Branch albuterol Yes 1{puff} Inhale 1 U nivers 90 8-29 Puff. ity of mcg/actuati 13:07: [place] on inhaler Medical Branch SERTraline Yes 100mg Take 100 Un phli 100 mg 8-29 mg by ity of tablet 13:07: mouth. [address] metFORMIN Yes 1000mg Take 1,000 Univers 500 mg 24 8-29 mg by ity of hr tablet 13:07: mouth. [address] lurasidone 2021-0 Yes 80mg Take 80 mg U nivers 80 mg 8-29 by mouth. ity of tablet 13:07: [address] Cholecalcif 2021-0 Yes 2000U Take 2,000 Univers lissette, 8-29 Units by ity of Vitamin D3, 13:07: mouth. [place] 50 mcg 55 Medical (2,000 Branch unit) tablet buPROPion 2021-0 Yes 300mg Take 300 Uni vers XL 300 mg 8-29 mg by ity of 24 hr 13:07: mouth. [address] Branch amLODIPine 2021-0 Yes 5mg Take 5 mg Un phil 5 mg tablet 8-29 by mouth. ity of 13:07: [address] atorvastati 0 Yes 20mg Take 20 mg Univers n 40 mg 8-29 by mouth. ity of tablet 13:07: [address] albuterol 0 Yes 1{puff} Inhale 1 U nivers 90 8-29 Puff. ity of mcg/actuati 13:07: [place] on inhaler [address] [place] [address] SERTraline 0 Yes 100mg Take 100 Un phil 100 mg 8-29 mg by ity of tablet 13:07: mouth. [address] metFORMIN 2021-0 Yes 1000mg Take 1,000 Univers 500 mg 24 8-29 mg by ity of hr tablet 13:07: mouth. [address] lurasidone 0 Yes 80mg Take 80 mg U nivers 80 mg 8-29 by mouth. ity of tablet 13:07: [address] Cholecalcif 2021-0 Yes 2000U Take 2,000 Univers lissette, 8-29 Units by ity of Vitamin D3, 13:07: mouth. [place] 50 mcg 55 Medical (2,000 Branch unit) tablet buPROPion 2021-0 Yes 300mg Take 300 Uni vers XL 300 mg 8-29 mg by ity of 24 hr 13:07: mouth. [address] Branch amLODIPine 2021-0 Yes 5mg Take 5 mg Un phil 5 mg tablet 8-29 by mouth. ity of 13:07: [address] atorvastati 2021-0 Yes 20mg Take 20 mg Univers n 40 mg 8-29 by mouth. ity of tablet 13:07: [address] Branch albuterol Yes 1{puff} Inhale 1 U nivers 90 8-29 Puff. ity of mcg/actuati 13:07: [place] on inhaler Medical Branch SERTraline Yes 100mg Take 100 Un phil 100 mg 8-29 mg by ity of tablet 13:07: mouth. [address] Branch metFORMIN Yes 1000mg Take 1,000 Univers 500 mg 24 8-29 mg by ity of hr tablet 13:07: mouth. [address] Branch lurasidone Yes 80mg Take 80 mg U nivers 80 mg 8-29 by mouth. ity of tablet 13:07: [address] Branch Cholecalcif Yes 2000U Take 2,000 Univers lissette, 8-29 Units by ity of Vitamin D3, 13:07: [place]. [place] 50 mcg Medical (2,000 Branch unit) tablet buPROPion Yes 300mg Take 300 Uni vers XL 300 mg 8-29 mg by ity of 24 hr 13:07: mouth. [address] Branch amLODIPine Yes 5mg Take 5 mg Un phil 5 mg tablet 8-29 by mouth. ity of 13:07: [address] Branch atorvastati Yes 20mg Take 20 mg Univers n 40 mg 8-29 by mouth. ity of tablet 13:07: [address] albuterol Yes 1{puff} Inhale 1 U nivers 90 8-29 Puff. ity of mcg/actuati 13:07: [place] on inhaler [address] [place] [address] Branch SERTraline Yes 100mg Take 100 Un phil 100 mg 8-29 mg by ity of tablet 13:07: mouth. [address] Branch metFORMIN Yes 1000mg Take 1,000 Univers 500 mg 24 8-29 mg by ity of hr tablet 13:07: mouth. [address] Branch lurasidone Yes 80mg Take 80 mg U nivers 80 mg 8-29 by mouth. ity of tablet 13:07: [address] Cholecalcif Yes 2000U Take 2,000 Univers lissette, 8-29 Units by ity of Vitamin D3, 13:07: mouth. [place] 50 mcg 55 Medical (2,000 Branch unit) tablet buPROPion 2021-0 Yes 300mg Take 300 Uni vers XL 300 mg 8-29 mg by ity of 24 hr 13:07: mouth. [place] [address] Medical Branch amLODIPine 0 Yes 5mg Take 5 mg Un phil 5 mg tablet 8-29 by mouth. ity of 13:07: [address] Branch atorvastati Yes 20mg Take 20 mg Univers n 40 mg 8-29 by mouth. ity of tablet 13:07: [address] Branch albuterol Yes 1{puff} Inhale 1 U nivers 90 8-29 Puff. ity of mcg/actuati 13:07: [place] on inhaler Medical Branch SERTraline 0 Yes 100mg Take 100 Un phil 100 mg 8-29 mg by ity of tablet 13:07: mouth. [address] metFORMIN Yes 1000mg Take 1,000 Univers 500 mg 24 8-29 mg by ity of hr tablet 13:07: mouth. [address] Branch lurasidone Yes 80mg Take 80 mg U nivers 80 mg 8-29 by mouth. ity of tablet 13:07: [address] Cholecalcif Yes 2000U Take 2,000 Univers lissette, 8-29 Units by ity of Vitamin D3, 13:07: mouth. [place] 50 mcg 55 Medical (2,000 Branch unit) tablet buPROPion 0 Yes 300mg Take 300 Uni vers XL 300 mg 8-29 mg by ity of 24 hr 13:07: mouth. [address] Branch amLODIPine Yes 5mg Take 5 mg Un phil 5 mg tablet 8-29 by mouth. ity of 13:07: [address] Branch atorvastati Yes 20mg Take 20 mg Univers n 40 mg 8-29 by mouth. ity of tablet 13:07: [address] albuterol Yes 1{puff} Inhale 1 U nivers 90 8-29 Puff. ity of mcg/actuati 13:07: [place] on inhaler Medical Branch SERTraline 0 Yes 100mg Take 100 Un phil 100 mg 8-29 mg by ity of tablet 13:07: mouth. [address] metFORMIN 2021-0 Yes 1000mg Take 1,000 Univers 500 mg 24 8-29 mg by ity of hr tablet 13:07: mouth. [address] lurasidone 0 Yes 80mg Take 80 mg U nivers 80 mg 8-29 by mouth. ity of tablet 13:07: [address] Cholecalcif 0 Yes 2000U Take 2,000 Univers lissette, 8-29 Units by ity of Vitamin D3, 13:07: mouth. [place] 50 mcg 55 Medical (2,000 Branch unit) tablet buPROPion 2021-0 Yes 300mg Take 300 Uni vers XL 300 mg 8-29 mg by ity of 24 hr 13:07: mouth. [address] amLODIPine 0 Yes 5mg Take 5 mg Un phil 5 mg tablet 8-29 by mouth. ity of 13:07: [address] atorvastati Yes 20mg Take 20 mg Univers n 40 mg 8-29 by mouth. ity of tablet 13:07: [address] albuterol 0 Yes 1{puff} Inhale 1 U nivers 90 8-29 Puff. ity of mcg/actuati 13:07: [place] on inhaler [address] [place] [address] SERTraline 0 Yes 100mg Take 100 Un phil 100 mg 8-29 mg by ity of tablet 13:07: mouth. [address] metFORMIN 2021-0 Yes 1000mg Take 1,000 Univers 500 mg 24 8-29 mg by ity of hr tablet 13:07: mouth. [address] lurasidone 0 Yes 80mg Take 80 mg U nivers 80 mg 8-29 by mouth. ity of tablet 13:07: [address] Cholecalcif 2021-0 Yes 2000U Take 2,000 Univers lissette, 8-29 Units by ity of Vitamin D3, 13:07: mouth. [place] 50 mcg 55 Medical (2,000 Branch unit) tablet buPROPion 2021-0 Yes 300mg Take 300 Uni vers XL 300 mg 8-29 mg by ity of 24 hr 13:07: mouth. [address] Branch amLODIPine 2022-0 Yes 5mg Take 5 mg Un phil 5 mg tablet 8-29 by mouth. ity of 13:07: [address] atorvastati 2021-0 Yes 20mg Take 20 mg Univers n 40 mg 8-29 by mouth. ity of tablet 13:07: [place] [address] Medical Branch albuterol 2021-0 Yes 1{puff} Inhale 1 U nivers 90 8-29 Puff. ity of mcg/actuati 13:07: [place] on inhaler Medical Branch gabapentin 2021-0 Yes TAKE 1 Unive rs 100 mg 6-27 CAPSULE BY ity of capsule 00:00: MOUTH [place] 00 EVERY DAY Medical AT BEDTIME Branch NEEDED FOR PAIN gabapentin 2021-0 Yes TAKE 1 Unive rs 100 mg 6-27 CAPSULE BY ity of capsule 00:00: MOUTH [place] 00 EVERY DAY Medical AT BEDTIME Branch NEEDED FOR PAIN gabapentin 2-0 Yes TAKE 1 Unive rs 100 mg 6-27 CAPSULE BY ity of capsule 00:00: MOUTH [place] EVERY DAY Medical AT BEDTIME Branch NEEDED FOR PAIN gabapentin 2-0 Yes TAKE 1 Unive rs 100 mg 6-27 CAPSULE BY ity of capsule 00:00: MOUTH [place] 00 EVERY DAY Medical AT BEDTIME Branch NEEDED FOR PAIN gabapentin 2-0 Yes TAKE 1 Unive rs 100 mg 6-27 CAPSULE BY ity of capsule 00:00: MOUTH [place] 00 EVERY DAY Medical AT BEDTIME Branch NEEDED FOR PAIN gabapentin 2-0 Yes TAKE 1 Unive rs 100 mg 6-27 CAPSULE BY ity of capsule 00:00: MOUTH [place] 00 EVERY DAY Medical AT BEDTIME Branch NEEDED FOR PAIN gabapentin 2022-0 Yes TAKE 1 Unive rs 100 mg 6-27 CAPSULE BY ity of capsule 00:00: MOUTH 00 EVERY DAY Medical AT BEDTIME Branch NEEDED FOR PAIN gabapentin 2022-0 Yes TAKE 1 Unive rs 100 mg 6-27 CAPSULE BY ity of capsule 00:00: MOUTH [place] 00 EVERY DAY Medical AT BEDTIME Branch NEEDED FOR PAIN gabapentin 2022-0 Yes TAKE 1 Unive rs 100 mg 6-27 CAPSULE BY ity of capsule 00:00: MOUTH [place] 00 EVERY DAY Medical AT BEDTIME Branch NEEDED FOR PAIN gabapentin 2022-0 Yes TAKE 1 Unive rs 100 mg 6-27 CAPSULE BY ity of capsule 00:00: MOUTH [place] 00 EVERY DAY Medical AT BEDTIME Branch NEEDED FOR PAIN gabapentin Yes TAKE 1 Unive rs 100 mg 6-27 CAPSULE BY ity of capsule 00:00: MOUTH [place] 00 EVERY DAY Medical AT BEDTIME Branch NEEDED FOR PAIN gabapentin Yes TAKE 1 Unive rs 100 mg 6-27 CAPSULE BY ity of capsule 00:00: MOUTH [place] 00 EVERY DAY Medical AT BEDTIME Branch NEEDED FOR PAIN albuterol Yes 1{puff} Inhale [address] HFA 4-21 puff by [facility] (VENTOLIN 12:17: mouth via Med ical HFA) 90 02 inhaler Center mcg/actuati every 6 on inhaler (six) hours as needed for Wheezing or Shortness of Breath. amLODIPine Yes 5mg QD Take [address] (NORVASC) 5 4-21 by mouth Luke s MG tablet 12:17: daily. Medica l 02 [place] atorvastati Yes 20mg QD Take 20 mg [...] mouth Medic al 2,000 unit 02 daily. Center Tab omega-3 Yes 2g QD Take [address] [address] fatty acids 4-21 by mouth Luke s 1,000 mg 12:17: daily. Medical Cap 02 Center losartan Yes 50mg QD Take [address] (COZAAR) 50 4-21 by mouth Luke s MG tablet 12:17: daily. Medica l 02 Center lurasidone Yes 80mg QD Take [address] (LATUDA) 80 4-21 by mouth Luke s mg Tab 12:17: daily. Medical 02 Center metFORMIN Yes 1000mg Take 1,[address] (GLUMETZA) 4-21 mg by [facility] 500 MG 12:17: mouth 2 Medical (MOD) 24 hr 02 (two) Center tablet times daily with breakfast and dinner. sertraline Yes 100mg QD Take [address] (ZOLOFT) 4-21 mg by [facility] 100 MG 12:17: mouth Medical tablet 02 daily. Center aspirin 81 Yes 81mg QD Take [address] MG chewable 4-21 by mouth Luke s tablet 12:17: daily. Medical 02 Center albuterol Yes 1{puff} Inhale [address] HFA 4-21 puff by [facility] (VENTOLIN 12:17: mouth via Med ical HFA) 90 02 inhaler Center mcg/actuati every 6 on inhaler (six) hours as needed for Wheezing or Shortness of Breath. amLODIPine Yes 5mg QD Take [address] (NORVASC) 5 4-21 by mouth Luke s MG tablet 12:17: daily. Medica l 02 [place] atorvastati Yes 20mg QD Take [address] n (LIPITOR) 4-21 by mouth Luke s 40 MG 12:17: nightly. Medical tablet 02 Center buPROPion Yes 300mg QD Take [address] (WELLBUTRIN 4-21 mg by [facility] XL) 300 MG 12:17: mouth Medica l 24 hr 02 daily. [place] tablet cholecalcif Yes 2000U QD Take 2,[address] lissette, 4-21 Units by [facility] vitamin D3, 12:17: mouth Medic al 2,000 unit 02 daily. Center Tab omega-3 Yes 2g QD Take [address] fatty acids 4-21 by mouth Luke s 1,000 mg 12:17: daily. Medical Cap 02 Center losartan Yes 50mg QD Take [address] (COZAAR) 50 4-21 by mouth Luke s MG tablet 12:17: daily. Medica l 02 [place] lurasidone Yes 80mg QD Take [address] (LATUDA) 80 4-21 by mouth Luke s mg Tab 12:17: daily. Medical 02 Center metFORMIN Yes 1000mg Take 1,[address] (GLUMETZA) 4-21 mg by [facility] 500 MG 12:17: mouth 2 Medical (MOD) 24 hr 02 (two) Center tablet times daily with breakfast and dinner. sertraline Yes 100mg QD Take [address] (ZOLOFT) 4-21 mg by [facility] 100 MG 12:17: mouth Medical tablet 02 daily. Center aspirin 81 Yes 81mg QD Take [address] MG chewable 4-21 by mouth Luke s tablet 12:17: daily. Medical 02 Center albuterol Yes 1{puff} Inhale [address] HFA 4-21 puff by [facility] (VENTOLIN 12:17: mouth via Med ical HFA) 90 02 inhaler Center mcg/actuati every 6 on inhaler (six) hours as needed for Wheezing or Shortness of Breath. amLODIPine Yes 5mg QD Take [address] (NORVASC) 5 4-21 by mouth Luke s MG tablet 12:17: daily. Medica l 02 [place] atorvastati Yes 20mg QD Take [address] n (LIPITOR) 4-21 by mouth Luke s 40 MG 12:17: nightly. Medical tablet 02 Center buPROPion Yes 300mg QD Take [address] (WELLBUTRIN 4-21 mg by [facility] XL) 300 MG 12:17: mouth Medica l 24 hr 02 daily. [place] tablet cholecalcif Yes 2000U QD Take 2,[address] lissette, 4-21 Units by [facility] vitamin D3, 12:17: mouth Medic al 2,000 unit 02 daily. Center Tab omega-3 Yes 2g QD Take [address] fatty acids 4-21 by mouth Luke s 1,000 mg 12:17: daily. Medical Cap 02 Center losartan Yes 50mg QD Take [address] (COZAAR) 50 4-21 by mouth Luke s MG tablet 12:17: daily. Medica l 02 [place] lurasidone Yes 80mg QD Take [address] (LATUDA) 80 4-21 by mouth Luke s mg Tab 12:17: daily. Medical 02 [place] metFORMIN Yes 1000mg Take 1,[address] (GLUMETZA) 4-21 mg by [facility] 500 MG 12:17: mouth 2 Medical (MOD) 24 hr 02 (two) Center tablet times daily with breakfast and dinner. sertraline 2-0 Yes 100mg QD Take [address] (ZOLOFT) 4-21 mg by [facility] 100 MG 12:17: mouth Medical tablet 02 daily. [place] aspirin 81 2-0 Yes 81mg QD Take [address] MG chewable 4-21 by mouth Luke s tablet 12:17: daily. [facility] 02 [place] foLIC acid 2-0 Yes 1mg Take 1 mg Un phil 1 mg tablet 4-21 by mouth. ity of 00:00: [address] vitamin 2022-0 Yes 1000ug Take 1,000 Un phil B-12 1,000 4-21 mcg by ity of mcg tablet 00:00: mouth. [address] foLIC acid 2022-0 Yes 1mg Take 1 mg Un phil 1 mg tablet 4-21 by mouth. ity of 00:00: [address] vitamin 2022-0 Yes 1000ug Take 1,000 Un phil B-12 1,000 4-21 mcg by ity of mcg tablet 00:00: mouth. [address] foLIC acid 2022-0 Yes 1mg Take 1 mg Un phil 1 mg tablet 4-21 by mouth. ity of 00:00: [address] vitamin 2022-0 Yes 1000ug Take 1,000 Un phil B-12 1,000 4-21 mcg by ity of mcg tablet 00:00: mouth. [address] foLIC acid 2022-0 Yes 1mg Take 1 mg Un phil 1 mg tablet 4-21 by mouth. ity of 00:00: [address] vitamin 2022-0 Yes 1000ug Take 1,000 Un phil B-12 1,000 4-21 mcg by ity of mcg tablet 00:00: mouth. [address] foLIC acid 2022-0 Yes 1mg Take 1 mg Un phil 1 mg tablet 4-21 by mouth. ity of 00:00: [address] vitamin 2022-0 Yes 1000ug Take 1,000 Un phil B-12 1,000 4-21 mcg by ity of mcg tablet 00:00: mouth. [address] foLIC acid 2022-0 Yes 1mg Take 1 mg Un phil 1 mg tablet 4-21 by mouth. ity of 00:00: [place] [facility] vitamin 2022-0 Yes 1000ug Take 1,000 Un phil B-12 1,000 4-21 mcg by ity of mcg tablet 00:00: mouth. [place] [facility] foLIC acid 2022-0 Yes 1mg Take 1 mg Un phil 1 mg tablet 4-21 by mouth. ity of 00:00: [place] [facility] vitamin 2022-0 Yes 1000ug Take 1,000 Un phil B-12 1,000 4-21 mcg by ity of mcg tablet 00:00: mouth. [place] [address] Medical Branch foLIC acid 2022-0 Yes 1mg Take 1 mg Un phil 1 mg tablet 4-21 by mouth. ity of 00:00: [place] [facility] vitamin 2022-0 Yes 1000ug Take 1,000 Un phil B-12 1,000 4-21 mcg by ity of mcg tablet 00:00: mouth. [address] foLIC acid 2022-0 Yes 1mg Take 1 mg Un phil 1 mg tablet 4-21 by mouth. ity of 00:00: [place] [facility] vitamin 2022-0 Yes 1000ug Take 1,000 Un phil B-12 1,000 4-21 mcg by ity of mcg tablet 00:00: mouth. [address] foLIC acid 2022-0 Yes 1mg Take 1 mg Un phil 1 mg tablet 4-21 by mouth. ity of 00:00: [place] [facility] Branch vitamin 2022-0 Yes 1000ug Take 1,000 Un phil B-12 1,000 4-21 mcg by ity of mcg tablet 00:00: mouth. [address] Branch foLIC acid 2022-0 Yes 1mg Take 1 mg Un phil 1 mg tablet 4-21 by mouth. ity of 00:00: [place] [address] Medical Branch vitamin 2022-0 Yes 1000ug Take 1,000 Un phil B-12 1,000 4-21 mcg by ity of mcg tablet 00:00: mouth. [address] foLIC acid 2022-0 Yes 1mg Take 1 mg Un phil 1 mg tablet 4-21 by mouth. ity of 00:00: [place] [address] Medical Branch vitamin 2022-0 Yes 1000ug Take 1,000 Un phil B-12 1,000 4-21 mcg by ity of mcg tablet 00:00: mouth. [place] 00 Medical Branch cyanocobala 2022-0 Yes 1000ug QD Take [address] [facility], 4-21 [facility] 00:00: (1,000 mcg Medi nola B-12, 1000 00 total) by Cent er MCG tablet mouth daily. folic acid 2-0 Yes 1mg QD Take 1 [facility] 1 4-21 tablet (1 [facility] MG tablet 00:00: mg total) Med ical 00 by mouth Center daily. cyanocobala 2022-0 Yes 1000ug QD Take [address] min, 4-21 tablet [facility] vitamin 00:00: (1,000 mcg Medi nola B-12, 1000 00 total) by Cent er MCG tablet mouth daily. folic acid 2021-0 Yes 1mg QD Take 1 [facility] (FOLVITE) 1 4-21 tablet (1 [facility] MG tablet 00:00: mg total) Med ical 00 by mouth Center daily. cyanocobala 2-0 Yes 1000ug QD Take [address] min, 4-21 tablet [facility] vitamin 00:00: (1,000 mcg Medi nola B-12, 1000 00 total) by Cent er MCG tablet mouth daily. folic acid 2021-0 Yes 1mg QD Take 1 [facility] (FOLVITE) 1 4-21 tablet (1 [facility] MG tablet 00:00: mg total) Med ical 00 by mouth Center daily. benztropine 2021-0 Yes 1{tbl} Take 1 Un phil 1 mg tablet 4-19 tablet by ity of 00:00: mouth at [place] [address] bedtime. Medical Branch benztropine 2021-0 Yes 1{tbl} Take 1 Un phil 1 mg tablet 4-19 tablet by ity of 00:00: mouth at [place] [address] bedtime. Medical Branch benztropine 2021-0 Yes 1{tbl} Take 1 Un phil 1 mg tablet 4-19 tablet by ity of 00:00: mouth at [place] [address] bedtime. Medical Branch benztropine 2021-0 Yes 1{tbl} Take 1 Un phil 1 mg tablet 4-19 tablet by ity of 00:00: mouth at [place] [address] bedtime. Medical Branch benztropine 2021-0 Yes 1{tbl} Take 1 Un phil 1 mg tablet 4-19 tablet by ity of 00:00: mouth at [place] [address] bedtime. Medical Branch benztropine 2021-0 Yes 1{tbl} Take 1 Un phil 1 mg tablet 4-19 tablet by ity of 00:00: mouth at [place] [address] bedtime. Medical Branch benztropine 0 Yes 1{tbl} Take 1 Un phil 1 mg tablet 4-19 tablet by ity of 00:00: mouth at [place] [address] bedtime. Medical Branch benztropine 2021-0 Yes 1{tbl} Take 1 Un phil 1 mg tablet 4-19 tablet by ity of 00:00: mouth at [place] [address] bedtime. Medical Branch benztropine 0 Yes 1{tbl} Take 1 Un phil 1 mg tablet 4-19 tablet by ity of 00:00: mouth at [place] [address] bedtime. Medical Branch benztropine 0 Yes 1{tbl} Take 1 Un phil 1 mg tablet 4-19 tablet by ity of 00:00: mouth at [place] [address] bedtime. Medical Branch losartan 50 2021-0 2022- No TAKE ONE U nivers mg tablet 04-13 TABLET BY ity of 00:00: 05:59 MOUTH [place] 00 :00 EVERY Medical MORNING Branch FOR BLOOD PRESSURE losartan 50 2021-0 2022- No TAKE ONE U nivers mg tablet 04-13 TABLET BY ity of 00:00: 05:59 MOUTH [place] 00 :00 EVERY Medical MORNING Branch FOR BLOOD PRESSURE losartan 50 2021-0 2022- No TAKE ONE U nivers mg tablet 04-13 TABLET BY ity of 00:00: 05:59 MOUTH [place] 00 :00 EVERY Medical MORNING Branch FOR BLOOD PRESSURE losartan 50 2021-0 2022- No TAKE ONE U nivers mg tablet 04-13 TABLET BY ity of 00:00: 05:59 MOUTH [place] 00 :00 EVERY Medical MORNING Branch FOR BLOOD PRESSURE losartan 50 2021-0 2022- No TAKE ONE U nivers mg tablet 04-13 TABLET BY ity of 00:00: 05:59 MOUTH [place] 00 :00 EVERY Medical MORNING Branch FOR BLOOD PRESSURE losartan 50 2021-0 2022- No TAKE ONE U nivers mg tablet 205-01 TABLET BY ity of 00:00: 05:59 MOUTH [place] 00 :00 EVERY Medical MORNING Branch FOR BLOOD PRESSURE losartan 50 2021-0 2022- No TAKE ONE U nivers mg tablet 04-13 TABLET BY ity of 00:00: 05:59 MOUTH [place] 00 :00 EVERY Medical MORNING Branch FOR BLOOD PRESSURE losartan 50 2021-0 2022- No TAKE ONE U nivers mg tablet 04-13 TABLET BY ity of 00:00: 05:59 MOUTH [place] 00 :00 EVERY Medical MORNING Branch FOR BLOOD PRESSURE losartan 50 0 2022- No TAKE ONE U nivers mg tablet 04-13 TABLET BY ity of 00:00: 05:59 MOUTH [place] 00 :00 EVERY Medical MORNING Branch FOR BLOOD PRESSURE losartan 50 0 2022- No TAKE ONE U nivers mg tablet 04-13 TABLET BY ity of 00:00: 05:59 MOUTH [place] 00 :00 EVERY Medical MORNING Branch FOR BLOOD PRESSURE Vital Signs Vital Name Observation Time Observation Value Comments Source Systolic blood 2021-11-25 152 mm[Hg] University of pressure 14:08: [facility] Diastolic blood 2021-11-25 95 mm[Hg] University o f pressure 14:08:00 [facility] Heart rate 2021-11-25 98 /min University of 14:08:00 [facility] Body height 2021-11-25 167.6 cm University of 14:08:00 [facility] Body weight 2021-11-25 90.719 kg University of 14:08:00 [facility] BMI 2021-11-25 32.28 kg/m2 University of 14:08:00 [facility] Oxygen saturation 2021-11-25 96 /min [facility] in Arterial blood 14:08:00 [facility] by Pulse oximetry Branch Systolic blood 2021-10-21 133 mm[Hg] University of pressure 18:06:00 [facility] Diastolic blood 2021-10-21 82 mm[Hg] University o f pressure 18:06:00 [facility] Heart rate 2021-10-21 84 /min [place] of 18:06:00 [facility] Body height 2021-10-21 167.6 cm University of 18:06:00 [facility] Body weight 2021-10-21 90.719 kg pt reported, University of 18:06:00 wheel chair [facility] Branch BMI 2021-10-21 32.28 kg/m2 [facility] 18:06:00 [facility] Oxygen saturation 2021-10-21 95 /min [facility] in Arterial blood 18:06:00 [facility] nola by Pulse oximetry Branch HEIGHT 2021-06-12 167.6 cm 18:04:00 WEIGHT 2021-06-12 94.348 kg 18:04:00 HEIGHT 2021-06-12 167.6 cm 18:04:00 WEIGHT 2021-06-12 94.348 kg 18:04:00 HEIGHT 2021-06-12 167.6 cm 18:04:00 WEIGHT 2021-06-12 94.348 kg 18:04:00 Systolic blood 2021-06-13 141 mm[Hg] [facility] pressure 07:33:00 [facility] Diastolic blood 2021-06-13 74 mm[Hg] [facility] pressure 07:33:00 [facility] Heart rate 2021-06-13 85 /min [facility] 07:33:00 [facility] Body temperature 2021-06-[address] 07:33:00 [facility] Respiratory rate 2021-06-13 18 /min [facility] 07:33:00 [facility] Oxygen saturation 2021-06-13 96 /min [facility] St Jose Guadalupe es in Arterial blood 07:33:00 [facility] nter by Pulse oximetry Body height 2021-06-[address] [facility] 18:04:00 [facility] Body weight 2021-06-[address] [facility] 18:04:00 [facility] BMI 2021-06-12 33.57 kg/m2 [facility] 18:04:00 [facility] Procedures Procedure Date / Time Performing Clinician Source Performed AUTHORIZATION FOR 2022-02-02 06:01:00 Doctor Unassigned, No [facility] [place] RELEASE OF PHI Name Medical Branch AUTHORIZATION FOR 2021-12-28 05:01:00 [facility]assigned, [facility] [place] RELEASE OF PHI Name Medical Branch EXTERNAL PROVIDER 2021-12-16 05:01:00 Doctor Unassigned, No [facility] [place] RECORDS Name Medical Branch REFERRAL- 2021-11-27 05:01:00 Doctor Unassigned, No [facility] [place] REQUEST/RESPONSE Name Medical Branch MR BRAIN WO CONTRAST 2021-10-31 17:21:49 Raul Chong [facility] REFERRAL- 2021-09-22 05:01:00 Doctor Unassigned, No Univer [facility] REQUEST/RESPONSE Name Medical Branch CBC W/PLT COUNT & AUTO 2021-06-13 09:50:00 Angelita [facility] DIFFERENTIAL [facility] BASIC METABOLIC PANEL 2021-06-13 09:50:00 [facility] HEMOGLOBIN A1C 2021-06-13 09:50:00 [place], [facility] LIPID PANEL 2021-06-13 09:50:00 Chanel [facility] CBC W/PLT COUNT & AUTO 2021-06-13 09:50:00 Angelita [facility] DIFFERENTIAL [facility] POCT-GLUCOSE METER 2021-06-13 07:34:00 [facility] VITAMIN B12 AND FOLATE 2021-06-13 04:26:00 [facility] MRA HEAD WITHOUT IV 2021-06-12 21:05:00 [facility] MRA NECK WITHOUT IV 2021-06-12 21:05:00 [facility] MR BRAIN WITHOUT IV 2021-06-12 20:45:00 [facility] CONTRAST [facility] POCT-GLUCOSE METER 2021-06-12 16:45:00 [facility] EKG-SCANNED 2021-06-12 00:00:00 Provider, Erna [facility] Medical Scanning [place] Plan of Care Planned Activity Planned Date Details Comments Source Future Scheduled 2024-06-13 Lipid panel (procedure) [facility] 00:[facility]:00 [code = 42196185] Medical Ce nter Future Scheduled 2024-06-13 Lipid panel (procedure) [facility] 00:00:00 [code = 25135953] Medical Ce nter Future Scheduled 2024-06-13 Lipid panel (procedure) [facility] Test 00:00:00 [code = 88460793] Medical Ce nter Future Scheduled 2021-10-24 INFLUENZA VACCINE (#1) [facility] 00:00:00 [code = INFLUENZA Medical Ce nter VACCINE (#1)] Future Scheduled 2021-10-24 INFLUENZA VACCINE (#1) [facility] 00:00:00 [code = INFLUENZA Medical Ce nter VACCINE (#1)] Future Scheduled 2021-10-24 INFLUENZA VACCINE (#1) [facility] 00:00:00 [code = INFLUENZA Medical Ce nter VACCINE (#1)] Future Scheduled 2021-02-[address] [facility] Test 00:00:00 (12+) [code = Medical Center DEPRESSION SCREENING (12+)] Future Scheduled 2021-02-[address] [facility] Test 00:00:00 (12+) [code = Medical Center DEPRESSION SCREENING (12+)] Future Scheduled 2021-02-[address] [facility] Test 00:00:00 (12+) [code = Medical Center DEPRESSION SCREENING (12+)] Future Scheduled 2010 Screening for malignant [facility] Test 00:00:00 neoplasm of lung Medical Mickey ter (procedure) [code = 987238221] Future Scheduled 2010 SHINGLES VACCINES ([address] [facility] Test 00:00:00 2) [code = SHINGLES Medical Center VACCINES (1 of 2)] Future Scheduled 2010 Screening for malignant [facility] Test 00:00:00 neoplasm of lung Medical Mickey ter (procedure) [code = 693742554] Future Scheduled 2010 SHINGLES VACCINES ([address] [facility] Test 00:00:00 2) [code = SHINGLES Medical Center VACCINES (1 of 2)] Future Scheduled 2010 Screening for malignant [facility] Test 00:00:00 neoplasm of lung Medical Mickey ter (procedure) [code = 436273961] Future Scheduled 2010 SHINGLES VACCINES ([address] [facility] Test 00:00:00 2) [code = SHINGLES Medical Center VACCINES (1 of 2)] Future Scheduled 1979 DTAP/TDAP/TD VACCINES [facility] 00:00:00 (1 - Tdap) [code = Medical C enter DTAP/TDAP/TD VACCINES (1 - Tdap)] Future Scheduled 1979 DTAP/TDAP/TD VACCINES [facility] 00:00:00 (1 - Tdap) [code = Medical C enter DTAP/TDAP/TD VACCINES (1 - Tdap)] Future Scheduled 1979 DTAP/TDAP/TD VACCINES [facility] 00:00:00 (1 - Tdap) [code = Medical C enter DTAP/TDAP/TD VACCINES (1 - Tdap)] Future Scheduled 1978 HEPATITIS C SCREENING [facility] 00:00:00 [code = HEPATITIS C Medical Center SCREENING] Future Scheduled 1978 HEPATITIS C [facility]CRE[facility]ING [facility] 00:00:00 [code = HEPATITIS C Medical Center SCREENING] Future Scheduled 1978 HEPATITIS C [facility]CRE[facility]ING [facility] 00:00:00 [code = HEPATITIS C Medical Center SCREENING] Future Scheduled [address] [facility] Test 00:00:00 Counseling and Medical Cente r Screening (12+) [code = Tobacco Cessation Counseling and Screening (12+)] Future Scheduled [address] [facility] Test 00:00:00 0-64 YRS (1 - PCV) Medical C enter [code = PNEUMOCOCCAL VACCINE 0-64 YRS (1 - PCV)] Future Scheduled [address] [facility] Test 00:00:00 0-64 YRS (1 - PCV) Medical C enter [code = PNEUMOCOCCAL VACCINE 0-64 YRS (1 - PCV)] Future Scheduled [address] [facility] Test 00:00:00 0-64 YRS (1 - PCV) Medical C enter [code = PNEUMOCOCCAL VACCINE 0-64 YRS (1 - PCV)] Future Scheduled 1960 COVID-19 VACCINE (#1[facility] 00:00:00 [code = COVID-[address] VACCINE (#1)] Future Scheduled 1960 COVID-19 VACCINE (#1) [facility] 00:00:00 [code = COVID-[address] VACCINE (#1)] Future Scheduled 1960 COVID-19 VACCINE (#1) [facility] 00:00:00 [code = COVID-[address] VACCINE (#1)] Future Scheduled 1960 Screening for malignant [facility] 00:00:00 neoplasm of colon Medical Ce nter (procedure) [code = 911829826] Future Scheduled 1960 Sigmoidoscopy [code = [facility] Sigmoidoscopy] Medical Cente r Future Scheduled 1960 CT Colonography (combo) [facility] 00:00:00 [code = CT Colonography Medi nola Center (combo)] Future Scheduled 1960 Screening for malignant [facility] Test 00:00:00 neoplasm of colon Medical Ce nter (procedure) [code = 408567985] Future Scheduled 1960 Screening for malignant [facility] Test 00:00:00 neoplasm of colon Medical Ce nter (procedure) [code = 396045342] Future Scheduled 1960 Screening for malignant [facility] Test 00:00:00 neoplasm of colon Medical Ce nter (procedure) [code = 406059677] Future Scheduled 1960 Screening for malignant [facility] Test 00:00:00 neoplasm of colon Medical Ce nter (procedure) [code = 462852789] Future Scheduled 1960 Sigmoidoscopy [code = [facility] 00:[facility] Sigmoidoscopy] Medical Cente r Future Scheduled 1960 CT Colonography (combo) [facility] Test 00:00:00 [code = CT Colonography Medi nola Center (combo)] Future Scheduled 1960 CT Colonography (combo) [facility] Test 00:00:00 [code = CT Colonography Medi nola Center (combo)] Future Scheduled 1960 Screening for malignant [facility] Test 00:00:00 neoplasm of colon Medical Ce nter (procedure) [code = 655434925] Future Scheduled 1960 Screening for malignant [facility] Test 00:00:00 neoplasm of colon Medical Ce nter (procedure) [code = 242765633] Future Scheduled 1960 Screening for malignant [facility] Test 00:00:00 neoplasm of colon Medical Ce nter (procedure) [code = 244645400] Future Scheduled 1960 Screening for malignant [facility] Test 00:00:00 neoplasm of colon Medical Ce nter (procedure) [code = 617815058] Future Scheduled 1960 Sigmoidoscopy [code = [facility] 00:[facility] Sigmoidoscopy] Medical Cente r Future Scheduled 1960 Screening for malignant [facility] Test 00:00:00 neoplasm of colon Medical Ce nter (procedure) [code = 316346457] Future Scheduled 1960 Screening for malignant [facility] Test 00:00:00 neoplasm of colon Medical Ce nter (procedure) [code = 263071865] Future Scheduled 1960 Screening for malignant [facility] Test 00:00:00 neoplasm of colon Medical Ce nter (procedure) [code = 529124289] Encounters Start End Encounter Admission Attending Care Care Encounter Source Date/Time Date/Time Type Type Clinicians Facility Department ID 2022-02-02 2022-02-02 Orders Doctor CARRILLO [id number] Univers 00:00:00 00:00:00 Only Unassigned, MICHELLE [id number] ity of [facility] [id number] David as [phone] [place] [address] Branch 2021-12-28 2021-12-28 Orders Doctor CARRILLO [id number] Univers 00:00:00 00:00:00 Only Unassigned, MICHELLE [id number] ity of [facility] [id number] David as [phone] [place] [address] Branch 2021-12-24 2021-12-24 YESY Duncan [id number] Univers 00:00:00 00:00:00 [facility] [id number] ity of [place] [id number] David as LATOYA?BLEA [phone] [address] MEDICAL OFFICE [facility] 2021-12-20 2021-12-20 Outpatient R AMAN JOSEPH [facility] [id number] Univers 14:15:00 14:15:00 AMAN JOSEPH [facility] [place] 2021-12-16 2021-12-16 Orders Doctor LORENA [id number] [id number] Univers 00:00:00 00:00:00 Only Unassigned, MICHELLE [id number] ity of [facility] 4.2.7.2.686 David as [phone] [address] 2021-12-12 2021-12-12 [facility] [id number] Univers 00:00:00 00:00:00 [facility] netomat [id number] it y of [place] 4[place]2.7.2.686 [place] [facility] [phone] [address] 2021-12-04 2021-12-04 Outpatient R RAUL CHONG [facility] [id number] Univers 00:00:00 00:00:00 RAUL CHONG [facility] [place] 2021-11-27 2021-11-27 Telephone Castillo [facility] 1.2.840.114 [id number] Univers 00:00:00 00:00:00 [facility] [id number] ity of [place] 4.2.7.2.686 David as LATOYA?BLEA [phone] [address] OFFICE [facility] 2021-11-27 2021-11-27 Orders Doctor LORENA 1.2.840.114 [id number] Univers 00:00:00 00:00:00 Only Unassigned, MICHELLE [id number] ity of [facility] 4.2.7.2.686 David as [phone] [address] 2021-11-25 2021-11-25 Office [facility] 1.2.840.114 [id number] Univers 09:20:00 09:45:07 Visit [facility] [id number] ity of [place] 4.2.7.2.686 David as LATOYA?BLEA [phone] [place] melecio [place] MEDICAL OFFICE BUILDING 2021-11-25 2021-11-25 Outpatient RAUL OLSON [facility] [id number] Univers 09:20:00 09:45:07 RAUL CHONG [facility] 2021-11-25 2021-11-25 Outpatient RAUL OLSON [facility] [id number] Univers 09:20:00 09:20:00 RAUL CHONG [facility] 2021-10-31 2021-10-31 Outpatient RAUL OLSON [facility] [id number] Univers 11:08:45 23:59:00 RAUL CHONG [facility] 2021-10-31 2021-10-31 [facility] [id number] Univers 11:08:45 23:59:00 Encounter Raul [facility] [id number] ity [facility] 4.2.7.2.686 [place] [facility] [phone] [facility] [address] 2021-10-21 2021-10-21 Outpatient RAUL OLSON [facility] [id number] Univers 14:00:00 23:59:00 RAUL CHONG parth [facility] 2021-10-21 2021-10-21 Lab Technician Lab, Ang - Db [facility] 1.2.840.1 [id number] Univers 14:15:00 14:30:00 Visit Raul Chong [facility] 350.1.13. 10 ity of [place] 4.2.7.2.686 David as LATOYA?BLEA [phone] [place] melecio [facility] [address] MEDICAL OFFICE [facility] 2021-10-21 2021-10-21 Office Castillo [facility] 1.2.840.114 [id number] Univers 13:00:00 14:14:25 Visit Raul [facility] [id number] ity of [place] 4.2.7.2.686 David as LATOYA?BLEA [phone] Wa dic[address] MEDICAL OFFICE BUILDING 2021-10-21 2021-10-21 Outpatient Roxann CASTILLORAUL [facility] [id number] Univers 13:00:00 14:14:25 RAUL CHONG [facility] 2021-10-21 2021-10-21 Letter Doctor LORENA 1.2.840.114 [id number] Univers 00:00:00 00:00:00 (Out) UnassignedMICHELLE 350.1.13.10 it 4.2.7.2.686 David as [phone] [address] 2021-09-30 2021-09-30 Outpatient Roxann CASTILLORAUL Conte [facility] [id number] Univers 11:00:00 11:00:00 CASTILLO RAUL mares [facility] 2021-09-22 2021-09-22 Orders Doctor LORENA 1.2.840.114 [id number] Univers 00:00:00 00:00:00 Only UnassignedMICHELLE 350.1.13.10 it 4.2.7.2.686 David as [phone] [address] 2021-06-12 2021-06-13 Hospital ER [facility] [id number] 16:44:00 12:16:00 Encounter [facility] 2021-06-12 2021-06-13 Outpatient ER [facility] Neurology [id number] [facility] 16:44:00 12:16:00 [place] 2021-06-12 2021-06-13 [facility] [id number] 16:44:00 12:16:00 Encounter [facility] 2021-06-12 2021-06-12 Travel [facility] [id number] [facility] 00:00:00 [facility] 2021-06-12 2021-06-12 Travel [facility] [id number] [facility] 00:[facility]:00 [facility] Results Test Description Test Time Test [...] NOT 1092) ACCURATE CRE ATININE CLEARANCE IN [place] EDICTING GLOMERULAR FILT RATION RATE. ESTIMATED GFR IS NOT APPLICABLE FOR DIALYSIS PATIENTS. Behavioral Modification Assistant ID - DSENSONOperator ID - DSENSONOperator ID - DSENSONOperator ID - DSENSONOperator ID - DSENSONOperator ID - DSENSONOperator ID - DSENSONOperator ID - DSENSONOperator ID - DSENSONOperator ID - DSENSONLIPID [id number] 10:14:39 Test Item Value Reference Range Interpretation [...] Borderline 130-159 High 160-189 Very High >=190 Behavioral Modification Assistant ID - DSENSONOperator ID - DSENSONOperator ID - DSENSONOperator ID - DSENSONOperator ID - DSENSONOperator ID - DSENSONHEMOGLOBIN [id number] 10:05:35 Test Item Value Reference Range Interpretation Comments HEMOGLOBIN A1C (BEAKER) (test code = 4.8 % 4.3-6.1 368) Behavioral Modification Assistant ID - DSENSONCBC W/PLT COUNT & AUTO [id number] 09:58:48 Test Item Value Reference Range Interpretation [...] PERCENT (BEAKER) (test code = 2801) POC-Glucose [id number] 07:46:05 Test Item Value Reference Range Interpretation Comments POC-Glucose Meter (test 86 mg/dL 70-110 : [facility]38[facility] [address] [place] [address]: Behavioral Modification Assistant/Techni berry ID = [id number] for Hanh Burnham Lab Interpretation (test Normal code = 73080-1) [facility] [id number] 07:46:05 Test Item Value Reference Range Interpretation Comments POC-Glucose Meter (test 86 mg/dL 70-110 : TE STED AT [facility] code = 1538) [address] [place] [address]6958: Behavioral Modification Assistant/Techni berry ID = [id number] for Hanh Burnham Lab Interpretation (test Normal code = 45150-1) [facility] [id number] 07:46:05 Test Item Value Reference Range Interpretation Comments POC-Glucose Meter (test 86 mg/dL 70-110 : [facility] 1538) [facility] [place] [address]: Behavioral Modification Assistant/Techni berry ID = [id number] for Hanh Burnham Lab Interpretation (test Normal code = 61116-5) [facility]-GLUCOSE [id number] 07:46:05 Test Item Value Reference Range Interpretation Comments POC-GLUCOSE METER 86 mg/dL 70-110 : TESTED A T [facility] 1317 (BEAKER) (test code = [place] [facility], 1538) [place] [address]6868: Behavioral Modification Assistant/Techni berry ID = [id number] for Hanh De Dios VITAMIN B12 AND [id number] 06:53:39 Test Item Value Reference Range Interpretation Comments VITAMIN B12 (BEAKER) 311 pg/mL 211-911 (test code = 774) FOLATE (BEAKER) 3.60 ng/mL See_Comment L [Automated message] (test code = 362) The system which generated this result transmitted ref erence range: >=5.4. T he reference range was not used to interpr et this result as normal/abnormal . Behavioral Modification Assistant ID - [id number] ID - DSENSONMR, MRA, BRAIN, WITHOUT CONTRAST 2021-06-13 02:26:00Unlisted Reason for Exam - Click Yes and Enter Reason Below- >YesUnlisted Reason for Exam->Screen [facility] 1960 [...] are patent. Right P1 segment of the REGULATORY COMPLIANCE SPECIALIST is hypoplastic with like morphology. P2 segments [...] 06/13/2021 02:26:38 MR, MRA, NECK, WITHOUT IV [id number] 02:26:00Unlisted Reason for Exam - Click Yes and Enter Reason Below->YesUnlisted Reason for Exam->[facility] ATKINS : 1960 Sex: [...] are patent. Right P1 segment of the REGULATORY COMPLIANCE SPECIALIST is hypoplastic with like morphology. P2 segments [...] central pontine punctate infarcts. Signed: Padilla Damon [facility] Verified Date/Time: 06/13/2021 02:26:38 MR, BRAIN, WITHOUT [id number] 02:26:00Unlisted Reason for Exam - Click Yes and Enter Reason Below->YesUnlisted Reason for Exam->[facility] : 1960 Sex: [...] are patent. Right P1 segment of the REGULATORY COMPLIANCE SPECIALIST is hypoplastic with like morphology. P2 segments [...] central pontine punctate infarcts. Signed: Padilla Damon [facility] Verified Date/Time: 06/13/2021 02:26:38 POCT-GLUCOSE [id number] 16:56:55 Test Item Value Reference Range Interpretation Comments POC-GLUCOSE METER 84 mg/dL 70-110 : TESTED A T [facility] 1317 (BEAKER) (test code = [address], [address]38) FORMERLY NAMED [facility] 77 [id number]: Behavioral Modification Assistant/Techni berry ID = [id number] for Hanh De Dios
[2022-02-20] MEDS ORDERED: LEVALBUTEROL 1.25 MG/3 ML NEB ONE (12:51)
[2022-02-20] MEDS ORDERED: IPRATROPIUM BROM 0.5MG/2.5ML ONE (12:51)
[2022-02-20 12:55] LABS: Arterial Blood Carboxyhemoglob 7.2 % (0-1.5); Blood Gas Oxyhemoglobin 85.9 % (94-97)
--- NOTE | 2022-02-20 13:39 | RAD REPORT ---
EXAM DESCRIPTION: RAD - Chest Single View - 02/20/2022 1:17 pm CLINICAL HISTORY: SOB COMPARISON: Chest Single View dated 11/23/2021; Chest Single View dated 06/12/2021; Chest Pa And Lat ( 2 Views) dated 05/28/2020; Chest Single View dated 05/27/2020 FINDINGS: Lines: None. Lungs: Increasing airspace disease in the right lung base. Pleural: No significant pleural effusions or pneumothorax. Cardiac: The heart size is within normal limits. Mediastinum: Within normal limits. Bones: No acute fractures. Other: None IMPRESSION: Increased airspace disease at the right lung base could reflect atelectasis and/or pneum onia.
[2022-02-20 13:58] LABS: Absolute Lymphocytes (CBC) 1.3 K/uL (0.7-4.9); Hematocrit 54.2 % (39.6-49.0); Lymphocytes % 11.2 % (15.3-44.8); MCV 86.9 fL (80-100); RBC Red Blood Cell Count 6.23 M/uL (4.33-5.43)
--- NOTE | 2022-02-20 14:01 | RAD REPORT ---
EXAM DESCRIPTION: CT - Head Brain Wo Cont - 02/20/2022 1:51 pm CLINICAL HISTORY: altered mental status COMPARISON: Head Brain Wo Cont dated 11/23/2021; Head Brain Wo Cont dated 10/14/2021 TECHNIQUE: All CT scans are performed using dose optimization technique as appropriate and may inclu de automated exposure control or mA/KV adjustment according to patient size. FINDINGS: No intracranial hemorrhage, hydrocephalus or extra-axial fluid collection.No areas of brai n edema or evidence of midline shift. Bilateral mastoid effusions right maxillary sinus mucous retention cyst The calvarium is intact. IMPRESSION: No acute intracranial abnormality.
[2022-02-20 14:04] LABS: Protime INR 1.07
[2022-02-20 14:23] LABS: Albumin 3.7 g/dL (3.4-5.0); Bilirubin Direct 0.2 mg/dL (0-0.2); Bilirubin Total 0.5 mg/dL (0.2-1.0); Magnesium 1.7 mg/dL (1.6-2.4); Protein, Total 7.6 g/dL (6.4-8.2); Troponin High Sensitivity 11.3 pg/mL (<58.9)
--- NOTE | 2022-02-20 15:47 | RAD REPORT ---
EXAM DESCRIPTION: CTChest Abdomen Pelvis W Cont - 02/20/2022 3:18 pm CLINICAL HISTORY: altered mental status COMPARISON: Chest Abdomen Pelvis W Cont dated 08/25/2018; Chest Single View dated 02/20/2022 TECHNIQUE: CT of the chest, abdomen, and pelvis was performed with IV contrast. All CT scans are performed using dose optimization technique as appropriate and may include automated exposure control or mA/KV adjustment according to patient size. FINDINGS: Thorax: Chest Wall: Multinodular thyroid. Lungs: Mild dependent atelectasis. Left upper lobe ground-glass opacities and small discrete nodule m easuring 9 millimeters noted. This is new from prior. Pleura: No effusions or pneumothorax. Marlen/Mediastinum: No lymphadenopathy. Aorta/Pulmonary Arteries: Unremarkable Heart: Normal size. Abdomen/Pelvis: Liver: No acute abnormality or suspicious lesions. Biliary: No biliary ductal dilatation. Stomach: No significant focal abnormality. Duodenum: No significant focal abnormality. Pancreas: No significant abnormality. Spleen: No significant abnormality. Adrenal: Unchanged 2.7 cm left adrenal nodule. This is unchanged since 08/25/2018 and almost certainl y benign. Kidney/ureter: No hydronephrosis. No renal calculi. Too small to characterize and/or benign appearing renal lesions are noted. Retroperitoneum: No retroperitoneal adenopathy. Vascular: No aneurysm. Bowel: Moderate colonic stool burden.. Peritoneum: No ascites or free air. Bladder: Grossly unremarkable. Reproductive: No adnexal masses. Bones: No acute fracture. Multilevel degenerative changes are present in the spine. Other: n/a IMPRESSION: 1. Left upper lobe ground-glass opacities could reflect asymmetric pulmonary edema. Pneu monia less likely. 2. No definite acute intra-abdominal abnormality. Moderate to large colonic stool burden which could indicate constipation. 3. New small discrete left upper lobe pulmonary nodule measuring 9 millimeters. While likely benign, a six-month follow-up chest CT is recommended to assess stability and/or resolution.
[2022-02-20] MEDS ORDERED: CEFTRIAXONE 1000 MG/VIAL ONE (16:25)
[2022-02-20] MEDS ORDERED: AZITHROMYCIN 250 MG TAB ONE (16:25)
[2022-02-20 17:19] LABS: Arterial Blood Carboxyhemoglob 4.8 % (0-1.5); Blood Gas Oxyhemoglobin 83.3 % (94-97); Blood O2 Saturation 88.8 % (92-98.5)
--- NOTE | 2022-02-20 18:06 | ER ---
Nurse's Notes [facility] Name: Say Olivera Age: 61 yrs Sex: Male : 1960 Arrival Date: 02/20/2022 Time: 12:31 Bed 5 Private MD: Diagnosis: Toxic effect of carbon monoxide from other source, accidental (unintentional), initial encounter-cigarette smoke;Other pneumonia, unspecified organism;COPD/ Chronic obstructive pulmonary disease with (acute) exacerbation Presentation: 02/20 12:31 Chief complaint: Home health nurse reports altered mental status today, unknown last hb normal. Pt normally AOx4 at baseline. Coronavirus screen: At this time, the client does not indicate any symptoms associated with coronavirus-19. Ebola Screen: No symptoms or risks identified at this time. Initial Sepsis Screen: Does the patient meet any 2 criteria? No. Patient's initial sepsis screen is negative. Does the patient have a suspected source of infection? No. Patient's initial sepsis screen is negative. Risk Assessment: Do you want to hurt yourself or someone else? Patient reports no desire to harm self or others. Onset of symptoms was February 20, 2022. 12:31 Method Of Arrival: EMS: [facility] hb 12:31 Acuity: PIERRE 2 hb Historical: - Allergies: 13:02 shrimp/shellfish; hb 13:02 thorazine; hb 13:02 yellow dye #5; hb - PMHx: 13:02 COPD; High Cholesterol; Diabetes - IDDM; Cerebrovascular accident; Hypertension; hb polycythemia vera; schizoaffective; - Immunization history:: Adult Immunizations unknown. - Social history:: Smoking status: Patient reports the use of cigarette tobacco products. Screenin:02 [facility] ED Fall Risk Assessment (Adult) History of falling in the last 3 months, ko1 including since admission No falls in past 3 months (0 pts) Confusion or Disorientation Yes (5 pts) Intoxicated or Sedated No (0 pts) Impaired Gait No (0 pts) Mobility Assist Device Used No (0 pt) Altered Elimination No (0 pt) Score/Fall Risk Level 3 or more points = High Risk Oriented to surroundings, Maintained a safe environment, Educated pt \T\ family on fall prevention, incl call for assistance when getting out of bed, Assessed \T\ reinforced patient's understanding of fall precautions, Provided non-skid footwear, Hourly rounding (assess needs \T\ fall precautionary measures) done, Used ambulatory aids as needed (educated on \T\ assisted with), Used gait belt as appropriate Implemented a Fall Risk Plan of Care, Apply high fall risk patient identification: yellow non skid footwear/ fall signage, Remained w/in arm's length of patient and in sight while toileting, Offered frequent toileting (1:1 observation), Remained with patient while ambulating, Utilized family, sitter, or virtual market developer as indicated. Abuse screen: Denies threats or abuse. Denies injuries from another. Nutritional screening: No deficits noted. Tuberculosis screening: No symptoms or risk factors identified. Assessment: 13:02 Pain: Denies pain. Neuro: Level of Consciousness is lethargic. Cardiovascular: No ko1 deficits noted. Respiratory: No deficits noted. GI: No deficits noted. : No deficits noted. EENT: No deficits noted. Derm: No deficits noted. Musculoskeletal: No deficits noted. 15:34 Reassessment: Patient appears in no apparent distress at this time. No changes from hb previously documented assessment. Patient and/or family updated on plan of care and expected duration. Pain level reassessed. 19:38 General: pt unable to ambulate or transfer at this time . as6 Vital Signs: 12:31 BP 134 / 98; Pulse 83; Resp 17; Temp 98.3; Pulse Ox 85% on R/A; Weight 99.79 kg; Height hb 5 ft. 10 in. (177.80 cm); Pain 2/10; 13:02 BP 130 / 88; Pulse 86; Resp 24; Pulse Ox 100% on 10% Nebulizer Mask; hb 13:02 BP 130 / 88; Pulse 94; Resp 18; Pulse Ox 98% on Non-rebreather mask; ko1 15:34 BP 132 / 86; Pulse 92; Resp 19; Pulse Ox 100% on Non-rebreather mask; hb 17:00 BP 113 / 61; Pulse 94; Resp 20; Pulse Ox 95% on R/A; ko1 18:00 BP 168 / 71; Pulse 92; Pulse Ox 94% on R/A; ko1 19:39 BP 145 / 79; Pulse 87; Resp 19 S; Pulse Ox 97% on R/A; as6 12:31 Body Mass Index 31.57 (99.79 kg, 177.80 cm) hb ED Course: 12:31 Patient arrived in ED. hb 12:32 Anirudh Downing PA is PHCP. cp 12:32 Alexia Curiel MD is Attending Physician. cp 12:33 Triage completed. hb 12:34 Arm band placed on. hb 13:02 Patient has correct armband on for positive identification. Fall risk band placed. Bed ko1 in low position. Call light in reach. Side rails up X2. Client placed on continuous cardiac and pulse oximetry monitoring. NIBP monitoring applied. 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 Warm blanket given. 13:02 No provider procedures requiring assistance completed. Maintain EMS IV. Dressing ko1 intact. Good blood return noted. Site clean \T\ dry. Gauge \T\ site: 20g right hand. Oxygen administration via non-rebreather mask \T\ 15L/min. 13:19 XRAY Chest (1 view) In Process Unspecified. EDMS 13:52 CT Head Brain wo Cont In Process Unspecified. EDMS 13:53 Basic Metabolic Panel Sent. bc6 13:53 CBC with Diff Sent. bc6 15:20 CT Chest, Abdomen, Pelvis - W/Contrast In Process Unspecified. EDMS 16:07 Lian Carmichael, RN is Primary Nurse. hb 17:00 Kristal Rebolledo, RN is Primary Nurse. ko1 17:16 Strep Sent. ko1 17:16 Blood Culture Adult (2) Sent. ko1 17:16 COVID-19/FLU A+B/RSV Sent. ko1 18:32 Throat Culture Sent. bc6 19:32 Urine Microscopic Only Sent. as7 Administered Medications: 12:54 Drug: Xopenex (levalbuterol) (3) 1.25 mg Route: Inhalation; ko1 12:54 Drug: AtroVENT (ipratropium) Aerosol 0.5 mg Route: Inhalation; ko1 16:29 Drug: Rocephin - (cefTRIAXone) 1 grams Route: IVPB; Infused Over: 30 mins; Site: right hb wrist; 16:29 Drug: Zithromax (azithromycin) 500 mg Route: PO; hb 18:12 Drug: SOLU-Medrol (methylPrednisoLONE) 125 mg Route: IVP; Site: right hand; ko1 Medication: 13:02 VIS not applicable for this client. ko1 Outcome: 18:05 Discharge ordered by MD. tom 20:31 Patient left the ED. tw5 Signatures: Dispatcher [employer] EDMS Anirudh Downing PA PA cp Baxter, Heather, RN RN hb Chris Santosy tw5 Charles Avalos RN RN as6 Kristal Rebolledo RN RN ko1 Delfina Hunter as7 Yvonne Justin 6 Corrections: (The following items were deleted from the chart) 12:36 12:31 BP 134 / 98; Pulse 83bpm; Resp 17bpm; Pulse Ox 95%; Temp 98.3F; 99.79 kg; Height hb 5 ft. 10 in.; BMI: 31.5; Pain 2/10; hb
--- NOTE | 2022-02-20 18:06 | EDPHYS ---
Physician Documentation [facility] Name: Say Olivera Age: 61 yrs Sex: Male : 1960 Arrival Date: 02/20/2022 Time: : Bed 5 Private MD: ED Physician Alexia Curiel HPI: 02/20 13:00 This 61 yrs old Male presents to ER via EMS with complaints of Altered Mental Status. cp 13:00 The patient presents with decreased responsiveness. cp 13:00 Onset: The symptoms/episode began/occurred at an unknown time. Possible causes: cp unknown. Associated signs and symptoms: Pertinent positives: weakness, somnolence , Pertinent negatives: abdominal pain, agitation, chest pain, combativeness, diaphoresis, diarrhea, headache, vomiting, fever. Current symptoms: In the emergency department the patient's symptoms are unchanged from the initial presentation, despite EMS interventions. Patient's baseline: Neuro: alert and fully oriented, Motor: no deficits, Ambulation: walks with assist only, uses walker, uses wheelchair, Speech: slow. 15:00 Sister reports patient is a chronic smoker. cp Historical: - Allergies: 13:02 shrimp/shellfish; hb 13:02 thorazine; hb 13:02 yellow dye #5; hb - PMHx: 13:02 COPD; High Cholesterol; Diabetes - IDDM; Cerebrovascular accident; Hypertension; hb polycythemia vera; schizoaffective; - Immunization history:: Adult Immunizations unknown. - Social history:: Smoking status: Patient reports the use of cigarette tobacco products. ROS: 13:05 Constitutional: Negative for body aches, chills, fever, poor PO intake. cp 13:05 Cardiovascular: Negative for chest pain, edema, palpitations. cp 13:05 Eyes: Negative for injury, pain, redness, and discharge. cp 13:05 ENT: Negative for drainage from ear(s), ear pain, sore throat, difficulty swallowing, cp difficulty handling secretions. 13:05 Respiratory: Negative for cough, shortness of breath, wheezing. 13:05 Abdomen/GI: Positive for constipation, Negative for abdominal pain, nausea, vomiting, and diarrhea, black/tarry stool, rectal bleeding. 13:05 Back: Negative for pain at rest, pain with movement. Exam: 13:10 Constitutional: The patient appears in no acute distress, alert, awake, cp non-diaphoretic, well developed, well nourished, unkempt. 13:10 Head/Face: Normocephalic, atraumatic. cp 13:10 Eyes: Periorbital structures: appear normal, Pupils: equal, round, and reactive to cp light and accomodation, Extraocular movements: intact throughout, Conjunctiva: normal, no exudate, no injection, Sclera: no appreciated abnormality, Lids and lashes: appear normal, bilaterally. 13:10 ENT: External ear(s): are unremarkable, Ear canal(s): are normal, clear, TM's: dullness, bilaterally, Nose: is normal, Mouth: Lips: dry, Oral mucosa: dry, Posterior pharynx: Airway: no evidence of obstruction, patent, swelling, is not appreciated, erythema, that is mild, exudate, is not appreciated. 13:10 Neck: ROM/movement: is normal, is supple, without pain, no range of motions limitations, no meningismus. 13:10 Chest/axilla: Inspection: normal, Palpation: is normal, no crepitus, no tenderness. 13:10 Cardiovascular: Rate: normal, Rhythm: regular, Heart sounds: murmur, systolic, Edema: is not appreciated, JVD: is not appreciated. 13:10 Respiratory: the patient does not display signs of respiratory distress, Respirations: normal, no use of accessory muscles, no retractions, labored breathing, is not present, Breath sounds: are clear throughout, no decreased breath sounds, no stridor, no wheezing. 13:10 Abdomen/GI: Inspection: abdomen appears normal, Bowel sounds: active, all quadrants, Palpation: soft, in all quadrants, nontender, in all quadrants, rebound tenderness, is not appreciated. 13:10 Back: pain, is absent, ROM is normal. 13:10 Skin: multiple superficial wounds to lower extremities and feet w/o significant signs of infection. 13:10 Neuro: Orientation: to person, place, situation, Mentation: able to follow commands, slow to respond, sleepy, Motor: moves all fours, general weakness with no focal deficits, Sensation: no obvious gross deficits. 17:52 ECG was reviewed by the Attending Physician. cp Vital Signs: 12:31 BP 134 / 98; Pulse 83; Resp 17; Temp 98.3; Pulse Ox 85% on R/A; Weight 99.79 kg; Height hb 5 ft. 10 in. (177.80 cm); Pain 2/10; 13:02 BP 130 / 88; Pulse 86; Resp 24; Pulse Ox 100% on 10% Nebulizer Mask; hb 13:02 BP 130 / 88; Pulse 94; Resp 18; Pulse Ox 98% on Non-rebreather mask; ko1 15:34 BP 132 / 86; Pulse 92; Resp 19; Pulse Ox 100% on Non-rebreather mask; hb 17:00 BP 113 / 61; Pulse 94; Resp 20; Pulse Ox 95% on R/A; ko1 18:00 BP 168 / 71; Pulse 92; Pulse Ox 94% on R/A; ko1 19:39 BP 145 / 79; Pulse 87; Resp 19 S; Pulse Ox 97% on R/A; as6 12:31 Body Mass Index 31.57 (99.79 kg, 177.80 cm) hb MDM: 12:40 Patient medically screened. cp 13:00 Differential Diagnosis: electrolyte abnormality, alcohol intoxication, intracranial cp bleed, overdose, pneumonia, seizure, sepsis, volume depletion. 18:00 Data reviewed: vital signs, nurses notes, lab test result(s), EKG, radiologic studies, cp CT scan, plain films. 18:00 Test interpretation: by ED physician or midlevel provider: ECG, plain radiologic cp studies. 18:05 Counseling: I had a detailed discussion with the patient and/or guardian regarding: the cp historical points, exam findings, and any diagnostic results supporting the discharge/admit diagnosis, lab results, radiology results, the need for outpatient follow up, a family practitioner, to return to the emergency department if symptoms worsen or persist or if there are any questions or concerns that arise at home. 18:05 Response to treatment: the patient's symptoms have markedly improved after treatment, cp VSS. Patient appears non-toxic and no signs of respiratory distress. Patient much more alert, requesting discharge to home. 02/20 12:42 Order name: Basic Metabolic Panel; Complete Time: 15:02 cp 02/20 15:02 Interpretation: NA 134; CRE 0.68. cp 02/20 12:42 Order name: CBC with Diff; Complete Time: 14:17 cp 02/20 14:17 Interpretation: WBC 11.90; RBC 6.23; HGB 19.1; HCT 54.2; MPV 7.0; REBEKAH% 78.2; LYM% 11.2; cp NEUT A 9.3. 02/20 12:42 Order name: LFT's; Complete Time: 15:02 02/20 12:42 Order name: Magnesium; Complete Time: 15:02 02/20 12:42 Order name: NT PRO-BNP; Complete Time: 15:02 02/20 12:42 Order name: PT-INR; Complete Time: 14:17 02/20 12:42 Order name: Troponin HS; Complete Time: 15:02 02/20 12:42 Order name: COVID-19/FLU A+B/RSV 02/20 12:42 Order name: Lactate w/ 2H reflex if indic.; Complete Time: 14:18 02/20 12:42 Order name: Procalcitonin; Complete Time: 15:57 02/20 12:42 Order name: Strep 02/20 12:42 Order name: Blood Culture Adult (2) 02/20 12:44 Order name: ABG; Complete Time: 13:56 02/20 13:57 Interpretation: Reviewed. 02/20 17:05 Order name: Urine Microscopic Only 02/20 12:42 Order name: CT Head Brain wo Cont; Complete Time: 14:17 02/20 12:42 Order name: XRAY Chest (1 view); Complete Time: 13:56 02/20 13:57 Interpretation: Report review. 02/20 12:42 Order name: EKG; Complete Time: 12:43 02/20 12:42 Order name: Cardiac monitoring; Complete Time: 12:47 02/20 12:42 Order name: EKG - Nurse/Tech; Complete Time: 14:06 02/20 12:42 Order name: IV Saline Lock; Complete Time: 12:47 02/20 12:42 Order name: Labs collected and sent; Complete Time: 13:52 02/20 15:04 Order name: CT Chest, Abdomen, Pelvis - W/Contrast; Complete Time: 15:57 02/20 17:20 Order name: ABG Arterial Blood Gas; Complete Time: 18:10 EDMS 02/20 18:14 Order name: Throat Culture EDWV 02/20 19:33 Order name: Urine Dipstick-Ancillary EDMS 02/20 12:42 Order name: O2 Per Protocol; Complete Time: 12:47 cp 02/20 12:42 Order name: O2 Sat Monitoring; Complete Time: 12:47 cp 02/20 16:01 Order name: PO challenge; Complete Time: 16:30 cp 02/20 17:05 Order name: Urine Dipstick-Ancillary (obtain specimen); Complete Time: 19:32 cp EC:52 Rate is 87 beats/min. Rhythm is regular. ID interval is normal. QRS interval is cp prolonged at 108 msec. QT interval is normal. T waves are Inverted in lead aVL. Interpreted by me. Reviewed by me. Administered Medications: 12:54 Drug: Xopenex (levalbuterol) (3) 1.25 mg Route: Inhalation; ko1 12:54 Drug: AtroVENT (ipratropium) Aerosol 0.5 mg Route: Inhalation; ko1 16:29 Drug: Rocephin - (cefTRIAXone) 1 grams Route: IVPB; Infused Over: 30 mins; Site: right hb wrist; 16:29 Drug: Zithromax (azithromycin) 500 mg Route: PO; hb 18:12 Drug: SOLU-Medrol (methylPrednisoLONE) 125 mg Route: IVP; Site: right hand; ko1 Disposition Summary: 02/20/22 18:05 Discharge Ordered Location: Home cp Problem: new cp Symptoms: have improved cp Condition: Stable cp Diagnosis - Toxic effect of carbon monoxide from other source, accidental (unintentional), cp initial encounter - cigarette smoke - Other pneumonia, unspecified organism cp - COPD/ Chronic obstructive pulmonary disease with (acute) exacerbation cp Followup: cp - With: Private Physician - When: 2 - 3 days - Reason: Recheck today's complaints Discharge Instructions: - Discharge Summary Sheet cp - Carbon Monoxide Poisoning cp - Community-Acquired Pneumonia, Adult cp - Chronic Obstructive Pulmonary Disease Exacerbation cp Forms: - Medication Reconciliation Form cp - Thank You Letter cp - Antibiotic Education cp - Prescription Opioid Use cp - SBAR form ha1 Prescriptions: - Augmentin 875-125 mg Oral Tablet - take 1 tablet by ORAL route every 12 hours for 10 days; 20 tablet; Refills: 0, cp Product Selection Permitted - Zithromax Z-Dennis 250 mg Oral Tablet - take 1 tablet by ORAL route as directed for 5 days Day 1 - take two (2) tablets cp one time. Day 2, 3, 4 , 5 take one (1) tablet once daily.; 6 tablet; Refills: 0, Product Selection Permitted - Medrol (Dennis) 4 mg Oral Tablets, Dose Pack - take 1 tablet by ORAL route as directed - follow package instructions; 1 cp packet; Refills: 0, Product Selection Permitted Addendum: 02/24/2022 18:34 STAFF ATTESTATION STATEMENT: I was immediately available onsite in the emergency s d2 department for consultation in the care of this patient. I did not see or examine this patient. Alexia Curiel MD. Signatures: Dispatcher [employer] EDMS Anirudh Downing PA PA cp Lian Carmichael, RN RN Alexia Curiel MD MD sd2 Kristal Rebolledo RN RN ko1 Corrections: (The following items were deleted from the chart) 02/21 16:30 02/20 13:10 Constitutional: The patient appears in no acute distress, alert, awake, cp cp
[2022-02-20] MEDS ORDERED: METHYLPREDNISOLONE 125 MG INJ ONE (18:12)
[2022-02-20 18:38] LABS: SARS-COV-2 RT PCR NEGATIVE (NEGATIVE)
[2022-02-20 19:32] LABS: Urine Blood 1+ (Negative); Urine Glucose Negative (Negative); Urine Protein Negative (Negative)
[2022-02-20 19:43] LABS: Urine Bacteria None Seen /HPF (<20); Urine RBC <5 /HPF (None Seen)
[2022-02-20 20:50] VITALS: TEMP 98.3
[2022-02-20 20:56] VITALS: BP 145/79; O2SAT 97
--- NOTE | 2022-02-21 14:51 | EKG ---
Test Date: 2022-02-20 Test Time: 17:49:09 Continuous Crusher Operator: HB MEASUREMENT RESULTS: Intervals: Rate: 87 WA: 138 QRSD: 108 QT: 386 QTc: 464 [place]: P: 38 WA: 138 QRS: -38 T: 112 INTERPRETIVE STATEMENTS: Sinus rhythm with premature atrial complexes Left axis deviation Left ventricular hypertrophy with repolarization abnormality Abnormal ECG Compared to ECG 11/23/2021 10:33:16 Atrial premature complex(es) now present Left-axis deviation now present Early repolarization now present Left anterior fascicular block no longer present Electronically Signed On 02-21-22 14:50:27 QUAL RESEARCH MANAGER by Jeff Patino
== END 2022-02-20 20:31 | disposition home or self-care (01) ==
LOC: ER 12:29
DX: J18.8 Other pneumonia, unspecified organism (principal); T58.8X1A Toxic effect of carbon monoxide from other source, accidental (unintentional), initial encounter; J44.1 Chronic obstructive pulmonary disease with (acute) exacerbation; I10 Essential (primary) hypertension; Z88.8 Allergy status to other drugs, medicaments and biological substances; Z91.02 Food additives allergy status; Z91.013 Allergy to seafood; Z72.0 Tobacco use; Z20.822 Contact with and (suspected) exposure to COVID-19
CPT/HCPCS: 93005; 87040 ×2; 87070; 85025; 80048; 36415; 83735; 87205 ×2; 85610; 80076; 87081; 83605; 87077; 87186; 84484; 84145; 83880; 0241U; 70450; 71260; 74177; 71045; 82805 ×2; 99285; Q9967; J7614; Q0144; J7644; J2930; 81003; 81015

== ENCOUNTER 2023-02-23 18:45 | Inpatient (IN) | payer OTHER ==
[2023-02-23] MEDS ORDERED: NA CHLORIDE 0.9% 1,000 ML ONE (19:28)
[2023-02-23] MEDS ORDERED: FAMOTIDINE 20 MG/2 ML VIAL IV ONE (19:28)
[2023-02-23] MEDS ORDERED: NA CHLORIDE 0.9% 0 ML ONE (19:28)
[2023-02-23] MEDS ORDERED: CEFTRIAXONE 1000 MG/VIAL ONE ×2 (19:28→19:44)
[2023-02-23 19:41] LABS: Absolute Lymphocytes (CBC) 0.4 K/uL (0.7-4.9); Hematocrit 47.8 % (39.6-49.0); Lymphocytes % 2.3 % (15.3-44.8); MCV 84.3 fL (80-100); MPV 7.2 fL (7.6-11.3); Platelets 214 thou/uL (152-406); RBC Red Blood Cell Count 5.66 M/uL (4.33-5.43)
[2023-02-23] MEDS ORDERED: NA CHLORIDE 0.9% 100 ML ONE (19:44)
[2023-02-23] MEDS ORDERED: METHYLPREDNISOLONE 125 MG INJ ONE (19:44)
[2023-02-23] MEDS ORDERED: IPRATROPIUM BROM 0.5MG/2.5ML ONE (19:44)
[2023-02-23] MEDS ORDERED: LEVALBUTEROL 1.25 MG/3 ML NEB ONE (19:46)
--- NOTE | 2023-02-23 19:53 | EDPHYS ---
Physician Documentation [facility] Name: Say Olivera Age: 62 yrs Sex: Male : 1960 Arrival Date: 02/23/2023 Time: 18:45 Bed 14 Private MD: Anirudh Riddle HPI: 02/23 19:35 This 62 yrs old Male presents to ER via Unassigned with complaints of FEVER , tammy DYSPNEA AND WEAKNESS. 19:35 The patient has shortness of breath at rest, with light activity. Duration: The tammy symptoms are continuous, and are steadily getting worse. The patient's shortness of breath is aggravated by coughing, supine position, is alleviated by elevating head, nebulizer treatment, application of supplemental oxygen. The patient or guardian reports cough, described as mild, described as moderate, difficulty breathing, flu symptoms, arthralgias, low-grade fever, myalgias. Onset: The symptoms/episode began/occurred this morning, yesterday. Modifying factors: The symptoms are alleviated by changing position, the symptoms are aggravated by lying flat, talking. Associated signs and symptoms: Pertinent positives: non-productive cough, dizziness, fever. Severity of symptoms: At their worst the symptoms were moderate in the emergency department the symptoms are unchanged. Associated signs and symptoms: Pertinent positives: fever, rhinorrhea, sore throat. Historical: - Allergies: 20:19 shrimp/shellfish; jw7 20:19 thorazine; jw7 20:19 yellow dye #5; jw7 - Home Meds: 20:19 Albuterol Inhl [Active]; amlodipine oral [Active]; atorvastatin Oral [Active]; jw7 Benztropine Mesylate Oral [Active]; Bupropion Oral [Active]; cholecalciferol (vitamin D3) Oral [Active]; Fish Oil Oral [Active]; gabapentin oral [Active]; losartan Oral [Active]; Metformin Oral [Active]; sertraline Oral [Active]; - PMHx: 20:19 Cerebrovascular accident; COPD; Diabetes - IDDM; High Cholesterol; Hypertension; jw7 polycythemia vera; schizoaffective; Myocardial infarction; Major depressive disorder; - Immunization history:: Adult Immunizations unknown. - Social history:: Smoking status: Patient denies any tobacco usage or history of. - Family history:: not pertinent. ROS: 19:35 Eyes: Negative for injury, pain, redness, and discharge, ENT: Negative for injury, tammy pain, and discharge, Neck: Negative for injury, pain, and swelling, Cardiovascular: Negative for chest pain, palpitations, and edema, Abdomen/GI: Negative for abdominal pain, nausea, vomiting, diarrhea, and constipation, Back: Negative for injury and pain, : Negative for injury, bleeding, discharge, and swelling, MS/Extremity: Negative for injury and deformity, Skin: Negative for injury, rash, and discoloration, Neuro: Negative for headache, weakness, numbness, tingling, and seizure, Psych: Negative for depression, anxiety, suicide ideation, homicidal ideation, and hallucinations, Allergy/Immunology: Negative for hives, rash, and allergies, Endocrine: Negative for neck swelling, polydipsia, polyuria, polyphagia, and marked weight changes, Hematologic/Lymphatic: Negative for swollen nodes, abnormal bleeding, and unusual bruising, 19:35 Constitutional: Positive for body aches, chills, fatigue, 19:35 Respiratory: Positive for cough, shortness of breath, wheezing, inspiratory, expiratory, 19:35 Neuro: Positive for weakness, Exam: 19:35 Head/Face: Normocephalic, atraumatic. Eyes: Pupils equal round and reactive to light, tammy extra-ocular motions intact. Lids and lashes normal. Conjunctiva and sclera are non-icteric and not injected. Cornea within normal limits. Periorbital areas with no swelling, redness, or edema. ENT: Nares patent. No nasal discharge, no septal abnormalities noted. Tympanic membranes are normal and external auditory canals are clear. Oropharynx with no redness, swelling, or masses, exudates, or evidence of obstruction, uvula midline. Mucous membranes moist. Neck: Trachea midline, no thyromegaly or masses palpated, and no cervical lymphadenopathy. Supple, full range of motion without nuchal rigidity, or vertebral point tenderness. No Meningismus. Chest/axilla: Normal chest wall appearance and motion. Nontender with no deformity. No lesions are appreciated. Abdomen/GI: Soft, non-tender, with normal bowel sounds. No distension or tympany. No guarding or rebound. No evidence of tenderness throughout. Back: No spinal tenderness. No costovertebral tenderness. Full range of motion. Male : Normal genitalia with no discharge or lesions. Skin: Warm, dry with normal turgor. Normal color with no rashes, no lesions, and no evidence of cellulitis. MS/ Extremity: Pulses equal, no cyanosis. Neurovascular intact. Full, normal range of motion. Psych: Awake, alert, with orientation to person, place and time. Behavior, mood, and affect are within normal limits. 19:35 Constitutional: The patient appears febrile, obviously ill, Vital Signs: 19:00 BP 127 / 69; Pulse 115; Resp 28; Temp 103.2; Pulse Ox 92% on 2 lpm NC; Weight 111.13 jw7 kg; Height 5 ft. 6 in. ; Pain 0/10; 20:34 BP 114 / 64; Pulse 104; Resp 25; Pulse Ox 96% on 9 lpm Nebulizer Mask; 7 20:36 Temp 98.1(O); 7 21:30 BP 122 / 72; Pulse 104; Resp 29 S; Pulse Ox 92% on 3 lpm NC; 7 22:30 BP 134 / 85; Pulse 105; Resp 30 S; Pulse Ox 92% on 4 lpm NC; 7 19:00 Body Mass Index 39.54 (111.13 kg, 167.64 cm) [facility] 19:00 Pain Scale: Adult [facility] MDM: 19:05 Patient medically screened. [facility] 19:41 Differential diagnosis: obstructed airway, tracheal injury, bronchitis, flu, URI, viral tammy Infection, bacterial infection, URI, bronchitis, pneumonia UTI. Antibiotic administration: Rocephin and Zithromax given. Immunization status: Influenza vaccine: within last 5 years. Data reviewed: vital signs, nurses notes, lab test result(s), EKG, radiologic studies, plain films. Consideration of Admission/Observation Patient was admitted/placed on observation. Escalation of care including admission/observation considered. Independent interpretation of the following test(s) in the Emergency Department EKG: See my EKG interpretation above. Test considered but Not performed: CT: NO CT CHEST. 02/23 19:06 Order name: Basic Metabolic Panel; Complete Time: 20:13 [facility] 02/23 19:06 Order name: CBC with Diff [facility] 02/23 19:06 Order name: LFT's; Complete Time: 20:13 [facility] 02/23 19:06 Order name: Magnesium; Complete Time: 20:13 [facility] 02/23 19:06 Order name: NT PRO-BNP; Complete Time: 20:13 [facility] 02/23 19:06 Order name: PT-INR; Complete Time: 20:00 [facility] 02/23 19:06 Order name: Troponin HS; Complete Time: 20:13 [facility] 02/23 19:06 Order name: Blood Culture Adult (2) [facility] 02/23 19:06 Order name: Lactate w/ 2H reflex if indic.; Complete Time: 20:12 [facility] 02/23 19:06 Order name: Urinalysis w/ reflexes [facility] 02/23 19:06 Order name: Lipase; Complete Time: 20:13 [facility] 02/23 19:12 Order name: COVID-19 SARS RT PCR; Complete Time: 20:10 [facility] 02/23 19:12 Order name: Flu; Complete Time: 20:00 [facility] 02/23 19:12 Order name: RSV; Complete Time: 20:00 [facility] 02/23 19:31 Order name: ABG [facility] 02/23 19:44 Order name: CBC Smear Scan [facility]FL 02/23 21:51 Order name: CBC with Automated Diff EDMS 02/23 21:51 Order name: CBC with Automated Diff EDMS 02/23 21:51 Order name: Comprehensive Metabolic Panel [facility]FL 02/23 21:51 Order name: Comprehensive Metabolic Panel [facility] 02/23 19:06 Order name: XRAY Chest (1 view); Complete Time: 20:00 [facility] 02/23 21:01 Order name: Chest For Pe Angio EDMS 02/23 19:06 Order name: EKG; Complete Time: 19:08 [facility] 02/23 19:06 Order name: Cardiac monitoring; Complete Time: 19:40 [facility] 02/23 19:06 Order name: EKG - Nurse/Tech; Complete Time: 19:40 [facility] 02/23 19:06 Order name: IV Saline Lock; Complete Time: 19:40 [facility] 02/23 19:06 Order name: Labs collected and sent; Complete Time: 19:40 [facility] 02/23 19:06 Order name: O2 Per Protocol; Complete Time: 19:39 [facility] 02/23 19:06 Order name: O2 Sat Monitoring; Complete Time: 19:39 [facility] 02/23 19:50 Order name: IV Saline Lock - Large Bore; Complete Time: 20:06 [facility] Administered Medications: 19:31 Not Given (Duplicate Order): rocephin1 grams IV at per protocol once; Given slow IV tammy push per pharmacy instructions 20:06 Drug: NS 0.9% IV 1000 ml IV at 1 bolus Per protocol; 1000 mL bolus Route: IV; Rate: 1 jw7 bolus; Site: right wrist; 20:06 Drug: Famotidine IVP 20 mg IVP once; dilute with 10 mL 0.9% NaCl; give over 2 minutes jw7 Route: IVP; Site: right wrist; 20:07 Drug: MethylPrednisoLONE IVP 125 mg IVP once Route: IVP; Site: right wrist; jw7 20:07 Drug: Levalbuterol Inhalation 3.75 mg Inhalation once Route: Inhalation; jw7 20:07 Drug: Ipratropium Inhalation Aerosol 0.5 mg Inhalation once Route: Inhalation; jw7 20:07 Drug: Rocephin IV 2 grams IV at per protocol once; Given slow IV push per pharmarcy jw7 instructions Route: IV; Rate: per protocol; Site: right wrist; 21:10 Not Given (Medication unavailable ): Paxlovid Dose Pack 300 mg (150 mg x 2)-100 mg 1 jw7 packets PO once 22:31 Drug: Zithromax IVPB 500 mg IVPB once over 1 hrs; mix in 250 mL NS Route: IVPB; Infused jw7 Over: 1 hrs; Site: left wrist; 22:31 Drug: vancoMYCIN IVPB 1 grams IVPB once over 2 hrs Route: IVPB; Infused Over: 2 hrs; jw7 Site: right wrist; 22:31 Drug: Magnesium Sulfate IVPB 2 grams IVPB once over 2 hrs Route: IVPB; Infused Over: 2 jw7 hrs; Site: right wrist; Disposition Summary: 02/23/23 19:53 Hospitalization Ordered Notes: Hospitalization Status: Inpatient Admission tammy Provider: Conrad Jesus cha Location: Telemetry/MedSurg (Inpatient) tammy Condition: Fair tammy Problem: new tammy Symptoms: have improved tammy Bed/Room Type: Standard tammy Room Assignment: 418(02/23/23 21:06) cg Diagnosis - COPD/ Chronic obstructive pulmonary disease with (acute) exacerbation tammy - Hypoxemia tammy - Pneumonia due to other specified bacteria - BILATERAL tammy - Fever, unspecified tammy - Tobacco abuse counseling tammy - Tobacco use tammy - Obesity, unspecified tammy - Elevated white blood cell count tammy - Pneumonia due to SARS-associated coronavirus tammy - SARS-associated coronavirus as the cause of diseases classified elsewhere tammy - Hypomagnesemia tammy Forms: - Medication Reconciliation Form tammy - SBAR form tammy - Leadership Thank You Letter tammy Signatures: Dispatcher [employer] EDAnirudh Medina MD MD cha Garcia, Cindy, RN RN cg Venita Diggs RN RN jw7 Corrections: (The following items were deleted from the chart) 20:59 20:59 Chest Angio ordered. EDMS EDMS 21:06 19:53 [facility] 21:29 19:04 COVID-19/FLU A+B/RSV+MOL.LAB.BRZ ordered. EDMS EDMS
[2023-02-23 19:55] LABS: Protime INR 1.26
--- NOTE | 2023-02-23 19:58 | RAD REPORT ---
EXAM DESCRIPTION: Alberto Single View02/23/2023 7:49 pm CLINICAL HISTORY: Shortness of breath COMPARISON: 2021 FINDINGS: 7 centimeter left upper lobe opacity. Mild right lung opacity. Heart mildly to moderately enlarged IMPRESSION: Bilateral pulmonary opacities left greater than right may represent pneumonia
[2023-02-23 20:11] LABS: Albumin 3.1 g/dL (3.4-5.0); Bilirubin Direct 0.2 mg/dL (0-0.2); Bilirubin Indirect, Calculated 0.4 mg/dL (0.2-0.8); Bilirubin Total 0.6 mg/dL (0.2-1.0); Potassium 3.9 mEq/L (3.5-5.1); Protein, Total 7.5 g/dL (6.4-8.2); Troponin High Sensitivity 12.9 pg/mL (<58.9)
[2023-02-23 20:21] LABS: Blood Morphology Comment NOT SEEN (NOT SEEN); Platelet Estimate ADEQ; White Blood Cell Scan OK (OK)
[2023-02-23 20:53] LABS: Arterial Blood Carboxyhemoglob 2.4 % (0-1.5); Blood Gas Oxyhemoglobin 87.4 % (94-97); Blood O2 Saturation 91.1 % (92-98.5)
[2023-02-23] MEDS ORDERED: VANCOMYCIN 1 GM/VIAL ONE (21:03)
[2023-02-23] MEDS ORDERED: AZITHROMYCIN 500 MG INJ IVPB ONE (21:03)
[2023-02-23] MEDS ORDERED: Magnesium Sulfate 2gm IVPB 2 G/50 ML BAG IV ONE ×2 (21:04→21:19)
[2023-02-23] MEDS ORDERED: NA CHLORIDE 0.9% 500 ML ONE (21:04)
--- NOTE | 2023-02-23 21:18 | P.HP ---
Certification for Inpatient Patient admitted to: Inpatient With expected LOS: >2 Midnights Practitioner: I am a practitioner with admitting privileges, knowledge of patient current condition, hospital course, and medical plan of care. Services: Services provided to patient in accordance with Admission requirements found in Title 42 Section 412.3 of the Code of Federal Regulations Patient History Date of Service: 02/23/23 Reason for admission: SOB History of Present Illness: 62 yrs old Male with past medical history of COPD, diabetes, hypertension, schizoaffective disorder, hyperlipidemia, obesity, brought to ER with shortness of breath which has been progressively worsening over the last few days. Patient has having fever and upper respiratory tract infection kind of symptoms associated with myelitis and generalized weakness associated with generalized body pain as well. Associated with cough with mucoid expectoration. Over the last 1 week he has been progressively getting worse with shortness of breath even with minimal exertion. Denies any chest pain. Complains of subjective fever with chills and also associated with rhinorrhea and sore throat. Patient denies any chest pain or shortness of breath. No nausea vomiting or diarrhea. Patient was assessed in the ER and was found to have multifocal pneumonia and COVID-positive along with acute hypoxic respiratory failure and the patient was admitted for further management Allergies apple Allergy (Verified 05/22/20 21:56) unknown corn Allergy (Verified 05/22/20 21:56) unknown Fish Containing Products Allergy (Verified 05/22/20 21:56) unknown fish derived Allergy (Verified 05/22/20 21:56) unknown chlorpromazine [From Thorazine] Adverse Reaction (Verified 05/22/20 21:56) severe confusion, agitation Home medications list reviewed: Yes Home Medications: Aspirin [Adult Low Dose Aspirin EC] 81 mg PO DAILY 05/23/20 Atorvastatin Calcium 20 mg PO BEDTIME 05/23/20 Benztropine Mesylate [Cogentin*] 1 mg PO BID 05/23/20 Cholecalciferol (Vitamin D3) [Vitamin D3] 10 mcg PO DAILY 05/23/20 Cinnamon Bark [Cinnamon] 1 cap PO DAILY 05/23/20 Docosahexanoic AC/Epa [Fish Oil 1,000 MG*] 1 cap PO DAILY 05/23/20 Docusate Sodium 100 mg PO DAILY PRN 05/23/20 Haloperidol Decanoate [Haldol Decanoate 50] 50 mg IM Q30D 05/23/20 Lurasidone HCl [Latuda] 60 mg PO DAILY 05/23/20 Psyllium [Metamucil (Hydrocil)*] 5 ml PO DAILY PRN 05/23/20 Sertraline HCl 200 mg PO DAILY 05/23/20 Albuterol Neb [Proventil 0.083% Neb Soln] 2.5 mg NEB [id number] #120 amp 05/30/20 Alcohol Antiseptic Pads [Alcohol Prep Pads] 1 each TP TID #100 med..pad 05/30/20 Benzocaine/Menthol [Cepacol Sore Throat Lozenge] 1 each MM Q6H PRN #30 lozenge 05/30/20 Blood Sugar Diagnostic [Glucose Test Strip] 1 each MC TID #100 strip 05/30/20 Blood-Glucose Meter [Contour] 1 each TID #1 kit 05/30/20 Insulin 70/30 NPH/Reg Human [Novolin 70/30*] 20 unit SQ BIDAC #10 ml 05/30/20 Ipratropium Neb [Atrovent*] 0.5 mg NEB [id number] #120 amp 05/30/20 Lancets [Lancets Ultra Thin] 1 each MC TID #100 each 05/30/20 Nebulizer [Aeroneb Go Nebulizer] 1 each MC Q6H #1 each 05/30/20 Spironolactone [Aldactone*] 25 mg PO DAILY #30 tab 05/30/20 Syring-Needl,Disp,Insul,0.3 ml [Insulin Syringe] 1 each TID #100 disp.syrin 05/30/20 levoFLOXacin [Levaquin*] 750 mg PO DAILY #5 tab 05/30/20 predniSONE [Prednisone*] 20 mg PO BID #10 tab 05/30/20 - Past Medical/Surgical History Diabetic: Yes Past Medical History: Reviewed- Non-Contributory -: COPD -: Schizoaffective disorder -: Polycythemia -: Tobacco abuse -: Diabetes mellitus type 2 -: HTN Past Surgical History: Reviewed- Non-Contributory -: Left forearm skin cancer -: Right hand infection and I&D Psychosocial/ Personal History: Patient lives at home alone, is retired from the . - Family History Family History: Reviewed- Non-Contributory - Family History Father -: Heart disease Mother -: Heart disease - Social History Smoking Status: Current every day smoker Alcohol use: No CD- Drugs: No Caffeine use: Yes Review of Systems 10-point ROS is otherwise unremarkable General: Weakness, Malaise Eyes: Unremarkable ENT: Unremarkable Respiratory: Cough, Shortness of Breath, SOB with Excertion, Wheezing Cardiovascular: Unremarkable Gastrointestinal: Unremarkable Genitourinary: Unremarkable Musculoskeletal: Unremarkable Integumentary: Unremarkable Neurological: Unremarkable Physical Examination - Vital Signs Temperature: 98.6 F Blood Pressure: 148/88 Pulse: 78 Respirations: 19 Pulse Ox (%): 96 - Physical Exam General: Alert, In no apparent distress, Oriented x3, Moderate distress, Obese HEENT: Atraumatic, Normocephalic Neck: Supple, 2+ carotid pulse no bruit Respiratory: Diminished, Crackles/rales, Friction rub, Expiratory wheezes Cardiovascular: Regular rate/rhythm, Normal S1 S2 Capillary refill: <2 Seconds Gastrointestinal: Soft and benign, W/out hepatosplenomegaly Musculoskeletal: No clubbing, No swelling Integumentary: No rashes, No breakdown Neurological: Normal speech, Normal strength at 5/5 x4 extr, Cranial nerves 3-12 intact, Normal reflexes 2+ Lymphatics: No axilla or inguinal lymphadenopathy - Studies Laboratory Data (last 24 hrs) 02/23/23 02/23/23 02/23/23 19:20 19:20 19:20 WBC 18.40 H Hgb 16.6 Hct 47.8 Plt Count 214 PT 13.8 H INR 1.26 Sodium 127 L Potassium 3.9 BUN 12 Creatinine 0.89 Glucose 143 H Magnesium 1.0 L* Total Bilirubin 0.6 AST 13 L ALT 18 Alkaline Phosphatase 80 Lipase 42 Microbiology Data (last 24 hrs): 02/23/23 19:22 Nasopharnyx Influenza Type A Antigen Screen - Final 02/23/23 19:22 Nasopharnyx Influenza Type B Antigen Screen - Final 02/23/23 19:22 Nasopharnyx Respiratory Syncytial Virus Ag Scrn - Final Assessment and Plan - Problems (Diagnosis) (1) COVID-19 Current Visit: Yes Status: Acute Plan: COVID 19 test is positive X-ray consistent with multifocal pneumonia Patient is on oxygen support We will get a CT of the chest PE protocol Will start on steroids (2) Pneumonia Current Visit: No Status: Acute Plan: Multifocal pneumonia Will start on IV antibiotic Will add on steroids because of COVID Obtain cultures Change antibiotic as per sensitivity (3) COPD exacerbation Current Visit: No Status: Acute Plan: Bronchodilators Antitussives Will add on Mucinex (4) Acute respiratory failure with hypoxia Current Visit: No Status: Acute Plan: Oxygen supplementation to titrate to pulse ox more than 92 Plan to wean oxygen requirement (5) Diabetes Current Visit: Yes Status: Chronic Plan: Insulin sliding scale Continue home medications and titrate as needed Add on basal insulin (6) Hypertension Current Visit: Yes Status: Chronic Plan: Continue home medications and titrate as needed Antihypertensives titrated Hydralazine as needed (7) Hyponatremia Current Visit: Yes Status: Acute Plan: Electrolytes monitor and replace accordingly Monitor neuro vital signs (8) Hypomagnesemia Current Visit: Yes Status: Acute Plan: His magnesium Will obtain magnesium level in a.m. Discharge Plan: Home - Advance Directives Does patient have a Living Will: Yes Does patient have a Durable POA for Healthcare: Yes - Code Status/Comfort Care Code Status: Full Code Time Spent Managing Pts Care (In Minutes): 48
[2023-02-23] MEDS ORDERED: MORPHINE 2 MG/ML SYR IV PRN (21:45)
[2023-02-23] MEDS ORDERED: ALBUTEROL 2.5 MG/3 ML NEB SOL NEB PRN (21:45)
[2023-02-23] MEDS ORDERED: ONDANSETRON 4 MG/2 ML VIAL IV PRN (21:45)
[2023-02-23] MEDS: AZITHROMYCIN IV 500 MG in NA CHLORIDE 0.9% 250 ML IVPB SCH (21:50)
[2023-02-23] MEDS: dexAMETHasone 10 MG/ML VIAL IV SCH (21:51)
[2023-02-23] MEDS: CEFTRIAXONE 1,000 MG in NA CHLORIDE 0.9% 50 ML IVPB SCH (21:51)
--- NOTE | 2023-02-23 22:04 | RAD REPORT ---
EXAM DESCRIPTION: CT - Chest For Pe Angio - 02/23/2023 9:53 pm CLINICAL HISTORY: Chest pain COMPARISON: None. TECHNIQUE: Dynamically enhanced axial 3 mm thick images of the chest were obtained during administra tion of 100 mL Isovue 370 IV contrast. Coronal and oblique reconstruction images were generated and r eviewed. Exam utilizes a protocol for optimal evaluation of pulmonary arterial tree. Maximum intensity projections 3D imaging was utilized All CT scans are performed using dose optimization technique as appropriate and may include automated exposure control or mA/KV adjustment according to patient size. FINDINGS: A pulmonary embolus is not seen. A thoracic aortic aneurysm is not noted. A pleural effusion is not seen. A pericardial effusion is not seen. A 6 centimeter predominantly ground-glass opacity left upper lobe. Moderate tree-in-bud opacities lef t lung. Mild to moderate ground-glass opacities right upper lobe IMPRESSION: Negative for a pulmonary embolism. 6 centimeter predominantly ground-glass opacity left upper lobe. Moderate tree-in-bud opacities left lung. Mild to moderate ground-glass opacities right upper lobe These findings can be seen with Covid pneumonia or atypical pneumonia
[2023-02-24 00:04] VITALS: BMI 40.4
--- NOTE | 2023-02-24 00:10 | ER ---
Nurse's Notes [facility] Name: Say Olivera Age: 62 yrs Sex: Male : 1960 Arrival Date: 02/23/2023 Time: 18:45 Bed 14 Private MD: Diagnosis: COPD/ Chronic obstructive pulmonary disease with (acute) exacerbation;Hypoxemia;Pneumonia due to other specified bacteria-BILATERAL;Fever, unspecified;Tobacco abuse counseling;Tobacco use;Obesity, unspecified;Elevated white blood cell count;Pneumonia due to SARS-associated coronavirus;SARS-associated coronavirus as the cause of diseases classified elsewhere;Hypomagnesemia Presentation: 02/23 19:00 Chief complaint: EMS states: "Called out for altered mental status and weakness. Upon jw7 arrival pt was combative and mean, pt was unable to stand and move to stretcher, he had to be carried out of house". 19:00 Coronavirus screen: At this time, the client does not indicate any symptoms associated jw7 with coronavirus-19. Ebola Screen: No symptoms or risks identified at this time. Initial Sepsis Screen: Does the patient meet any 2 criteria? RR > 20 per min. Temp <36.0*C (96.8*F)) or > 38.3*C (100.9*F). Altered Mental Status. HR > 90 bpm. Yes Does the patient have a suspected source of infection? No. Patient's initial sepsis screen is negative. Risk Assessment: Do you want to hurt yourself or someone else? Patient reports no desire to harm self or others. Onset of symptoms was February 23, 2023. 19:00 Method Of Arrival: EMS: [place] [id number] 19:00 Acuity: PIERRE 3 jw7 Triage Assessment: 19:00 General: Appears in no apparent distress. uncomfortable, ill, Behavior is calm, jw7 cooperative. Pain: Complains of pain in abdomen Pain does not radiate. Pain currently is 3 out of 10 on a pain scale. Quality of pain is described as crampy, Pain began suddenly, Is continuous. EENT: No deficits noted. No signs and/or symptoms were reported regarding the EENT system. Neuro: Rivera Agitation-Sedation Scale (RASS): -1 Drowsy. 19:00 Cardiovascular: Heart tones S1 S2 present Capillary refill < 3 seconds JVD is absent jw7 Patient's skin is warm and dry. Respiratory: Airway is patent Trachea midline Respiratory effort is even, labored, Respiratory pattern is regular, symmetrical, tachypnea Breath sounds are clear bilaterally. GI: Abdomen is round non-distended, Bowel sounds present X 4 quads. Abd is soft and non tender X 4 quads. : No deficits noted. No signs and/or symptoms were reported regarding the genitourinary system. Derm: No deficits noted. No signs and/or symptoms reported regarding the dermatologic system. Musculoskeletal: Circulation, motion, and sensation intact. Range of motion: intact in all extremities. Historical: - Allergies: 20:19 shrimp/shellfish; jw7 20:19 thorazine; jw7 20:19 yellow dye #5; jw7 - Home Meds: 20:19 Albuterol Inhl [Active]; amlodipine oral [Active]; atorvastatin Oral [Active]; jw7 Benztropine Mesylate Oral [Active]; Bupropion Oral [Active]; cholecalciferol (vitamin D3) Oral [Active]; Fish Oil Oral [Active]; gabapentin oral [Active]; losartan Oral [Active]; Metformin Oral [Active]; sertraline Oral [Active]; - PMHx: 20:19 Cerebrovascular accident; COPD; Diabetes - IDDM; High Cholesterol; Hypertension; jw7 polycythemia vera; schizoaffective; Myocardial infarction; Major depressive disorder; - Immunization history:: Adult Immunizations unknown. - Social history:: Smoking status: Patient denies any tobacco usage or history of. - Family history:: not pertinent. Screenin:00 Abuse screen: Denies threats or abuse. Denies injuries from another. jw7 19:00 [facility] ED Fall Risk Assessment (Adult) History of falling in the last 3 months, jw7 including since admission No falls in past 3 months (0 pts) Confusion or Disorientation Yes (5 pts) Intoxicated or Sedated No (0 pts) Impaired Gait No (0 pts) Mobility Assist Device Used No (0 pt) Altered Elimination No (0 pt) Score/Fall Risk Level 3 or more points = High Risk Oriented to surroundings, Maintained a safe environment, Educated pt \\T\\ family on fall prevention, incl call for assistance when getting out of bed, Assessed \\T\\ reinforced patient's understanding of fall precautions, Provided non-skid footwear. Nutritional screening: No deficits noted. Tuberculosis screening: No symptoms or risk factors identified. Assessment: 19:10 General: see triage assessment. jw7 20:20 Reassessment: Patient appears in no apparent distress at this time. No changes from jw7 previously documented assessment. Patient and/or family updated on plan of care and expected duration. Pain level reassessed. 21:30 Reassessment: Patient appears in no apparent distress at this time. No changes from jw7 previously documented assessment. Patient and/or family updated on plan of care and expected duration. Pain level reassessed. 22:45 Reassessment: Patient appears in no apparent distress at this time. No changes from jw7 previously documented assessment. Patient and/or family updated on plan of care and expected duration. Pain level reassessed. Vital Signs: 19:00 BP 127 / 69; Pulse 115; Resp 28; Temp 103.2; Pulse Ox 92% on 2 lpm NC; Weight 111.13 jw7 kg; Height 5 ft. 6 in. ; Pain 0/10; 20:34 BP 114 / 64; Pulse 104; Resp 25; Pulse Ox 96% on 9 lpm Nebulizer Mask; jw7 20:36 Temp 98.1(O); jw7 21:30 BP 122 / 72; Pulse 104; Resp 29 S; Pulse Ox 92% on 3 lpm NC; jw7 22:30 BP 134 / 85; Pulse 105; Resp 30 S; Pulse Ox 92% on 4 lpm NC; jw7 19:00 Body Mass Index 39.54 (111.13 kg, 167.64 cm) jw7 19:00 Pain Scale: Adult 7 ED Course: 18:52 Patient arrived in ED. ll1 19:00 Arm band placed on. jw7 19:00 Patient has correct armband on for positive identification. Bed in low position. Call [facility] light in reach. Side rails up X2. 19:05 Anirudh Cruz MD is Attending Physician. [facility] 19:08 Venita Diggs, HEATHER is Primary Nurse. jw7 19:50 XRAY Chest (1 view) In Process Unspecified. EDMS 19:51 Conrad Jesus MD is Hospitalizing Provider. [facility] 20:00 Inserted saline lock: 20 gauge in left wrist, using aseptic technique. Blood collected. kmf 20:19 Triage completed. jw7 21:55 Chest For Pe Angio In Process Unspecified. EDMS 21:59 Provided Education on: need for admit. jw7 21:59 No provider procedures requiring assistance completed. Patient admitted, IV remains in jw7 place. Administered Medications: 19:31 Not Given (Duplicate Order): rocephin1 grams IV at per protocol once; Given slow IV tammy push per pharmacy instructions 20:06 Drug: NS 0.9% IV 1000 ml IV at 1 bolus Per protocol; 1000 mL bolus Route: IV; Rate: 1 jw7 bolus; Site: right wrist; 20:06 Drug: Famotidine IVP 20 mg IVP once; dilute with 10 mL 0.9% NaCl; give over 2 minutes jw7 Route: IVP; Site: right wrist; 20:07 Drug: MethylPrednisoLONE IVP 125 mg IVP once Route: IVP; Site: right wrist; jw7 20:07 Drug: Levalbuterol Inhalation 3.75 mg Inhalation once Route: Inhalation; jw7 20:07 Drug: Ipratropium Inhalation Aerosol 0.5 mg Inhalation once Route: Inhalation; jw7 20:07 Drug: Rocephin IV 2 grams IV at per protocol once; Given slow IV push per [facility] jw7 instructions Route: IV; Rate: per protocol; Site: right wrist; 21:10 Not Given (Medication unavailable ): Paxlovid Dose Pack 300 mg (150 mg x 2)-100 mg 1 jw7 packets PO once 22:31 Drug: Zithromax IVPB 500 mg IVPB once over 1 hrs; mix in 250 mL NS Route: IVPB; Infused jw7 Over: 1 hrs; Site: left wrist; 22:31 Drug: vancoMYCIN IVPB 1 grams IVPB once over 2 hrs Route: IVPB; Infused Over: 2 hrs; jw7 Site: right wrist; 22:31 Drug: Magnesium Sulfate IVPB 2 grams IVPB once over 2 hrs Route: IVPB; Infused Over: 2 jw7 hrs; Site: right wrist; Medication: 21:59 VIS not applicable for this client. jw7 Outcome: 19:53 Decision to Hospitalize by Provider. [facility] 02/24 00:09 Admitted to Med/surg accompanied by tech, via stretcher, room 418, lg3 Condition: stable Instructed on the need for admit, 00:09 Patient left the ED. lg3 Signatures: Dispatcher [employer] Anirudh Pedroza MD MD cha Able, Lacie RN RN lg3 Claus Bueno RN RN ll1 Venita Diggs RN RN jw7 Liya Daniel [facility]
[2023-02-24] MEDS ORDERED: NA CHLORIDE 0.9% 1,000 ML IV SCH (01:00)
[2023-02-24] MEDS: IPRATROPIUM BROM 0.5MG/2.5ML NEB SCH ×4 (01:00→20:13)
[2023-02-24 07:29] LABS: Absolute Lymphocytes (CBC) 0.4 K/uL (0.7-4.9); Hematocrit 46.6 % (39.6-49.0); Lymphocytes % 2.2 % (15.3-44.8); MCV 85.2 fL (80-100); MPV 7.5 fL (7.6-11.3); Platelets 204 thou/uL (152-406); RBC Red Blood Cell Count 5.47 M/uL (4.33-5.43)
[2023-02-24] MEDS: INSULIN REGULAR (HUMAN) 100 UNIT/ML SQ SCH ×5 (07:30→21:00)
[2023-02-24 07:38] LABS: Albumin 2.7 g/dL (3.4-5.0); Bilirubin Total 0.4 mg/dL (0.2-1.0)
[2023-02-24] MEDS: dexAMETHasone 10 MG/ML VIAL IV SCH (07:41)
[2023-02-24] MEDS: CEFTRIAXONE 1,000 MG in NA CHLORIDE 0.9% 50 ML IVPB SCH (07:43)
[2023-02-24] MEDS: AZITHROMYCIN IV 500 MG in NA CHLORIDE 0.9% 250 ML IVPB SCH (07:46)
[2023-02-24] MEDS ORDERED: MAGNESIUM SULFATE 1 gm IVPB 1 GM/100 ML BAG IV ONE (11:21)
--- NOTE | 2023-02-24 11:58 | P.CNS ---
Date of Consult: 02/24/23 Reason for Consult: Coronavirus pneumonia Chief Complaint: SOB History of Present Illness: Is 62 years of age with a history of COPD metabolic syndrome schizoaffective disorder brought to the emergency room with progressive dyspnea patient is a very poor historian apparently has been had dyspnea for a long time this time he had some fever symptom of upper respiratory tract infection generalized body pain and was admitted with coronavirus pneumonia Allergies apple Allergy (Verified 05/22/20 21:56) unknown corn Allergy (Verified 05/22/20 21:56) unknown Fish Containing Products Allergy (Verified 05/22/20 21:56) unknown fish derived Allergy (Verified 05/22/20 21:56) unknown chlorpromazine [From Thorazine] Adverse Reaction (Verified 05/22/20 21:56) severe confusion, agitation Home Medications: Aspirin [Adult Low Dose Aspirin EC] 81 mg PO DAILY 05/23/20 Atorvastatin Calcium 20 mg PO BEDTIME 05/23/20 Benztropine Mesylate [Cogentin*] 1 mg PO BID 05/23/20 Cholecalciferol (Vitamin D3) [Vitamin D3] 10 mcg PO DAILY 05/23/20 Cinnamon Bark [Cinnamon] 1 cap PO DAILY 05/23/20 Docosahexanoic AC/Epa [Fish Oil 1,000 MG*] 1 cap PO DAILY 05/23/20 Docusate Sodium 100 mg PO DAILY PRN 05/23/20 Haloperidol Decanoate [Haldol Decanoate 50] 50 mg IM Q30D 05/23/20 Lurasidone HCl [Latuda] 60 mg PO DAILY 05/23/20 Psyllium [Metamucil (Hydrocil)*] 5 ml PO DAILY PRN 05/23/20 Sertraline HCl 200 mg PO DAILY 05/23/20 Albuterol Neb [Proventil 0.083% Neb Soln] 2.5 mg NEB [id number] #120 amp 05/30/20 Alcohol Antiseptic Pads [Alcohol Prep Pads] 1 each TP TID #100 med..pad 05/30/20 Benzocaine/Menthol [Cepacol Sore Throat Lozenge] 1 each MM Q6H PRN #30 lozenge 05/30/20 Blood Sugar Diagnostic [Glucose Test Strip] 1 each MC TID #100 strip 05/30/20 Blood-Glucose Meter [Contour] 1 each MC TID #1 kit 05/30/20 Insulin 70/30 NPH/Reg Human [Novolin 70/30*] 20 unit SQ BIDAC #10 ml 05/30/20 Ipratropium Neb [Atrovent*] 0.5 mg NEB [id number] #120 amp 05/30/20 Lancets [Lancets Ultra Thin] 1 each MC TID #100 each 05/30/20 Nebulizer [Aeroneb Go Nebulizer] 1 each MC Q6H #1 each 05/30/20 Spironolactone [Aldactone*] 25 mg PO DAILY #30 tab 05/30/20 Syring-Needl,Disp,Insul,0.3 ml [Insulin Syringe] 1 each MC TID #100 disp.syrin 05/30/20 levoFLOXacin [Levaquin*] 750 mg PO DAILY #5 tab 05/30/20 predniSONE [Prednisone*] 20 mg PO BID #10 tab 05/30/20 - Past Medical/Surgical History Diabetic: Yes -: COPD -: Schizoaffective disorder -: Polycythemia -: Tobacco abuse -: Diabetes mellitus type 2 -: HTN -: Left forearm skin cancer -: Right hand infection and I&D Psychosocial/ Personal History: Patient lives at home alone, is retired from the . - Family History Father Medical History: Heart disease Mother Medical History: Heart disease - Social History Smoking Status: Current every day smoker Alcohol use: No CD- Drugs: No Caffeine use: No Place of Residence: Home Review of Systems 10-point ROS is otherwise unremarkable General: Weakness Respiratory: Cough, Shortness of Breath Physical Examination Temp Pulse Resp BP Pulse Ox 98.6 F 80 22 H 134/67 92 02/24/23 11:22 02/24/23 11:22 02/24/23 11:22 02/24/23 11:22 02/24/23 11:22 General: Alert, Oriented x1 Respiratory: Crackles/rales, Expiratory wheezes Cardiovascular: No edema, Regular rate/rhythm, Normal S1 S2 Gastrointestinal: Normal bowel sounds, Soft and benign Musculoskeletal: No clubbing, No swelling Integumentary: No rashes, No breakdown Laboratory Data (last 24 hrs) 02/23/23 02/23/23 02/23/23 19:20 19:20 19:20 WBC 18.40 H Hgb 16.6 Hct 47.8 Plt Count 214 PT 13.8 H INR 1.26 Sodium 127 L Potassium 3.9 BUN 12 Creatinine 0.89 Glucose 143 H Magnesium 1.0 L* Total Bilirubin 0.6 AST 13 L ALT 18 Alkaline Phosphatase 80 Lipase 42 - Problems (1) Pneumonia Current Visit: Yes Status: Acute Plan: Patient is 62 years of age admitted with pneumonia he seems to have left upper lobe consolidation bilateral interstitial changes elevated white count CT scan chest x-ray reviewed patient is mildly hypoxic tested positive for coronavirus mild hyponatremia hyperglycemia of Lasix DC IV fluids reduce dose of Decadron and remdesivir/ Add Lantus Qualifiers: Pneumonia type: due to unspecified organism Laterality: bilateral
--- NOTE | 2023-02-24 12:20 | RAD REPORT ---
EXAM DESCRIPTION: THIS REPORT CONTAINS FINDINGS THAT MAY BE CRITICAL TO PATIENT CARE: The findings w ere verbally discussed via telephone conference with Dr. Andrés Carbone at 1:22 AM EXTERNAL GRINDER TOOL on 02/24/2023. Electronically signed by: Babar Gallo MD 02/24/2023 01:26 AM EXTERNAL GRINDER TOOL End of Addendum EXAM DESCRIPTION: Ct Stroke Brain Wo Cont 02/24/2023 1:14 AM EXTERNAL GRINDER TOOL CLINICAL HISTORY: 62 years, Male, AMS COMPARISON: 02/20/2022 FINDINGS: Multiple transaxial tomograms of the brain were obtained from the base of the skull to the vertex without contrast. An individualized dose optimization technique, Automated Exposure Control, was utilized for the perfo rmed procedure. Brain parenchyma as well as the delaney and white matter differentiation demonstrate to be unremarkable. There is no evidence for acute intraparenchymal hemorrhage. There is no midline shift and/or mass ef fect. No focal areas of hypodensities. Lateral ventricles and cisterns displace normal appearance. No intra or extra axial fluid collections were seen. The calvarium demonstrate to be intact with no evidence for acute bony injuries. The visualized portions of the paranasal sinuses and orbits demons trate to be clear. IMPRESSION: No evidence for acute intraparenchymal hemorrhage. Unremarkable CT scan of the head without contrast. Electronically signed by: Babar Glalo MD 02/24/2023 01:15 AM EXTERNAL GRINDER TOOL Due to temporary technical issues with the PACS/Fluency reporting system, reports are being signed by the in house radiologists without review as a courtesy to insure prompt reporting. The interpreting radiologist is fully responsible for the content of the report.
[2023-02-24] MEDS: FUROSEMIDE 20 MG/ 2ML VIAL IV SCH (12:36)
[2023-02-24] MEDS: INSULIN GLARGINE 100 UNIT/ML SQ SCH (12:36)
[2023-02-24] MEDS: NIRMATRELVIR/RITONAVIR TABLET PO SCH ×2 (12:45→21:25)
--- NOTE | 2023-02-24 13:02 | P.PN ---
Date of Service: 02/24/23 Subjective: mumbles "feeling ok" snoring loudly, took a bit to wake him up, but sat up and opened yes ROS: 10 point ROS difficult to fully obtain Physical Exam: GEN: mumbled speech, somnolent, opens eyes to loud verbal stimuli HEENT: Normal conjunctiva, sclera anicteric CV: Regular rate and rhythm, no edema Pulm: Nonlabored respirations on 4L NC, Crackles/rales, Expiratory wheezes ABD: Soft, nontender, nondistended vitals reviewed Problem List: Acute hypoxic Respiratory failure secondary to Covid / Pneumonia Acute COPD exacerbation secondary to Covid / Pneumonia NIDDM2 Hypertension Hyperlipidemia Schizoaffective disorder Polycythemia Tobacco use Acute hypoxic Respiratory failure secondary to Covid / Pneumonia Acute COPD exacerbation secondary to Covid / Pneumonia CXR (02/23): Bilateral opacities R > L CTA chest (02/23): no PE. Covid pneumonia vs atypical infection CT brain (02/24): No evidence for acute intraparenchymal hemorrhage Covid -[address] Pollack - pulm consulted continue empiric azithromycin / rocephin (02/23-) Continue paxlovid for 5 days (02/24-02/28) Fever 103.2 overnight, +leukocytosis continue decadron LAINA atrovent NIDDM2 Insulin sliding scale. A1c: 9.5 Continue semglee. titrate as needed Hypertension Hyperlipidemia Schizoaffective disorder Polycythemia confirm home meds, restart as appropriate Tobacco use cessation advised Code: Full Dispo: Home, ~2-3 days Pending afebrile > 24 hours, oxygen weaned down, leukocytosis resolves
[2023-02-24 15:09] LABS: Blood Morphology Comment NOT SEEN (NOT SEEN); Platelet Estimate ADEQ
[2023-02-25] MEDS: IPRATROPIUM BROM 0.5MG/2.5ML NEB SCH ×4 (01:51→19:48)
[2023-02-25 07:06] LABS: Absolute Lymphocytes (CBC) 0.7 K/uL (0.7-4.9); Hematocrit 46.6 % (39.6-49.0); Lymphocytes % 4.3 % (15.3-44.8); MCV 84.5 fL (80-100); MPV 7.3 fL (7.6-11.3); Platelets 211 thou/uL (152-406); RBC Red Blood Cell Count 5.52 M/uL (4.33-5.43)
[2023-02-25 07:14] LABS: Magnesium 1.7 mg/dL (1.6-2.4); Potassium 4.3 mEq/L (3.5-5.1)
[2023-02-25] MEDS: INSULIN REGULAR (HUMAN) 100 UNIT/ML SQ SCH ×4 (07:30→21:00)
[2023-02-25] MEDS: dexAMETHasone 4 MG/ML VIAL IV SCH (08:55)
[2023-02-25] MEDS: FUROSEMIDE 20 MG/ 2ML VIAL IV SCH (08:55)
[2023-02-25] MEDS: CEFTRIAXONE 1,000 MG in NA CHLORIDE 0.9% 50 ML IVPB SCH (08:56)
[2023-02-25] MEDS: AZITHROMYCIN IV 500 MG in NA CHLORIDE 0.9% 250 ML IVPB SCH (08:56)
[2023-02-25] MEDS: NIRMATRELVIR/RITONAVIR TABLET PO SCH ×2 (08:56→20:45)
[2023-02-25] MEDS ORDERED: MAGNESIUM SULFATE 1 gm IVPB 1 GM/100 ML BAG IV ONE (09:00)
[2023-02-25] MEDS: INSULIN GLARGINE 100 UNIT/ML SQ SCH (09:00)
[2023-02-25 11:28] LABS: Specific Gravity 1.013 (1.005-1.030); Urine Bacteria None Seen /HPF (<20); Urine Bilirubin NEGATIVE (Negative); Urine Blood 2+ (Negative); Urine Clarity Clear (Clear); Urine Color Light-Yellow (Yellow); Urine Glucose NEGATIVE (Negative); Urine Mucus Slight /HPF (None Seen); Urine Protein 1+ (Negative); Urine RBC 21-50 /HPF (None Seen); Urine Urobilinogen Normal (Normal)
--- NOTE | 2023-02-25 11:55 | P.PN ---
Date of Service: 02/25/23 Subjective: Doing okay more awake / alert today oxygen increased yesterday to 20L high flow NC 100% FiO2 afebrile ROS: 10 point ROS difficult to fully obtain Physical Exam: GEN: mumbled speech, Awake, Alert HEENT: Normal conjunctiva, sclera anicteric CV: Regular rate and rhythm, no edema Pulm: Nonlabored respirations on High flow NC 100% FiO2. Crackles/rales, Expiratory wheezes ABD: Soft, nontender, nondistended vitals reviewed Problem List: Acute hypoxic Respiratory failure secondary to Covid / Pneumonia Acute COPD exacerbation secondary to Covid / Pneumonia NIDDM2 Hypertension Hyperlipidemia Schizoaffective disorder Polycythemia Tobacco use Acute hypoxic Respiratory failure secondary to Covid / Pneumonia Acute COPD exacerbation secondary to Covid / Pneumonia CXR (02/23): Bilateral opacities R > L CTA chest (02/23): no PE. Covid pneumonia vs atypical infection CT brain (02/24): No evidence for acute intraparenchymal hemorrhage Covid -[address] Pollack - pulm consulted continue empiric azithromycin / rocephin (02/23-) Continue paxlovid for 5 days (2-02/28) afebrile, +leukocytosis improving continue decadron LAINA atrovent NIDDM2 Insulin sliding scale. A1c: 9.5 Continue semglee. titrate as needed Hypertension Hyperlipidemia Schizoaffective disorder Polycythemia confirm home meds, restart as appropriate Tobacco use cessation advised Code: Full Dispo: Home, ~2-3 days Pending afebrile > 24 hours, oxygen weaned down, leukocytosis resolves
--- NOTE | 2023-02-25 12:39 | P.PN ---
Subjective Date of Service: 02/25/23 Chief Complaint: Respiratory failure secondary to pneumonia Subjective: Improving (Patient is subjectively improving although is still on high flow 100% FiO2) Review of Systems General: Weakness Respiratory: Cough, Shortness of Breath Physical Examination - Vital Signs Temperature: 97.6 F Blood Pressure: 110/56 Pulse: 90 Respirations: 20 Pulse Ox (%): 93 - Physical Exam General: Alert, In no apparent distress, Moderate distress Respiratory: Clear to auscultation bilaterally, Diminished, Crackles/rales Gastrointestinal: Normal bowel sounds, Soft and benign, Non-distended Musculoskeletal: No clubbing, No swelling Assessment And Plan - Current Problems (Diagnosis) (1) Pneumonia Current Visit: Yes Status: Acute Plan: Patient is 62 years of age admitted with bilateral pneumonia possibly a combination of coronavirus and bacterial pneumonia white count is elevated it is declining continue with IV antibiotics for now patient is currently on 100% FiO2 with 96% sat is very alert responsive cooperative continue to maintain in slight negative fluid balance labs chemistries all reviewed patient is on Paxlovid Qualifiers: Pneumonia type: due to unspecified organism Laterality: bilateral
[2023-02-25] MEDS: ENSURE MAX PROTEIN 330 ML LIQUID PO SCH (20:45)
[2023-02-25] MEDS: ACETAMINOPHEN 500 MG TAB PO PRN (20:45)
[2023-02-26] MEDS: IPRATROPIUM BROM 0.5MG/2.5ML NEB SCH ×4 (01:18→19:37)
[2023-02-26 07:15] LABS: Absolute Lymphocytes (CBC) 0.7 K/uL (0.7-4.9); Hematocrit 43.9 % (39.6-49.0); Lymphocytes % 4.2 % (15.3-44.8); MCV 84.4 fL (80-100); MPV 7.3 fL (7.6-11.3); Platelets 276 thou/uL (152-406)
[2023-02-26 07:26] LABS: Magnesium 1.7 mg/dL (1.6-2.4); Potassium 3.9 mEq/L (3.5-5.1)
[2023-02-26] MEDS: INSULIN REGULAR (HUMAN) 100 UNIT/ML SQ SCH ×4 (07:30→20:00)
[2023-02-26] MEDS ORDERED: POTASSIUM CL SA 10 MEQ TAB PO ONE (08:15)
[2023-02-26] MEDS ORDERED: MAGNESIUM SULFATE 1 gm IVPB 1 GM/100 ML BAG IV ONE (08:30)
[2023-02-26] MEDS: ENSURE MAX PROTEIN 330 ML LIQUID PO SCH ×2 (09:00→19:59)
[2023-02-26] MEDS: NIRMATRELVIR/RITONAVIR TABLET PO SCH ×2 (09:00→20:00)
[2023-02-26] MEDS: CEFTRIAXONE 1,000 MG in NA CHLORIDE 0.9% 50 ML IVPB SCH (09:50)
[2023-02-26] MEDS: INSULIN GLARGINE 100 UNIT/ML SQ SCH (09:51)
[2023-02-26] MEDS: ENOXAPARIN 40 MG/0.4 ML SQ SCH (09:51)
[2023-02-26] MEDS: AZITHROMYCIN IV 500 MG in NA CHLORIDE 0.9% 250 ML IVPB SCH (09:51)
[2023-02-26] MEDS: FUROSEMIDE 20 MG/ 2ML VIAL IV SCH (09:52)
[2023-02-26] MEDS: dexAMETHasone 4 MG/ML VIAL IV SCH (09:52)
--- NOTE | 2023-02-26 12:02 | P.PN ---
Subjective Date of Service: 02/26/23 Chief Complaint: Respiratory failure secondary to pneumonia Subjective: Improving (Patient is subjectively improving his oxygenation is also better) Review of Systems General: Weakness Respiratory: Shortness of Breath Physical Examination - Vital Signs Temperature: 98.0 F Blood Pressure: 165/85 Pulse: 98 Respirations: 22 Pulse Ox (%): 94 - Physical Exam General: Alert, Oriented x3 Respiratory: Clear to auscultation bilaterally Cardiovascular: No edema, Regular rate/rhythm, Normal S1 S2 Assessment And Plan - Current Problems (Diagnosis) (1) Pneumonia Current Visit: Yes Status: Acute Plan: Patient is 62 years of age admitted with the bilateral pneumonia labs reviewed white count is declining blood pressure is elevated changed to p.o. levofloxacin DC IV antibiotics DC IV Decadron monitor sats as per respiratory satisfactory simple discharge planning may qualify for home O2 due to COVID-pneumonia patient's cultures are negative Qualifiers: Pneumonia type: due to unspecified organism Laterality: bilateral
--- NOTE | 2023-02-26 12:53 | P.PN ---
Date of Service: 02/26/23 Subjective: doing okay, slight improvement remains on high flow, 60% FiO2 afebrile ROS: 10 point ROS difficult to fully obtain Physical Exam: GEN: Awake, Alert HEENT: Normal conjunctiva, sclera anicteric CV: Regular rate and rhythm, no edema Pulm: Nonlabored respirations on High flow NC 60% FiO2. Crackles/rales, Expiratory wheezes ABD: Soft, nontender, nondistended vitals reviewed Problem List: Acute hypoxic Respiratory failure secondary to Covid / Pneumonia Acute COPD exacerbation secondary to Covid / Pneumonia NIDDM2 Hypertension Hyperlipidemia Schizoaffective disorder Polycythemia Tobacco use Acute hypoxic Respiratory failure secondary to Covid / Pneumonia Acute COPD exacerbation secondary to Covid / Pneumonia CXR (02/23): Bilateral opacities R > L CTA chest (02/23): no PE. Covid pneumonia vs atypical infection CT brain (02/24): No evidence for acute intraparenchymal hemorrhage Covid -[address] Pollack - pulm consulted Blood cx (02/23): 02/26 bottles growing GPC in clusters, ?contamination Previously given IV azithromycin / rocephin (02/23-02/26); deescalated to PO levaquin (02/26-) Continue paxlovid for 5 days (02/24-02/28) afebrile, +leukocytosis improving continue decadron - switched to PO 02/26 LAINA atrovent wean oxygen as tolerated Speech consulted - recommended soft / bite sized diet. swallow precautions. continue dysphagia therapy NIDDM2 Insulin sliding scale. A1c: 9.5 Continue semglee. titrate as needed Hypertension Hyperlipidemia Schizoaffective disorder Polycythemia confirm home meds, restart as appropriate Tobacco use cessation advised VTE: lovenox Code: Full Dispo: Home, ~2-3 days Pending afebrile > 24 hours, oxygen weaned down, leukocytosis resolves
[2023-02-26] MEDS: dexAMETHasone 4 MG TAB PO SCH (19:59)
[2023-02-26] MEDS: ACETAMINOPHEN 500 MG TAB PO PRN (19:59)
[2023-02-27] MEDS: IPRATROPIUM BROM 0.5MG/2.5ML NEB SCH ×4 (01:18→19:08)
[2023-02-27] MEDS: INSULIN REGULAR (HUMAN) 100 UNIT/ML SQ SCH ×4 (07:30→21:00)
--- NOTE | 2023-02-27 08:24 | RAD REPORT ---
EXAM DESCRIPTION: RADChest Single View02/27/2023 7:31 am CLINICAL HISTORY: covid pneumonia, f/u opacities COMPARISON: Chest Single View dated 02/23/2023; Chest Single View dated 02/20/2022; Chest Single View dated 11/23/2021; Chest Single View dated 06/12/2021; Chest For Pe Angio dated 02/23/2023 TECHNIQUE: Portable AP view of the chest. FINDINGS: Progressive central predominant patchy right lung airspace opacities the left upper lobe c entral opacity seen on the prior CT has since improved. No pneumothorax or effusion. The cardiomedia stinal contours are unremarkable. IMPRESSION: Waxing and waning airspace opacities as above most suggestive of atypical pneumonia, inc luding COVID 19 pneumonia among other etiologies.
[2023-02-27 08:46] LABS: Potassium 4.1 mEq/L (3.5-5.1)
[2023-02-27] MEDS: levoFLOXacin 750 MG TAB PO SCH (08:54)
[2023-02-27] MEDS: INSULIN GLARGINE 100 UNIT/ML SQ SCH (08:54)
[2023-02-27] MEDS: dexAMETHasone 4 MG TAB PO SCH ×2 (08:54→21:03)
[2023-02-27] MEDS: ENOXAPARIN 40 MG/0.4 ML SQ SCH (08:54)
[2023-02-27] MEDS: FUROSEMIDE 20 MG/ 2ML VIAL IV SCH (08:54)
[2023-02-27] MEDS: ENSURE MAX PROTEIN 330 ML LIQUID PO SCH ×2 (08:56→21:00)
[2023-02-27] MEDS: NIRMATRELVIR/RITONAVIR TABLET PO SCH ×2 (08:57→21:03)
[2023-02-27] MEDS: SPIRONOLACTONE 25 MG TABLET PO SCH (09:10)
--- NOTE | 2023-02-27 12:24 | P.PN ---
Date of Service: 02/27/23 Subjective: remains on high flow, 65% FiO2 afebrile feels better more awake/alert, hungry, appetite improving ROS: 10 point ROS difficult to fully obtain Physical Exam: GEN: Awake, Alert HEENT: Normal conjunctiva, sclera anicteric CV: Regular rate and rhythm, no edema Pulm: Nonlabored respirations on High flow NC 65% FiO2. Crackles/rales, mild expiratory wheezes ABD: Soft, nontender, nondistended vitals reviewed Problem List: Acute hypoxic Respiratory failure secondary to Covid Pneumonia Acute COPD exacerbation secondary to Covid Pneumonia NIDDM2 Hypertension Hyperlipidemia Schizoaffective disorder Polycythemia Tobacco use Acute hypoxic Respiratory failure secondary to Covid Pneumonia Acute COPD exacerbation secondary to Covid Pneumonia CXR (02/23): Bilateral opacities R > L CTA chest (02/23): no PE. Covid pneumonia vs atypical infection CT brain (02/24): No evidence for acute intraparenchymal hemorrhage CXR (02/27): waxing / waning airspace opacities. atypical pneumonia vs covid pneumonia Blood cx (02/23): 1 bottles growing GPC in clusters, ?contamination Covid -[address] Pollack - pulm consulted Previously given IV azithromycin / rocephin (02/23-02/26); deescalated to PO levaquin (02/26-) Continue paxlovid for 5 days (02/24-02/28) afebrile, +leukocytosis continue PO decadron LAINA atrovent wean oxygen as tolerated Speech consulted - recommended soft / bite sized diet. swallow precautions. continue dysphagia therapy NIDDM2 Insulin sliding scale. A1c: 9.5 Continue semglee. titrate as needed Hypertension Hyperlipidemia Schizoaffective disorder Polycythemia confirm home meds, restart as appropriate Tobacco use cessation advised VTE: lovenox Code: Full Dispo: Home vs SNF, ~3 days Pending afebrile > 24 hours, oxygen weaned down, leukocytosis resolves PT consult once oxygenation improved
--- NOTE | 2023-02-27 13:12 | P.PN ---
Subjective Date of Service: 02/27/23 Chief Complaint: Respiratory failure secondary to pneumonia Subjective: Improving (Patient is subjectively improved and is 96% on high flow 60%) Review of Systems General: Weakness Respiratory: Shortness of Breath Physical Examination - Vital Signs Temperature: 98.7 F Blood Pressure: 177/95 Pulse: 80 Respirations: 16 Pulse Ox (%): 80 - Physical Exam General: Alert, Oriented x3, Mild distress Respiratory: Clear to auscultation bilaterally, Diminished Cardiovascular: No edema, Regular rate/rhythm, Normal S1 S2 Assessment And Plan - Current Problems (Diagnosis) (1) Pneumonia Current Visit: Yes Status: Acute Plan: Patient is 62 years of age admitted with bilateral pneumonia the patient is improving oxygen requirements have declined blood pressure remains a little elevated continue to titrate O2 down to a sat of 90% chest x-ray today shows prominent consolidation on the right side cultures are so far negative Qualifiers: Pneumonia type: due to unspecified organism Laterality: bilateral
--- NOTE | 2023-02-27 13:52 | EKG ---
Test Date: 2023-02-23 Test Time: 19:41:55 Safety Compliance Specialist: LUCY MEASUREMENT RESULTS: Intervals: Rate: 114 ID: [id number] QRSD: 98 QT: 342 QTc: 471 [place]: P: 25 ID: [id number] QRS: -69 T: 53 INTERPRETIVE STATEMENTS: Sinus tachycardia Left anterior fascicular block Abnormal ECG Compared to ECG 02/20/2022 17:49:09 Left anterior fascicular block now present Sinus rhythm no longer present Atrial premature complex(es) no longer present Left-axis deviation no longer present Left ventricular hypertrophy no longer present Early repolarization no longer present Electronically Signed On 02-27-23 13:43:22 FIRER RETORT by Jeff Patino
[2023-02-28] MEDS: IPRATROPIUM BROM 0.5MG/2.5ML NEB SCH ×4 (01:14→20:01)
[2023-02-28] MEDS: ACETAMINOPHEN 500 MG TAB PO PRN (04:18)
[2023-02-28 07:25] LABS: Absolute Lymphocytes (CBC) 0.6 K/uL (0.7-4.9); Hematocrit 47.3 % (39.6-49.0); Lymphocytes % 4.8 % (15.3-44.8); MCV 84.5 fL (80-100); Platelets 423 thou/uL (152-406)
[2023-02-28] MEDS: INSULIN REGULAR (HUMAN) 100 UNIT/ML SQ SCH ×4 (07:30→20:08)
[2023-02-28 07:41] LABS: Albumin 2.7 g/dL (3.4-5.0); Bilirubin Total 0.4 mg/dL (0.2-1.0); Magnesium 1.9 mg/dL (1.6-2.4); Potassium 4.5 mEq/L (3.5-5.1); Protein, Total 7.3 g/dL (6.4-8.2)
[2023-02-28] MEDS: SPIRONOLACTONE 25 MG TABLET PO SCH (08:05)
[2023-02-28] MEDS: HYDRALAZINE HCL 20 MG/ML VIAL IV PRN ×2 (08:05→20:04)
[2023-02-28] MEDS: FUROSEMIDE 20 MG/ 2ML VIAL IV SCH (08:05)
[2023-02-28] MEDS: NIRMATRELVIR/RITONAVIR TABLET PO SCH ×2 (08:05→20:00)
[2023-02-28] MEDS: ENOXAPARIN 40 MG/0.4 ML SQ SCH (08:06)
[2023-02-28] MEDS: levoFLOXacin 750 MG TAB PO SCH (08:07)
[2023-02-28] MEDS: ENSURE MAX PROTEIN 330 ML LIQUID PO SCH ×2 (08:07→20:01)
[2023-02-28] MEDS: dexAMETHasone 4 MG TAB PO SCH ×2 (08:07→20:00)
[2023-02-28] MEDS: INSULIN GLARGINE 100 UNIT/ML SQ SCH (08:08)
[2023-02-28 08:55] LABS: Blood Morphology Comment NOT SEEN (NOT SEEN); Platelet Estimate ADEQ; White Blood Cell Scan OK (OK)
--- NOTE | 2023-02-28 10:46 | P.PN ---
Subjective Date of Service: 02/28/23 Chief Complaint: Respiratory failure secondary to pneumonia Physical Examination - Vital Signs Temperature: 97.3 F Blood Pressure: 165/90 Pulse: 71 Respirations: 22 Pulse Ox (%): 97 - Studies Microbiology Data (last 24 hrs): 02/23/23 19:20 Blood - Blood Aerobic Blood Culture - Final 02/23/23 19:20 Blood - Blood Blood Culture Gram Stain - Final Assessment And Plan - Current Problems (Diagnosis) (1) Pneumonia Current Visit: Yes Status: Acute Plan: Patient is 62 years of age admitted with bilateral pneumonia the patient is improving oxygen requirements have declined blood pressure remains a little elevated continue to titrate O2 down to a sat of 90% chest x-ray today shows prominent consolidation on the right side cultures are so far negative Qualifiers: Pneumonia type: due to unspecified organism Laterality: bilateral
--- NOTE | 2023-02-28 11:44 | P.PN ---
Date of Service: 02/28/23 Subjective: oxygen requirements slowly improving; down to 25L hi flow 55% FiO2 reports occasional episodes of difficulty catching his breath appetite slowly improving more alert / awake afebrile ROS: 10 point ROS difficult to fully obtain Physical Exam: GEN: Awake, Alert HEENT: Normal conjunctiva, sclera anicteric CV: Regular rate and rhythm, no edema Pulm: Nonlabored respirations on 25L High flow NC 55% FiO2. Crackles/rales, mild expiratory wheezes ABD: Soft, nontender, nondistended vitals reviewed Problem List: Acute hypoxic Respiratory failure secondary to Covid Pneumonia Acute COPD exacerbation secondary to Covid Pneumonia NIDDM2 Hypertension Hyperlipidemia Schizoaffective disorder Polycythemia Tobacco use Acute hypoxic Respiratory failure secondary to Covid Pneumonia Acute COPD exacerbation secondary to Covid Pneumonia CXR (02/23): Bilateral opacities R > L CTA chest (02/23): no PE. Covid pneumonia vs atypical infection CT brain (02/24): No evidence for acute intraparenchymal hemorrhage CXR (02/27): waxing / waning airspace opacities. atypical pneumonia vs covid pneumonia Blood cx (02/23): 02/26 bottles growing GPC in clusters, ?contamination Covid -[address] Pollack - pul consulted Previously given IV azithromycin / rocephin (02/23-02/26); deescalated to PO levaquin (02/26-) Continue paxlovid for 5 days (2-02/28) afebrile, +leukocytosis continue PO decadron LAINA atrovent wean oxygen as tolerated Speech consulted - recommended soft / bite sized diet. swallow precautions. continue dysphagia therapy NIDDM2 Insulin sliding scale. A1c: 9.5 Continue semglee. titrate as needed Hypertension Hyperlipidemia Schizoaffective disorder Polycythemia confirm home meds, restart as appropriate Tobacco use cessation advised VTE: lovenox Code: Full Dispo: Home vs SNF, ~3 days Pending afebrile > 24 hours, oxygen weaned down, leukocytosis resolves PT consult once oxygenation improved
[2023-02-28] MEDS ORDERED: MAGNES/ALUMIN/SIMET 30ML UCUP PO PRN (22:09)
[2023-03-01] MEDS: IPRATROPIUM BROM 0.5MG/2.5ML NEB SCH ×3 (01:50→13:00)
[2023-03-01] MEDS: ACETAMINOPHEN 500 MG TAB PO PRN ×2 (04:42→16:01)
[2023-03-01 06:20] LABS: Absolute Lymphocytes (CBC) 0.8 K/uL (0.7-4.9); Hematocrit 48.9 % (39.6-49.0); Lymphocytes % 5.1 % (15.3-44.8); MCV 83.7 fL (80-100); MPV 6.7 fL (7.6-11.3); Platelets 455 thou/uL (152-406); RBC Red Blood Cell Count 5.85 M/uL (4.33-5.43)
[2023-03-01 06:34] LABS: Magnesium 1.9 mg/dL (1.6-2.4); Potassium 4.2 mEq/L (3.5-5.1)
[2023-03-01] MEDS: levoFLOXacin 750 MG TAB PO SCH (08:46)
[2023-03-01] MEDS: dexAMETHasone 4 MG TAB PO SCH ×2 (08:46→19:46)
[2023-03-01] MEDS: ENOXAPARIN 40 MG/0.4 ML SQ SCH (08:46)
[2023-03-01] MEDS: SPIRONOLACTONE 25 MG TABLET PO SCH ×2 (08:47→19:48)
[2023-03-01] MEDS: FUROSEMIDE 20 MG/ 2ML VIAL IV SCH (08:47)
[2023-03-01] MEDS: ENSURE MAX PROTEIN 330 ML LIQUID PO SCH ×2 (08:47→19:47)
[2023-03-01] MEDS: HYDRALAZINE HCL 20 MG/ML VIAL IV PRN (08:54)
[2023-03-01] MEDS: INSULIN REGULAR (HUMAN) 100 UNIT/ML SQ SCH ×4 (08:54→19:26)
[2023-03-01] MEDS: INSULIN GLARGINE 100 UNIT/ML SQ SCH (09:09)
[2023-03-01 09:10] LABS: Blood Morphology Comment NOT SEEN (NOT SEEN); Platelet Estimate INCR
--- NOTE | 2023-03-01 09:15 | P.PN ---
Date of Service: 03/01/23 Subjective: Feeling a little better today; breathing a little easier remains on 25L hi flow 55% FiO2 appetite slowly improving hasn't gotten out of bed much some pain bilaterally of ears afebrile ROS: 10 point ROS as noted above, otherwise negative Physical Exam: GEN: Awake, Alert HEENT: Normal conjunctiva, sclera anicteric CV: Regular rate and rhythm, no edema Pulm: Nonlabored respirations on 25L High flow NC 55% FiO2. Crackles/rales, mild expiratory wheezes ABD: Soft, nontender, nondistended vitals reviewed Problem List: Acute hypoxic Respiratory failure secondary to Covid Pneumonia Acute COPD exacerbation secondary to Covid Pneumonia Mild hyponatremia, acute on chronic NIDDM2 Hypertension Hyperlipidemia Schizoaffective disorder Polycythemia Tobacco use Acute hypoxic Respiratory failure secondary to Covid Pneumonia Acute COPD exacerbation secondary to Covid Pneumonia CXR (02/23): Bilateral opacities R > L CTA chest (02/23): no PE. Covid pneumonia vs atypical infection CT brain (02/24): No evidence for acute intraparenchymal hemorrhage CXR (02/27): waxing / waning airspace opacities. atypical pneumonia vs covid pneumonia CXR (03/01): stable-mild improvement of patchy right airspace opacities Dr. Pollack - pul consulted Blood cx (02/23): No growth. (02/26 bottles grew GPC in clusters - likely a contamination) Previously given IV azithromycin / rocephin (02/23-02/26); deescalated to PO levaquin (02/26-) completed 5 days of paxlovid (02/24-02/28) afebrile, +leukocytosis slightly worse (03/01); likely reactive to steroids continue PO decadron LAINA atrovent wean oxygen as tolerated Speech consulted - recommended soft / bite sized diet. swallow precautions. continue dysphagia therapy Mild hyponatremia, acute on chronic h/o on chronic hyponatremia. Baseline seems to be around low 130s Na 127 on admission. Fluctuating levels currently 128 iv lasix dc'd per pulm NIDDM2 Insulin sliding scale. A1c: 9.5 Continue semglee. titrate as needed Hypertension Hyperlipidemia Schizoaffective disorder Polycythemia start norvasc confirm home meds monitor BP Tobacco use cessation advised VTE: lovenox Code: Full Dispo: Home vs SNF, ~2-3 days Pending oxygen weaned down, leukocytosis resolves PT consult once oxygenation improved
--- NOTE | 2023-03-01 10:58 | RAD REPORT ---
EXAM DESCRIPTION: RADChest Single View03/01/2023 7:04 am CLINICAL HISTORY: pneumonia COMPARISON: Chest Single View dated 02/27/2023; Chest Single View dated 02/23/2023; Chest Single View da bright 02/20/2022; Chest Single View dated 11/23/2021 TECHNIQUE: Portable AP view of the chest. FINDINGS: Persistent patchy airspace opacities throughout the right lung, stable to mildly improved since the prior, concerning for pneumonia. No pneumothorax or effusion. The cardiomediastinal contou rs are unremarkable. IMPRESSION: Stable to mild improvement of the patchy right airspace opacities.
--- NOTE | 2023-03-01 11:39 | P.PN ---
Subjective Date of Service: 03/01/23 Chief Complaint: Respiratory failure secondary to pneumonia Subjective: Improving (Patient is improving oxygen requirements declining) Review of Systems General: Weakness Respiratory: Shortness of Breath Physical Examination - Vital Signs Temperature: 97.9 F Blood Pressure: 178/96 Pulse: 85 Respirations: 22 Pulse Ox (%): 97 - Physical Exam General: Alert, In no apparent distress, Oriented x3 Respiratory: Clear to auscultation bilaterally, Diminished Cardiovascular: No edema, Regular rate/rhythm - Studies Microbiology Data (last 24 hrs): 02/23/23 19:36 Blood - Blood Aerobic Blood Culture - Final No growth in 5 days. 02/23/23 19:36 Blood - Blood Anaerobic Blood Culture - Final No growth in 5 days. 02/23/23 19:20 Blood - Blood Aerobic Blood Culture - Final 02/23/23 19:20 Blood - Blood Blood Culture Gram Stain - Final 02/23/23 19:20 Blood - Blood Anaerobic Blood Culture - Final No growth in 5 days. Assessment And Plan - Current Problems (Diagnosis) (1) Pneumonia Current Visit: Yes Status: Acute Plan: Patient admitted with pneumonia chest x-ray still shows more prominent changes on the right side and to titrate his sat down to 90% hopefully we can take him off high flow oxygen he is currently stable vital signs are all stable no evidence of an active infection I also ordered physical therapy patient has mild hyponatremia white count is stable around 15,000 continue with low-dose Decadron DC IV Lasix may be causing hyponatremia patient is on spironolactone twice a day blood pressure elevated add amlodipine Qualifiers: Pneumonia type: due to unspecified organism Laterality: bilateral
[2023-03-01] MEDS: AMLODIPINE 5 MG TAB PO SCH (12:49)
[2023-03-01] MEDS ORDERED: IPRATROPIUM BROM 0.5MG/2.5ML NEB PRN (13:44)
[2023-03-02] MEDS: HYDRALAZINE HCL 20 MG/ML VIAL IV PRN (01:00)
[2023-03-02 06:58] LABS: Absolute Lymphocytes (CBC) 0.9 K/uL (0.7-4.9); Hematocrit 50.9 % (39.6-49.0); Lymphocytes % 4.6 % (15.3-44.8); MCV 83.7 fL (80-100); MPV 6.7 fL (7.6-11.3); Platelets 565 thou/uL (152-406); RBC Red Blood Cell Count 6.08 M/uL (4.33-5.43)
[2023-03-02 07:17] LABS: Albumin 2.9 g/dL (3.4-5.0); Bilirubin Total 0.4 mg/dL (0.2-1.0); Magnesium 1.9 mg/dL (1.6-2.4); Potassium 4.2 mEq/L (3.5-5.1); Protein, Total 7.4 g/dL (6.4-8.2)
[2023-03-02] MEDS: dexAMETHasone 4 MG TAB PO SCH (08:22)
[2023-03-02] MEDS: AMLODIPINE 5 MG TAB PO SCH (08:22)
[2023-03-02] MEDS: ENOXAPARIN 40 MG/0.4 ML SQ SCH (08:22)
[2023-03-02] MEDS: INSULIN REGULAR (HUMAN) 100 UNIT/ML SQ SCH ×4 (08:23→20:42)
[2023-03-02] MEDS: SPIRONOLACTONE 25 MG TABLET PO SCH ×2 (08:23→20:42)
[2023-03-02] MEDS: levoFLOXacin 750 MG TAB PO SCH (08:23)
[2023-03-02] MEDS: INSULIN GLARGINE 100 UNIT/ML SQ SCH (08:23)
[2023-03-02] MEDS: ENSURE MAX PROTEIN 330 ML LIQUID PO SCH ×2 (08:23→20:41)
--- NOTE | 2023-03-02 09:34 | P.PN ---
Date of Service: 03/02/23 Subjective: Appears to be breathing more comfortably - needing less oxygen today down to 20L hi flow 50% FiO2 may benefit from SNF per PT no acute events overnight afebrile ROS: 10 point ROS as noted above, otherwise negative Physical Exam: GEN: Awake, Alert HEENT: Normal conjunctiva, sclera anicteric CV: Regular rate and rhythm, no edema Pulm: Nonlabored respirations on 20L High flow NC 50% FiO2. Crackles/rales, mild expiratory wheezes ABD: Soft, nontender, nondistended vitals reviewed Problem List: Acute hypoxic Respiratory failure secondary to Covid Pneumonia Acute COPD exacerbation secondary to Covid Pneumonia Mild hyponatremia, acute on chronic NIDDM2 Hypertension Hyperlipidemia Schizoaffective disorder Polycythemia Tobacco use Acute hypoxic Respiratory failure secondary to Covid Pneumonia Acute COPD exacerbation secondary to Covid Pneumonia CXR (02/23): Bilateral opacities R > L CTA chest (02/23): no PE. Covid pneumonia vs atypical infection CT brain (02/24): No evidence for acute intraparenchymal hemorrhage CXR (02/27): waxing / waning airspace opacities. atypical pneumonia vs covid pneumonia CXR (03/01): stable-mild improvement of patchy right airspace opacities Dr. Pollack - pulm consulted Blood cx (02/23): No growth. (02/26 bottles grew GPC in clusters - likely a contamination) Previously given IV azithromycin / rocephin (02/23-02/26); deescalated to PO levaquin (02/26-) completed 5 days of paxlovid (02/24-02/28) afebrile, +leukocytosis worse (03/02); likely reactive to steroids continue PO decadron LAINA atrovent wean oxygen as tolerated Speech consulted - recommended soft / bite sized diet. swallow precautions. continue dysphagia therapy Continue PT Mild hyponatremia, acute on chronic h/o on chronic hyponatremia. Baseline seems to be around low 130s Na 127 on admission. Fluctuating levels IV lasix dc'd 03/01 per pulm [place] added 03/01 Continue to monitor NIDDM2 Insulin sliding scale. A1c: 9.5 Continue semglee. titrate as needed Hypertension Hyperlipidemia Schizoaffective disorder Polycythemia continue norvasc, added 03/01 confirm home meds monitor BP Tobacco use cessation advised VTE: lovenox Code: Full Dispo: LTAC vs SNF; still on HFNC Pending oxygen weaned down, leukocytosis resolves
--- NOTE | 2023-03-02 12:08 | P.PN ---
Subjective Date of Service: 03/02/23 Chief Complaint: Respiratory failure secondary to pneumonia Subjective: Improving (Patient is improving duration is around 96% feels better) Review of Systems General: Weakness Respiratory: Shortness of Breath Physical Examination - Vital Signs Temperature: 97.2 F Blood Pressure: 153/76 Pulse: 89 Respirations: 18 Pulse Ox (%): 98 - Physical Exam General: Alert, Oriented x3 Respiratory: Clear to auscultation bilaterally, Diminished Cardiovascular: No edema, Regular rate/rhythm, Normal S1 S2 Assessment And Plan - Current Problems (Diagnosis) (1) Pneumonia Current Visit: Yes Status: Acute Plan: Patient is improving plan to titrate O2 down to a sat of 90% physical therapy white count is still mildly elevated will DC steroids for now continue with spironolactone increase amlodipine to 10 mg a day patient is still hypertensive Qualifiers: Pneumonia type: due to unspecified organism Laterality: bilateral
[2023-03-02] MEDS ORDERED: AMLODIPINE 5 MG TAB PO ONE (13:00)
[2023-03-03] MEDS: INSULIN REGULAR (HUMAN) 100 UNIT/ML SQ SCH ×4 (07:30→19:49)
[2023-03-03 08:22] LABS: Absolute Lymphocytes (CBC) 1.3 K/uL (0.7-4.9); Lymphocytes % 6.7 % (15.3-44.8); MCV 84.7 fL (80-100); MPV 6.3 fL (7.6-11.3); Platelets 496 thou/uL (152-406); RBC Red Blood Cell Count 6.61 M/uL (4.33-5.43)
[2023-03-03 08:34] LABS: Bilirubin Total 0.5 mg/dL (0.2-1.0); Magnesium 2.1 mg/dL (1.6-2.4); Potassium 4.4 mEq/L (3.5-5.1); Protein, Total 7.2 g/dL (6.4-8.2)
[2023-03-03] MEDS: levoFLOXacin 750 MG TAB PO SCH (09:00)
[2023-03-03] MEDS: ENSURE MAX PROTEIN 330 ML LIQUID PO SCH ×2 (09:00→19:44)
[2023-03-03] MEDS: INSULIN GLARGINE 100 UNIT/ML SQ SCH (09:00)
[2023-03-03] MEDS: SPIRONOLACTONE 25 MG TABLET PO SCH ×2 (09:00→19:43)
[2023-03-03] MEDS: ENOXAPARIN 40 MG/0.4 ML SQ SCH (09:00)
[2023-03-03] MEDS: AMLODIPINE 10 MG TAB PO SCH (09:00)
[2023-03-03 09:28] LABS: Blood Morphology Comment NOT SEEN (NOT SEEN); Platelet Estimate ADEQ; White Blood Cell Scan OK (OK)
--- NOTE | 2023-03-03 17:22 | P.PN ---
Subjective Date of Service: 03/03/23 Chief Complaint: Respiratory failure secondary to pneumonia Patient denies shortness of breath. He took the HFNC off. Patient appeared to be anxious. Physical Examination - Vital Signs Temperature: 96.9 F Blood Pressure: 128/67 Pulse: 85 Respirations: 17 Pulse Ox (%): 92 Assessment And Plan - Plan Physical Exam: GEN: Awake, Alert HEENT: Normal conjunctiva, sclera anicteric CV: Regular rate and rhythm, no edema Pulm: Nonlabored respirations on 20L High flow NC 50% FiO2. Crackles/rales, mild expiratory wheezes ABD: Soft, nontender, nondistended vitals reviewed Diagnosis: Acute hypoxic Respiratory failure secondary to Covid Pneumonia Acute COPD exacerbation secondary to Covid Pneumonia Mild hyponatremia, acute on chronic NIDDM2 Hypertension Hyperlipidemia Schizoaffective disorder Polycythemia Tobacco use Plan: Acute hypoxic Respiratory failure secondary to Covid Pneumonia Acute COPD exacerbation secondary to Covid Pneumonia CXR (02/23): Bilateral opacities R > L CTA chest (02/23): no PE. Covid pneumonia vs atypical infection CT brain (02/24): No evidence for acute intraparenchymal hemorrhage CXR (02/27): waxing / waning airspace opacities. atypical pneumonia vs covid pneumonia CXR (03/01): stable-mild improvement of patchy right airspace opacities Dr. Pollack pulmonary is following. Blood cx (02/23): No growth. (02/26 bottles grew GPC in clusters - likely a contamination) Previously given IV azithromycin / rocephin (02/23-02/26); deescalated to PO levaquin (02/26-) completed 5 days of paxlovid (02/24-02/28) Leukocytosis likely reactive to steroids On po steroid. LAINA atrovent Patient is now tolerating room air. Speech evaluated his swallow and recommended soft / bite sized diet. Continue PT Mild hyponatremia, acute on chronic h/o on chronic hyponatremia. Baseline seems to be around low 130s Na 127 on admission. Fluctuating levels s/p IV lasix, dc'd 03/01 per pulm. Spironolactone added 03/01 Continue to monitor. NIDDM2 Insulin sliding scale. A1c: 9.5 On Semglee. titrate as needed Hypertension Hyperlipidemia Schizoaffective disorder Polycythemia Continue norvasc, added 03/01 Tobacco use Cessation advised VTE: lovenox Code: Full Dispo: SNF.
[2023-03-03] MEDS: ACETAMINOPHEN 500 MG TAB PO PRN (19:43)
[2023-03-03] MEDS: HYDRALAZINE HCL 20 MG/ML VIAL IV PRN (19:44)
[2023-03-03] MEDS ORDERED: LORazepam 2 MG/ML VIAL IV ONE (21:35)
[2023-03-04] MEDS: INSULIN REGULAR (HUMAN) 100 UNIT/ML SQ SCH ×4 (07:30→19:22)
[2023-03-04] MEDS: ENSURE MAX PROTEIN 330 ML LIQUID PO SCH ×2 (09:00→19:22)
[2023-03-04] MEDS: AMLODIPINE 10 MG TAB PO SCH (09:58)
[2023-03-04] MEDS: SPIRONOLACTONE 25 MG TABLET PO SCH ×2 (09:58→19:21)
[2023-03-04] MEDS: INSULIN GLARGINE 100 UNIT/ML SQ SCH (09:58)
[2023-03-04] MEDS: ENOXAPARIN 40 MG/0.4 ML SQ SCH (09:58)
[2023-03-04] MEDS: levoFLOXacin 750 MG TAB PO SCH (09:58)
--- NOTE | 2023-03-04 12:39 | P.PN ---
Subjective Date of Service: 03/04/23 Chief Complaint: Respiratory failure secondary to pneumonia Subjective: Improving (Patient is doing much better is currently on room air the week) Review of Systems General: Weakness Respiratory: Shortness of Breath Physical Examination - Vital Signs Temperature: 97.8 F Blood Pressure: 156/84 Pulse: 100 Respirations: 20 Pulse Ox (%): 98 - Physical Exam General: Alert, In no apparent distress, Oriented x3 Respiratory: Clear to auscultation bilaterally, Diminished Cardiovascular: No edema, Normal pulses Assessment And Plan - Current Problems (Diagnosis) (1) Pneumonia Current Visit: Yes Status: Acute Plan: Patient is doing much better he is now on room air plan to ambulate discharge planning white count is mildly elevated cultures vital signs are all stable Qualifiers: Pneumonia type: due to unspecified organism Laterality: bilateral
--- NOTE | 2023-03-04 14:10 | P.PN ---
Subjective Date of Service: 03/04/23 Chief Complaint: Respiratory failure secondary to pneumonia Patient denies shortness of breath. He is now tolerating oxygen by nasal cannula. He was able to stand with minimal support using a walker during therapy today. He does have difficulty taking steps. Physical Examination - Vital Signs Temperature: 97.8 F Blood Pressure: 156/84 Pulse: 100 Respirations: 20 Pulse Ox (%): 98 Assessment And Plan - Plan Physical Exam: GEN: Awake, Alert HEENT: Normal conjunctiva, sclera anicteric CV: Regular rate and rhythm, no edema Pulm: Nonlabored respirations on 20L High flow NC 50% FiO2. Crackles/rales, mild expiratory wheezes ABD: Soft, nontender, nondistended vitals reviewed Diagnosis: Acute hypoxic Respiratory failure secondary to Covid Pneumonia Acute COPD exacerbation secondary to Covid Pneumonia Mild hyponatremia, acute on chronic NIDDM2 Hypertension Hyperlipidemia Schizoaffective disorder Polycythemia Tobacco use Plan: Acute hypoxic Respiratory failure secondary to Covid Pneumonia Acute COPD exacerbation secondary to Covid Pneumonia CXR (02/23): Bilateral opacities R > L CTA chest (02/23): no PE. Covid pneumonia vs atypical infection CT brain (02/24): No evidence for acute intraparenchymal hemorrhage CXR (02/27): waxing / waning airspace opacities. atypical pneumonia vs covid pneumonia CXR (03/01): stable-mild improvement of patchy right airspace opacities Dr. Pollack pulmonary is following. Blood cx (02/23): No growth. (02/26 bottles grew GPC in clusters - likely a contamination) Previously given IV azithromycin / rocephin (02/23-02/26); deescalated to PO levaquin (02/26-) completed 5 days of paxlovid (02/24-02/28) Leukocytosis likely reactive to steroids Steroids discontinued by pulmonary. Bronchodilators Currently on room air. Speech evaluated his swallow and recommended soft / bite sized diet. Continue PT Mild hyponatremia, acute on chronic h/o on chronic hyponatremia. Baseline seems to be around low 130s Na 127 on admission. Fluctuating levels s/p IV lasix, dc'd 03/01 per pulm. Spironolactone added 03/01 Continue to monitor. NIDDM2 Insulin sliding scale. A1c: 9.5 On Semglee. titrate as needed Hypertension Hyperlipidemia Schizoaffective disorder Polycythemia Continue norvasc, added 03/01 Tobacco use Cessation advised VTE: lovenox Code: Full Dispo: SNF.
[2023-03-05 05:19] VITALS: O2SAT 95
[2023-03-05] MEDS: INSULIN REGULAR (HUMAN) 100 UNIT/ML SQ SCH ×2 (07:30→11:30)
[2023-03-05 08:31] LABS: Absolute Lymphocytes (CBC) 1.3 K/uL (0.7-4.9); Hematocrit 55.5 % (39.6-49.0); Lymphocytes % 7.4 % (15.3-44.8); MCV 84.7 fL (80-100); MPV 6.7 fL (7.6-11.3); Platelets 390 thou/uL (152-406); RBC Red Blood Cell Count 6.55 M/uL (4.33-5.43)
[2023-03-05] MEDS: INSULIN GLARGINE 100 UNIT/ML SQ SCH (08:42)
[2023-03-05 08:44] LABS: Potassium 4.3 mEq/L (3.5-5.1)
[2023-03-05] MEDS: AMLODIPINE 10 MG TAB PO SCH (08:45)
[2023-03-05] MEDS: ENSURE MAX PROTEIN 330 ML LIQUID PO SCH (08:45)
[2023-03-05] MEDS: SPIRONOLACTONE 25 MG TABLET PO SCH (08:45)
[2023-03-05] MEDS: levoFLOXacin 750 MG TAB PO SCH (08:45)
[2023-03-05] MEDS: ENOXAPARIN 40 MG/0.4 ML SQ SCH (08:45)
--- NOTE | 2023-03-05 13:19 | P.DS ---
Admission Date: 02/23/23 Discharge Date: 03/05/23 Disposition: TRANSFER TO SNF - REHAB Discharge Condition: FAIR Reason for Admission: Respiratory failure secondary to pneumonia Brief History of Present Illness: 62 yrs old Male with past medical history of COPD, diabetes, hypertension, schizoaffective disorder, hyperlipidemia, obesity, brought to ER for progressively worsening shortness of breath. Patient was having fever and upper respiratory tract symptoms associated with rhinitis, sore thoat, generalized weakness and generalized body pain. Associated with cough with mucoid expectoration. Patient denies any chest pain or shortness of breath. No nausea vomiting or diarrhea. Patient was assessed in the ER and was found to have multifocal pneumonia and COVID-positive along with acute hypoxic respiratory failure and the patient was admitted for further management. Hospital Course: Diagnosis: Acute hypoxic Respiratory failure secondary to Covid Pneumonia Acute COPD exacerbation secondary to Covid Pneumonia Mild hyponatremia, acute on chronic NIDDM2 Hypertension Hyperlipidemia Schizoaffective disorder Polycythemia Tobacco use Plan: Acute hypoxic Respiratory failure secondary to Covid Pneumonia Acute COPD exacerbation secondary to Covid Pneumonia CXR (02/23): Bilateral opacities R > L CTA chest (02/23): no PE. Covid pneumonia vs atypical infection CT brain (02/24): No evidence for acute intraparenchymal hemorrhage CXR (02/27): waxing / waning airspace opacities. atypical pneumonia vs covid pneumonia CXR (03/01): stable-mild improvement of patchy right airspace opacities Dr. Pollack pulmonary evaluated patient and assisted with management Blood cx (02/23): No growth. (02/26 bottles grew GPC in clusters - likely a contamination) Previously given IV azithromycin / rocephin (02/23-02/26); deescalated to PO levaquin (02/26-) Pt completed 5 days of paxlovid (02/24-02/28) Leukocytosis likely reactive to steroids Steroids discontinued by pulmonary. Bronchodilators Currently on room air. Speech evaluated his swallow and recommended soft / bite sized diet. Pt evaluated by PT and rehab recommended. Pt has been accepted to skilled rehab. Mild hyponatremia, acute on chronic h/o on chronic hyponatremia. Baseline seems to be around low 130s Na 127 on admission. Fluctuating levels s/p IV lasix. Pt started on Spironolactone. Hyponatremia overall improved. NIDDM2 Managed with Insulin sliding scale and Semglee. Hypertension Hyperlipidemia Schizoaffective disorder Polycythemia Stable. Please see med reconciliation for current meds. Tobacco use Cessation advised Vital Signs/Physical Exam: Temp Pulse Resp BP Pulse Ox 97.8 F 95 H 19 123/71 94 03/05/23 08:00 03/05/23 08:00 03/05/23 08:00 03/05/23 08:00 03/05/23 08:00 General: Alert, In no apparent distress, Oriented x2 HEENT: Mucous membr. moist/pink Neck: JVD not distended Respiratory: Clear to auscultation bilaterally, Diminished Cardiovascular: No edema, Regular rate/rhythm, Normal S1 S2 Gastrointestinal: Soft and benign, Non-distended, Other (Obese abdomen) Musculoskeletal: No swelling, No warmth Integumentary: No rashes, No cyanosis Neurological: Other (No focal motor deficit) Laboratory Data at Discharge: WBC 18.30 thou/uL (4.3-10.9) H 03/05/23 08:10 Hgb 18.8 g/dL (13.6-17.9) H 03/05/23 08:10 Hct 55.5 % (39.6-49.0) H 03/05/23 08:10 Plt Count 390 thou/uL (152-406) 03/05/23 08:10 PT 13.8 SECONDS (9.5-12.5) H 02/23/23 19:20 INR 1.26 02/23/23 19:20 Sodium 134 mEq/L (136-145) L 03/05/23 08:10 Potassium 4.3 mEq/L (3.5-5.1) 03/05/23 08:10 BUN 21 mg/dL (7-18) H 03/05/23 08:10 Creatinine 0.65 mg/dL (0.70-1.30) L 03/05/23 08:10 Glucose 116 mg/dL (74-106) H 03/05/23 08:10 Magnesium 2.1 mg/dL (1.6-2.4) 03/03/23 08:05 Total Bilirubin 0.5 mg/dL (0.2-1.0) 03/03/23 08:05 AST 44 U/L (15-37) H 03/03/23 08:05 ALT 169 U/L (16-61) H 03/03/23 08:05 Alkaline Phosphatase 78 U/L (45-117) 03/03/23 08:05 Lipase 42 U/L (13-75) 02/23/23 19:20 Home Medications: Aspirin [Adult Low Dose Aspirin EC] 81 mg PO DAILY 05/23/20 Atorvastatin Calcium 20 mg PO BEDTIME 05/23/20 Cholecalciferol (Vitamin D3) [Vitamin D3] 50 mcg PO DAILY 05/23/20 Sertraline HCl 100 mg PO BID 05/23/20 Lurasidone HCl [Latuda] 80 mg PO BEDTIME 02/26/23 Metformin HCl 1,000 mg PO BID 02/26/23 Albuterol Neb [Proventil 0.083% Neb Soln] 2.5 mg NEB Q6HP PRN amp 03/05/23 Amlodipine [Norvasc*] 10 mg PO DAILY tab 03/05/23 Ensure Max Protein 330 ml PO BID can 03/05/23 Insulin -Regular Human [Novolin -R*] See Protocol SQ ACHS ml 03/05/23 Insulin Glargine,Hum.rec.anlog [Semglee] 25 unit SQ DAILY ml 03/05/23 Ipratropium Neb [Atrovent*] 0.5 mg NEB [id number] PRN amp 03/05/23 Spironolactone [Aldactone*] 25 mg PO BID tab 03/05/23 levoFLOXacin [Levaquin*] 750 mg PO DAILY #5 tab 03/05/23 Diet: ADA Activity: Fall precautions Followup: ALFREDO FUENTES [Primary Care Provider] - (within 2 weeks) Time spent managing pt's care (in minutes): 40
[2023-03-05 14:36] VITALS: BP 146/89; TEMP 97.5
== END 2023-03-05 15:12 | DRG 871 ==
LOC: ER 18:45 → UNDOADMIN 21:45 → 4TH 21:45
PROVIDERS: ADMIT Family Medicine; ATTEND Internal Medicine
PROC: 5A0955A Assistance with Respiratory Ventilation, Greater than 96 Consecutive Hours, High Flow/Velocity Cannula (ICD-10-PCS; principal; 2023-02-25)
DX: A41.89 Other specified sepsis (principal); J12.82 Pneumonia due to coronavirus disease 2019; U07.1 COVID-19; J96.01 Acute respiratory failure with hypoxia; J44.1 Chronic obstructive pulmonary disease with (acute) exacerbation; J44.0 Chronic obstructive pulmonary disease with (acute) lower respiratory infection; Z68.41 Body mass index [BMI] 40.0-44.9, adult; E87.1 Hypo-osmolality and hyponatremia; R65.20 Severe sepsis without septic shock; E66.9 Obesity, unspecified; E83.42 Hypomagnesemia; Z86.73 Personal history of transient ischemic attack (TIA), and cerebral infarction without residual deficits; E11.9 Type 2 diabetes mellitus without complications; Z79.4 Long term (current) use of insulin; D45 Polycythemia vera; F20.9 Schizophrenia, unspecified; I25.2 Old myocardial infarction; F32.A Depression, unspecified; E78.5 Hyperlipidemia, unspecified; Z85.828 Personal history of other malignant neoplasm of skin; Z72.0 Tobacco use
CPT/HCPCS: 36415; 70450; 71045; 71275; 80048; 80053; 80076; 81001; 82805; 82947; 83605; 83690; 83735; 83880; 84484; 85025; 85610; 87040; 87205; 87635; 87804; 87807; 92526; 92610; 93005; 94640; 94660; 94760; 97110; 97116; 97161; 97530; 99285; J0360; J0696; J1100; J1650; J1815; J1940; J2270; J2930; J3475; J7030; J7050; J7613; J7614; J7644; J8499; J8540; Q9967